=== PATIENT | female | born 1975 | race Caucasian/White ===

== ENCOUNTER 2016-03-20 17:33 | Emergency (ER) | payer BC, MEDICAID ==
[~2016-03-20 17:33] MED LIST: HYDR-3713 PO; IBUP800T23 PO; LORA10TA2 PO; OMEP20CA3 PO; PERC5TAB6 PO; SING10TA32 PO; topamax PO
[2016-03-20 18:59] LABS: BASO % 0.5 % (0.0-1.0); EOS # 0.2 K/mm3 (0.0-0.50); EOS % 3.9 % (0.0-3.0); LARGE UNSTAINED CELL # 0.1 K/mm3 (0.0-0.4); LARGE UNSTAINED CELL % 1.2 % (0.0-4.0); LYMPH # 1.9 K/mm3 (1.5-4.5); LYMPH % 28.7 % (24.0-44.0); MEAN CORPUSCULAR HEMOGLOBIN 26.3 pg (27.0-33.0); MEAN CORPUSCULAR HGB CONC 31.3 g/dl (32.0-36.5); MEAN CORPUSCULAR VOLUME 84.1 fl (80.0-96.0); MONO # 0.3 K/mm3 (0.0-0.8); MONO % 4.2 % (0.0-5.0); NEUTROPHILS # 3.9 K/mm3 (1.8-7.7); NEUTROPHILS % 61.5 % (36.0-66.0); PLATELET COUNT, AUTOMATED 254 k/mm3 (150-450); RED CELL DISTRIBUTION WIDTH 14.3 % (11.5-14.5); WHITE BLOOD COUNT 6.4 K/mm3 (4.0-10.0)
[2016-03-20 19:01] LABS: CONTROL LINE UCG INT CTR LINE PRESENT
[2016-03-20 19:17] LABS: ALBUMIN 3.5 GM/DL (3.2-5.2); ALBUMIN/GLOBULIN RATIO 0.85 (1.00-1.93); ALKALINE PHOSPHATASE 84 U/L (45-117); ALT/SGPT 21 U/L (12-78); AMYLASE 35 U/L (25-115); ANION GAP 7 MEQ/L (8-16); AST/SGOT 16 U/L (15-37); BILIRUBIN,DIRECT < 0.1 MG/DL (0.0-0.2); BILIRUBIN,TOTAL 0.1 MG/DL (0.2-1.0); BLOOD UREA NITROGEN 17 MG/DL (7-18); CARBON DIOXIDE LEVEL 26 MEQ/L (21-32); CHLORIDE LEVEL 107 MEQ/L (98-107); CREATININE FOR GFR 0.86 MG/DL (0.55-1.02); GLOMERULAR FILTRATION RATE > 60.0 (>60); GLUCOSE, FASTING 83 MG/DL (70-105); POTASSIUM SERUM 3.6 MEQ/L (3.5-5.1); SODIUM LEVEL 140 MEQ/L (136-145); TOTAL PROTEIN 7.6 GM/DL (6.4-8.2)
[2016-03-20] MEDS ORDERED: KETOROLAC 30 MG/ML VIAL (J1885) As Ordered ONE (19:24)
[2016-03-20] MEDS ORDERED: GASTROGRAFIN SOLUTION 30ML (Q9963) As Ordered ONE (19:25)
[2016-03-20] MEDS ORDERED: ISOVUE-370 76% 100ML VIAL (Q9967) As Ordered ONE (21:24)
--- NOTE | 2016-03-20 22:30 | REPUSA ---
CT of the abdomen and pelvis with contrast Clinical statement: Pain. Technique: Multiple axial CT images were obtained from the base of the lungs through the floor of the pelvis utilizing 5 mm axial slices after administration of oral and nonionic intravenous contrast. C oronal and sagittal reconstructions were also obtained. Comparison: 06/25/2015. Findings: Chest: The visualized lung bases are clear. Abdomen: The liver, spleen, pancreas, kidneys, and adrenal glands are unremarkable. The aorta is with in normal limits. There is no evidence of abdominal lymphadenopathy or ascites. Pelvis: The bowel is unremarkable, with no obstructive or inflammatory changes. The appendix is adeola l. The urinary bladder is within normal limits. There is a simple left ovarian cyst measuring 2.6 x 2 .6 cm. The other pelvic structures appear grossly intact. There is no evidence of pelvic lymphadenopa thy or ascites. Bones: There is moderately severe degenerative disc disease at L5/S1 with large disc osteophyte compl ex that causes mild central canal narrowing at this level. No acute osseous abnormalities noted.. Impression: 1. Simple left ovarian cyst. 2. No obstructive or inflammatory bowel changes. 3. Moderately severe degenerative disc disease at L5/S1 with disc osteophyte complex causing central canal narrowing. If there is further clinical concern, MRI could be considered.
[2016-03-20] MEDS ORDERED: NORCO 5/325MG TABLET (BULK) As Ordered ONE (22:49)
--- NOTE | 2016-03-20 23:21 | EDDOCDS ---
Nurse's Notes [facility] Name: Kimberly Barahona Age: 40 yrs Sex: Female : 1975 Arrival Date: 03/20/2016 Time: 17:33 Bed TR7 Private MD: [facility] Diagnosis: Other abdominal pain-RIGHT LATERAL;Other ovarian cysts-LEFT, SIMPLE Presentation: 03/20 17:46 Presenting complaint: Patient states: right sided abdominal pain that radiates across [facility] upper abdomen for months. Acute neurological deficits are not present. Mechanism of Injury: No Mechanism of Injury. Adult Sepsis Screening: The patient does not have new or worsening altered mentation. Patient's respiratory rate is less than 22. Systolic blood pressure is greater than 100. Patient has a qSOFA score of 0- Negative Sepsis Screen. Suicide/Homicide risk assessment- the patient denies having any suicidal and/or homicidal ideations and does not present with any other emotional, behavioral or mental health complaints. Status: Patient is not a community service worker or dependent. Transition of care: patient was not received from another setting of care. 17:46 Acuity: MAXIMUS Level 3 [facility] 17:46 Method Of Arrival: Walkin/Carried/Asstd [facility] Triage Assessment: 17:51 General: Appears in no apparent distress, Behavior is appropriate for age, pleasant. [facility] Pain: Location: anterior aspect of right lateral abdomen Pain currently is 5 out of 10 on a pain scale. Pain radiates to right upper quadrant and left upper quadrant Quality of pain is described as stabbing. HIV screening NA for this visit Offered previously. Neurological: Level of Consciousness is awake, alert, Oriented to person, place, time. Respiratory: Airway is patent Respiratory effort is even, unlabored, Respiratory pattern is regular, symmetrical. GI: Reports upper abd pain, Pain is 5 out of 10 on a pain scale. Derm: Skin is pink, warm & dry. Musculoskeletal: No deficits noted. 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 albuterol sulfate 90 mcg/actuation Inhl HFAA 2 puffs every 4 hours as needed (Last dose: Unknown) 2. Claritin 10 mg Oral tab 1 tab once daily (Last dose: 03/19/2016) 3. Prilosec 40 mg Oral cpDR 1 cap once daily (Last dose: 03/19/2016) 4. Singulair 10 mg Oral tab 1 tab once daily (Last dose: 03/19/2016) 5. Topamax Unknown Oral 1 tab daily (Last dose: 03/19/2016) - PMHx: Asthma; Migraines; Ovarian cyst; Hypertension; - PSHx: Cholecystectomy; fibriod and ovary removal; - Social history: Smoking status: Patient states former smoker of tobacco. No barriers to communication noted, The patient speaks fluent Mosotho. - Family history: Not pertinent. - : The pt / caregiver states he / she is not on anticoagulants. Home medication list is obtained from the patient. - Exposure Risk Screening:: None identified. Screenin:46 Screening information is obtained from the patient. Fall risk: No risks identified. pml Assistance ADL's: requires no assistance with activities of daily living. Abuse/DV Screen: The patient / caregiver reports he/she is: not in a situation that causes fear, pain or injury. Nutritional screening: No deficits noted. Advance Directives: Currently, there is no health care proxy. home support is adequate. Assessment: 18:46 General: Appears in no apparent distress, comfortable, Behavior is appropriate for age, pml cooperative. Pain: Location: epigastric area and anterior aspect of right lateral abdomen Pain currently is 5 out of 10 on a pain scale. Neurological: Level of Consciousness is awake, alert, Oriented to person, place, time. Cardiovascular: Capillary refill < 3 seconds. Respiratory: Airway is patent Respiratory effort is even, unlabored. GI: Abdomen is non- distended. GI: Denies nausea, vomiting. Derm: Skin is pink, warm & dry. 19:30 General: Appears in no apparent distress, comfortable, Behavior is appropriate for age, jo3 cooperative. Neurological: Level of Consciousness is awake, alert, Oriented to person, place, time. Respiratory: Airway is patent Respiratory effort is even, unlabored. Derm: Skin is pink, warm & dry. 21:42 General: Pt returned from CT. Tolerated well. No apparent distress. Will continue to ld5 monitor. 23:16 General: Appears in no apparent distress, Behavior is cooperative. Neurological: Level ld5 of Consciousness is awake, alert. Respiratory: Airway is patent Respiratory effort is even, unlabored. GI: Denies nausea. Vital Signs: 17:35 BP 162 / 91; Pulse 86; Resp 18; Temp 97.8(O); Pulse Ox 100% on R/A; Weight 99.79 kg lr2 (R); Height 5 ft. 6 in. (167.64 cm) (R); Pain 5/10; 23:00 BP 159 / 92 (man/); Pulse 73; Resp 18; Temp 97.3(O); Pulse Ox 98% on R/A; Pain 4/10; kb5 17:35 Body Mass Index 35.51 (99.79 kg, 167.64 cm) lr2 Vitals: 17:35 Log In Time: March 20, 2016 at 17:32. lr2 ED Course: 17:34 Patient visited by Zara Pierre. lr2 17:34 Patient moved to Waiting lr2 17:35 [facility] is Private Physician. lr2 17:36 Patient moved to Pre RCE lr2 17:48 Triage Initiated kpj 18:03 Patient moved to Triage 1 srm 18:23 Joselyn Tolentino PA-C is PHCP. dt4 18:24 Ramila Mcdaniels MD is Attending Physician. dt4 18:24 Patient visited by Joselyn Tolentino PA-C. dt4 18:34 Patient moved to I5 / M5 srm 18:46 The patient / caregiver is instructed regarding the plan of care and ED course. Patient alcon has correct armband on for positive identification. Placed in gown. Bed in low position. Call light in reach. Side rails up X2. 18:46 Inserted peripheral IV: 20gauge IV in left antecubital area and blood collected. pml Patient tolerated the procedure well. 18:48 Patient visited by Humera Parks RN. pml 19:52 Patient visited by Tani Dillon PCA. kb5 20:32 Patient visited by Tani Dillon PCA. kb5 21:05 [facility] Payment Agreement was scanned into [employer] and attached to record. gb 21:29 Patient visited by Tani Dillon PCA. kb5 21:43 Patient visited by Zara Qiu RN. ld5 22:38 Edgar Yeh MD is Referral Physician. dt4 22:59 CT ABD & PELVIS: IV and Oral Contrast Returned. EDMS 23:01 Patient visited by Tani Dillon PCA. kb5 23:[address] [facility] ld5 23:16 Discontinued lock intact, bleeding controlled, pressure dressing applied, No ld5 redness/swelling at site. No procedures done that require assistance. 23:21 Patient visited by Zara Qiu,DEONDRE. ld5 Administered Medications: 19:30 Drug: Diatrizoate Meglumine & Sodium 10 ml [diatrizoate meglumine and diat.sodium 66 jo3 %-10 % oral solution (10 mL)] Route: PO; 19:35 Drug: ketorolac 30 mg [ketorolac 30 mg/mL (1 mL) injection solution (1 mL)] Route: IVP; jo3 Site: left antecubital; 20:00 Drug: Diatrizoate Meglumine & Sodium 10 ml [diatrizoate meglumine and diat.sodium 66 jo3 %-10 % oral solution (10 mL)] Route: PO; 23:05 Drug: HYDROcodone-acetaminophen 4 pack- 1 packets [hydrocodone 5 mg-acetaminophen 325 jo3 mg tablet (1 tabs)] {Co-Signature: ld5 (Zara Qiu RN).} Route: PO; 23:20 Follow up: Response: Med's dispensed home ld5 Order Results: Lab Order: Amylase; SPEC'M 03/20/16 18:45 Test: AMYLASE; Value: 35; Range: 25-115; Units: U/L; Status: F Lab Order: Basic Metabolic Profile; SPEC'M 03/20/16 18:45 Test: GLUCOSE, FASTING; Value: 83; Range: 70-105; Units: MG/DL; Status: F Test: BLOOD UREA NITROGEN; Value: 17; Range: 7-18; Units: MG/DL; Status: F Test: CREATININE FOR GFR; Value: 0.86; Range: 0.55-1.02; Units: MG/DL; Status: F Test: GLOMERULAR FILTRATION RATE; Value: > 60.0; Range: >60; Status: F Test: SODIUM LEVEL; Value: 140; Range: 136-145; Units: MEQ/L; Status: F Test: POTASSIUM SERUM; Value: 3.6; Range: 3.5-5.1; Units: MEQ/L; Status: F Test: CHLORIDE LEVEL; Value: 107; Range: 98-107; Units: MEQ/L; Status: F Test: CARBON DIOXIDE LEVEL; Value: 26; Range: 21-32; Units: MEQ/L; Status: F Test: ANION GAP; Value: 7; Range: 8-16; Abnormal: Below low normal; Units: MEQ/L; Status: F Test: CALCIUM LEVEL; Value: 8.0; Range: 8.5-10.1; Abnormal: Below low normal; Units: MG/DL; Status: F Test Note: ; Units are mL/min/1.73 m2 Chronic Kidney Disease Staging per NKF: Stage I & II GFR >=60 Normal to Mildly Decreased Stage III GFR 30-59 Moderately Decreased Stage IV GFR 15-29 Severely Decreased Stage V GFR <15 Very Little GFR Left ESRD GFR <15 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 Lab Order: CBC with Diff; SPEC'M 03/20/16 18:45 Test: WHITE BLOOD COUNT; Value: 6.4; Range: 4.0-10.0; Units: K/mm3; Status: F Test: RED BLOOD COUNT; Value: 4.09; Range: 4.00-5.40; Units: M/mm3; Status: F Test: HEMOGLOBIN; Value: 10.8; Range: 12.0-16.0; Abnormal: Below low normal; Units: g/dl; Status: F Test: HEMATOCRIT; Value: 34.4; Range: 36.0-47.0; Abnormal: Below low normal; Units: %; Status: F Test: MEAN CORPUSCULAR VOLUME; Value: 84.1; Range: 80.0-96.0; Units: fl; Status: F Test: MEAN CORPUSCULAR HEMOGLOBIN; Value: 26.3; Range: 27.0-33.0; Abnormal: Below low normal; Units: pg; Status: F Test: MEAN CORPUSCULAR HGB CONC; Value: 31.3; Range: 32.0-36.5; Abnormal: Below low normal; Units: g/dl; Status: F Test: RED CELL DISTRIBUTION WIDTH; Value: 14.3; Range: 11.5-14.5; Units: %; Status: F Test: PLATELET COUNT, AUTOMATED; Value: 254; Range: 150-450; Units: k/mm3; Status: F Test: NEUTROPHILS %; Value: 61.5; Range: 36.0-66.0; Units: %; Status: F Test: LYMPH %; Value: 28.7; Range: 24.0-44.0; Units: %; Status: F Test: MONO %; Value: 4.2; Range: 0.0-5.0; Units: %; Status: F Test: EOS %; Value: 3.9; Range: 0.0-3.0; Abnormal: Above high normal; Units: %; Status: F Test: BASO %; Value: 0.5; Range: 0.0-1.0; Units: %; Status: F Test: LARGE UNSTAINED CELL %; Value: 1.2; Range: 0.0-4.0; Units: %; Status: F Test: NEUTROPHILS #; Value: 3.9; Range: 1.8-7.7; Units: K/mm3; Status: F Test: LYMPH #; Value: 1.9; Range: 1.5-4.5; Units: K/mm3; Status: F Test: MONO #; Value: 0.3; Range: 0.0-0.8; Units: K/mm3; Status: F Test: EOS #; Value: 0.2; Range: 0.0-0.50; Units: K/mm3; Status: F Test: BASO #; Value: 0.0; Range: 0.0-0.2; Units: K/mm3; Status: F Test: LARGE UNSTAINED CELL #; Value: 0.1; Range: 0.0-0.4; Units: K/mm3; Status: F Lab Order: Lipase; SPEC'M 03/20/16 18:45 Test: LIPASE; Value: 174; Range: 73-393; Units: U/L; Status: F Lab Order: Liver Profile; SPEC' 03/20/16 18:45 Test: AST/SGOT; Value: 16; Range: 15-37; Units: U/L; Status: F Test: ALT/SGPT; Value: 21; Range: 12-78; Units: U/L; Status: F Test: ALKALINE PHOSPHATASE; Value: 84; Range: 45-117; Units: U/L; Status: F Test: BILIRUBIN,TOTAL; Value: 0.1; Range: 0.2-1.0; Abnormal: Below low normal; Units: MG/DL; Status: F Test: BILIRUBIN,DIRECT; Value: < 0.1; Range: 0.0-0.2; Units: MG/DL; Status: F Test: TOTAL PROTEIN; Value: 7.6; Range: 6.4-8.2; Units: GM/DL; Status: F Test: ALBUMIN; Value: 3.5; Range: 3.2-5.2; Units: GM/DL; Status: F Test: ALBUMIN/GLOBULIN RATIO; Value: 0.85; Range: 1.00-1.93; Abnormal: Below low normal; Status: F Lab Order: Urinalysis; SPEC'M 03/20/16 18:08 Test: APPEARANCE, URINE; Value: CLEAR; Range: CLEAR; Status: F Test: COLOR, URINE; Value: YELLOW; Range: YELLOW; Status: F Test: PH,URINE; Value: 7.0; Range: 5.0-9.0; Units: UNITS; Status: F Test: SPECIFIC GRAVITY URINE AUTO; Value: 1.019; Range: 1.002-1.035; Status: F Test: PROTEIN, URINE AUTO; Value: NEGATIVE; Range: NEGATIVE; Units: mg/dL; Status: F Test: GLUCOSE, URINE (UA) AUTO; Value: NEGATIVE; Range: NEGATIVE; Units: mg/dL; Status: F Test: KETONE, URINE AUTO; Value: NEGATIVE; Range: NEGATIVE; Units: mg/dL; Status: F Test: UROBILINOGEN, URINE AUTO; Value: 0.2; Range: 0.0-2.0; Units: mg/dL; Status: F Test: BILIRUBIN, URINE AUTO; Value: NEGATIVE; Range: NEGATIVE; Status: F Test: NITRITE, URINE AUTO; Value: NEGATIVE; Range: NEGATIVE; Status: F Test: LEUKOCYTE ESTERASE, URINE AUTO; Value: TRACE; Range: NEGATIVE; Abnormal: Above high normal; Status: F Test: BLOOD, URINE BLOOD; Value: NEGATIVE; Range: NEGATIVE; Status: F Test: WBC, URINE AUTO; Value: 1; Range: 0-3; Units: /HPF; Status: F Test: RBC, URINE AUTO; Value: 1; Range: 0-3; Units: /HPF; Status: F Test: BACTERIA, URINE AUTO; Value: NEGATIVE; Range: NEGATIVE; Status: F Test: SQUAMOUS EPITHELIAL CELL UR AU; Value: 1; Range: 0-6; Units: /HPF; Status: F Test: HYALINE CAST, URINE AUTO; Value: 0; Range: 0-1; Units: /LPF; Status: F Lab Order: CRP; SPEC'M 03/20/16 18:45 Test: C REACTIVE PROTEIN QUANTITATIV; Value: 0.66; Range: 0.00-0.30; Abnormal: Above high normal; Units: MG/DL; Status: F Lab Order: UCG- In Lab; SPEC'M 03/20/16 18:08 Test: URINE PREG TEST; Value: NEGATIVE; Range: NEGATIVE; Status: F Radiology Order: CT ABD & PELVIS: IV and Oral Contrast Test: CT ABD & PELVIS: IV and Oral Contrast REASON FOR EXAMINATION: right lateral abd pain; ; CT of the abdomen and pelvis with contrast; Clinical statement: Pain.; Technique: Multiple axial CT images were obtained from the base of the lungs through the floor of the; pelvis utilizing 5 mm axial slices after administration of oral and nonionic intravenous contrast. C; oronal and sagittal reconstructions were also obtained.; Comparison: 06/25/2015.; Findings:; Chest: The visualized lung bases are clear.; Abdomen: The liver, spleen, pancreas, kidneys, and adrenal glands are unremarkable. The aorta is with; in normal limits. There is no evidence of abdominal lymphadenopathy or ascites.; Pelvis: The bowel is unremarkable, with no obstructive or inflammatory changes. The appendix is adeola; l. The urinary bladder is within normal limits. There is a simple left ovarian cyst measuring 2.6 x 2; .6 cm. The other pelvic structures appear grossly intact. There is no evidence of pelvic lymphadenopa; thy or ascites.; Bones: There is moderately severe degenerative disc disease at L5/S1 with large disc osteophyte compl; ex that causes mild central canal narrowing at this level. No acute osseous abnormalities noted..; Impression:; 1. Simple left ovarian cyst.; 2. No obstructive or inflammatory bowel changes.; 3. Moderately severe degenerative disc disease at L5/S1 with disc osteophyte complex causing central; canal narrowing. If there is further clinical concern, MRI could be considered.; ; Outcome: 22:43 Discharge ordered by Provider. dt4 23:16 Discharge Assessment: Patient awake, alert and oriented x 3. No cognitive and/or ld5 functional deficits noted. Patient verbalized understanding of disposition instructions. patient administered narcotics - yes. Pt provided with safe discharge. The following High Risk Discharge criteria are identified: None. Discharged to home ambulatory. Condition: stable. Discharge instructions given to patient, Instructed on discharge instructions, follow up and referral plans. medication usage, Demonstrated understanding of instructions, medications, Pt was receptive of discharge instructions/ teaching. Prescriptions given X 1. CT Study completed. Property :Personal belongings accompany Pt. 23:20 Patient left the ED. ld5 Signatures: Dispatcher [employer] EDMS Zaria Guzmán, RN RN Joi Singh, RN RN [facility] Zac, Kallie, Reg Reg gb Archana OntiverosRN RN jo3 Tani Dillon, GREY STOCK RECORDER GREY STOCK RECORDER kb5 Zara Qiu,RN RN ld5 Humera Parks,RN RN Joselyn Silva, PA-C PA-C dt4 Zara Pierre lr2 Zara Qiu RN ld5 [facility]
--- NOTE | 2016-03-20 23:21 | EDDOCDS ---
Physician Documentation [facility] Name: Kimberly Barahona Age: 40 yrs Sex: Female : 1975 Arrival Date: 03/20/2016 Time: 17:33 Bed TR7 Private MD: [facility] Disposition: 03/20/16 22:43 Discharged to Home/Self Care. Impression: Other abdominal pain - RIGHT LATERAL, Other ovarian cysts - LEFT, SIMPLE. - Condition is Stable. - Discharge Instructions: Ovarian Cyst, Abdominal Pain, Women. - Prescriptions for [place] 5- 325 mg Oral Tablet - take 1 tablet by ORAL route every 6 hours As needed MDD: 4 tabs; 12 tablet. - Medication Reconciliation, Local Pharmacy Hours form. - Follow up: Emergency Department; When: As needed; Reason: Worsening of conditions. Follow up: Private Physician; When: 4 - 5 days; Reason: Wound/Symptom Recheck, Recheck today's complaints, Continuance of care. Follow up: Edgar Daily MD; When: Call to arrange an appointment; Reason: Wound/Symptom Recheck, Recheck today's complaints, Continuance of care. - Problem is new. - Symptoms are unchanged. Historical: - Allergies: No known drug Allergies; - Home Meds: 1. albuterol sulfate 90 mcg/actuation Inhl HFAA 2 puffs every 4 hours as needed (Last dose: Unknown) 2. Claritin 10 mg Oral tab 1 tab once daily (Last dose: 03/19/2016) 3. Prilosec 40 mg Oral cpDR 1 cap once daily (Last dose: 03/19/2016) 4. Singulair 10 mg Oral tab 1 tab once daily (Last dose: 03/19/2016) 5. Topamax Unknown Oral 1 tab daily (Last dose: 03/19/2016) - PMHx: Asthma; Migraines; Ovarian cyst; Hypertension; - PSHx: Cholecystectomy; fibriod and ovary removal; - Social history: Smoking status: Patient states former smoker of tobacco. No barriers to communication noted, The patient speaks fluent Tajik. - Family history: Not pertinent. - : The pt / caregiver states he / she is not on anticoagulants. Home medication list is obtained from the patient. - Exposure Risk Screening:: None identified. 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 6 in. (167.64 cm) (R); Pain 5/10; 23:00 BP 159 / 92 (man/); Pulse 73; Resp 18; Temp 97.3(O); Pulse Ox 98% on R/A; Pain 4/10; kb5 17:35 Body Mass Index 35.51 (99.79 kg, 167.64 cm) lr2 MDM: 18:36 ketorolac 30 mg IVP once ordered. dt4 18:36 IV Saline Lock ordered. dt4 18:36 Undress patient appropriately for examination ordered. dt4 18:36 Amylase Ordered. EDMS 18:36 Basic Metabolic Profile Ordered. EDMS 18:36 CBC with Diff Ordered. EDMS 18:36 Lipase Ordered. EDMS 18:36 Liver Profile Ordered. EDMS 18:36 Urinalysis Ordered. EDMS 18:36 Urine Culture Ordered. EDMS 18:37 CRP Ordered. EDMS 18:37 CT ABD & PELVIS: IV and Oral Contrast Ordered. EDMS 18:37 ED course: PT STATES CHRONIC ABDOMINAL PAIN OVER THE PAST FEW MONTHS. STATES HAD A dt4 SURGERY WITH DR. DAILY JANUARY 26, 2016 TO REMOVE HER RIGHT OVARY AND FALLOPIAN TUBE DUE TO A DERMOID CYST.. 18:38 NOTHING BY MOUTH+DIET ordered. EDMS 18:40 ED course: STATES SINCE HER SURGERY WITH DR. DAILY, HER PAIN HAS NOT IMPROVED. STATES dt4 USED TO BE INTERMITTENT AND NOW THE PAIN IS CONSTANT SINCE LAST NIGHT. NOTHING MAKES BETTER OR WORSE. DENIES ANY NAUSEA, VOMITING, DIARRHEA, CONSTIPATION, URINARY SYMPTOMS, BACK PAIN. STATES NOW HER PAIN RADIATES TO THE EPIGASTRIUM. . 18:43 UCG- In Lab Ordered. EDMS 19:35 Diatrizoate Meglumine & Sodium Liquid 10 ml PO once; 1st cup at 1930 ordered. jo3 19:38 Diatrizoate Meglumine & Sodium Liquid 10 ml PO once; 2nd cup at 2000 ordered. jo3 21:05 [facility] Payment Agreement was scanned into [employer] and attached to record. gb 21:09 Financial registration complete. gjb 22:38 HYDROcodone-acetaminophen 4 pack- 5 mg-325 mg 1 packets PO Per package directions; dt4 Dispense with patient. 1 po q4h prn for pain ordered. Administered Medications: 19:30 Drug: Diatrizoate Meglumine & Sodium 10 ml [diatrizoate meglumine and diat.sodium 66 jo3 %-10 % oral solution (10 mL)] Route: PO; 19:35 Drug: ketorolac 30 mg [ketorolac 30 mg/mL (1 mL) injection solution (1 mL)] Route: IVP; jo3 Site: left antecubital; 20:00 Drug: Diatrizoate Meglumine & Sodium 10 ml [diatrizoate meglumine and diat.sodium 66 jo3 %-10 % oral solution (10 mL)] Route: PO; 23:05 Drug: HYDROcodone-acetaminophen 4 pack- 1 packets [hydrocodone 5 mg-acetaminophen 325 jo3 mg tablet (1 tabs)] {Co-Signature: ld5 (Zara Qiu RN).} Route: PO; 23:20 Follow up: Response: Med's dispensed home ld5 Signatures: Dispatcher [employer] EDMS Zaria Guzmán RN RN Kallie Molina, Reg Reg Archana ForresterRN Zara Herr RN RN ld5 Humera ParksRN Joselyn Grayson PA-C PA-C dt4 [facility] Zara layton5 The chart was reviewed and I authenticate all verbal orders and agree with the evaluation and treatment provided.Corrections: (The following items were deleted from the chart) 18:43 18:36 UCG by Nursing ordered. dt4 pml Attachments: 21:05 [facility] Payment Agreement gb MTDD
--- NOTE | 2016-03-23 00:21 | EDDOCDS ---
Nurse's Notes [facility] Name: Kimberly Barahona Age: 40 yrs Sex: Female : 1975 Arrival Date: 03/20/2016 Time: 17:33 Bed TR7 Private MD: [facility] Diagnosis: Other abdominal pain-RIGHT LATERAL;Other ovarian cysts-LEFT, SIMPLE Presentation: 03/20 17:46 Presenting complaint: Patient states: right sided abdominal pain that radiates across [facility] upper abdomen for months. Acute neurological deficits are not present. Mechanism of Injury: No Mechanism of Injury. Adult Sepsis Screening: The patient does not have new or worsening altered mentation. Patient's respiratory rate is less than 22. Systolic blood pressure is greater than 100. Patient has a qSOFA score of 0- Negative Sepsis Screen. Suicide/Homicide risk assessment- the patient denies having any suicidal and/or homicidal ideations and does not present with any other emotional, behavioral or mental health complaints. Status: Patient is not a customer complaint service supervisor or dependent. Transition of care: patient was not received from another setting of care. 17:46 Acuity: MAXIMUS Level 3 [facility] 17:46 Method Of Arrival: Walkin/Carried/Asstd [facility] Triage Assessment: 17:51 General: Appears in no apparent distress, Behavior is appropriate for age, pleasant. [facility] Pain: Location: anterior aspect of right lateral abdomen Pain currently is 5 out of 10 on a pain scale. Pain radiates to right upper quadrant and left upper quadrant Quality of pain is described as stabbing. HIV screening NA for this visit Offered previously. Neurological: Level of Consciousness is awake, alert, Oriented to person, place, time. Respiratory: Airway is patent Respiratory effort is even, unlabored, Respiratory pattern is regular, symmetrical. GI: Reports upper abd pain, Pain is 5 out of 10 on a pain scale. Derm: Skin is pink, warm & dry. Musculoskeletal: No deficits noted. 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 albuterol sulfate 90 mcg/actuation Inhl HFAA 2 puffs every 4 hours as needed (Last dose: Unknown) 2. Claritin 10 mg Oral tab 1 tab once daily (Last dose: 03/19/2016) 3. Prilosec 40 mg Oral cpDR 1 cap once daily (Last dose: 03/19/2016) 4. Singulair 10 mg Oral tab 1 tab once daily (Last dose: 03/19/2016) 5. Topamax Unknown Oral 1 tab daily (Last dose: 03/19/2016) - PMHx: Asthma; Migraines; Ovarian cyst; Hypertension; - PSHx: Cholecystectomy; fibriod and ovary removal; - Social history: Smoking status: Patient states former smoker of tobacco. No barriers to communication noted, The patient speaks fluent [place]. - Family history: Not pertinent. - : The pt / caregiver states he / she is not on anticoagulants. Home medication list is obtained from the patient. - Exposure Risk Screening:: None identified. Screenin:46 Screening information is obtained from the patient. Fall risk: No risks identified. pml Assistance ADL's: requires no assistance with activities of daily living. Abuse/DV Screen: The patient / caregiver reports he/she is: not in a situation that causes fear, pain or injury. Nutritional screening: No deficits noted. Advance Directives: Currently, there is no health care proxy. home support is adequate. Assessment: 18:46 General: Appears in no apparent distress, comfortable, Behavior is appropriate for age, pml cooperative. Pain: Location: epigastric area and anterior aspect of right lateral abdomen Pain currently is 5 out of 10 on a pain scale. Neurological: Level of Consciousness is awake, alert, Oriented to person, place, time. Cardiovascular: Capillary refill < 3 seconds. Respiratory: Airway is patent Respiratory effort is even, unlabored. GI: Abdomen is non- distended. GI: Denies nausea, vomiting. Derm: Skin is pink, warm & dry. 19:30 General: Appears in no apparent distress, comfortable, Behavior is appropriate for age, jo3 cooperative. Neurological: Level of Consciousness is awake, alert, Oriented to person, place, time. Respiratory: Airway is patent Respiratory effort is even, unlabored. Derm: Skin is pink, warm & dry. 21:42 General: Pt returned from CT. Tolerated well. No apparent distress. Will continue to ld5 monitor. 23:16 General: Appears in no apparent distress, Behavior is cooperative. Neurological: Level ld5 of Consciousness is awake, alert. Respiratory: Airway is patent Respiratory effort is even, unlabored. GI: Denies nausea. Vital Signs: 17:35 BP 162 / 91; Pulse 86; Resp 18; Temp 97.8(O); Pulse Ox 100% on R/A; Weight 99.79 kg lr2 (R); Height 5 ft. 6 in. (167.64 cm) (R); Pain 5/10; 23:00 BP 159 / 92 (man/); Pulse 73; Resp 18; Temp 97.3(O); Pulse Ox 98% on R/A; Pain 4/10; kb5 17:35 Body Mass Index 35.51 (99.79 kg, 167.64 cm) lr2 Vitals: 17:35 Log In Time: March 20, 2016 at 17:32. lr2 ED Course: 17:34 Patient visited by Zara Pierre. lr2 17:34 Patient moved to Waiting lr2 17:35 [facility] is Private Physician. lr2 17:36 Patient moved to Pre RCE lr2 17:48 Triage Initiated kpj 18:03 Patient moved to Triage 1 srm 18:23 Joselyn Tolentino PA-C is PHCP. dt4 18:24 Ramila Mcdaniels MD is Attending Physician. dt4 18:24 Patient visited by Joselyn Tolentino PA-C. dt4 18:34 Patient moved to I5 / M5 srm 18:46 The patient / caregiver is instructed regarding the plan of care and ED course. Patient alcon has correct armband on for positive identification. Placed in gown. Bed in low position. Call light in reach. Side rails up X2. 18:46 Inserted peripheral IV: 20gauge IV in left antecubital area and blood collected. pml Patient tolerated the procedure well. 18:48 Patient visited by Humera Parks RN. pml 19:52 Patient visited by Tani Dillon PCA. kb5 20:32 Patient visited by Tani Dillon PCA. kb5 21:05 [facility] Payment Agreement was scanned into [employer] and attached to record. gb 21:29 Patient visited by Tani Dillon PCA. kb5 21:43 Patient visited by Zara Qiu RN. ld5 22:38 Edgar Yeh MD is Referral Physician. dt4 22:59 CT ABD & PELVIS: IV and Oral Contrast Returned. EDMS 23:01 Patient visited by Tani Dillon PCA. kb5 23:02 Patient moved to [facility] ld5 23:16 Discontinued lock intact, bleeding controlled, pressure dressing applied, No ld5 redness/swelling at site. No procedures done that require assistance. 23:21 Patient visited by Zara Qiu,RN. ld5 03/21 10:29 T-Sheet-- Draft Copy was scanned into [employer] and attached to record. gb 10:29 Radiology Report was scanned into [employer] and attached to record. gb Administered Medications: 03/20 19:30 Drug: Diatrizoate Meglumine & Sodium 10 ml [diatrizoate meglumine and diat.sodium 66 jo3 %-10 % oral solution (10 mL)] Route: PO; 19:35 Drug: ketorolac 30 mg [ketorolac 30 mg/mL (1 mL) injection solution (1 mL)] Route: IVP; jo3 Site: left antecubital; 20:00 Drug: Diatrizoate Meglumine & Sodium 10 ml [diatrizoate meglumine and diat.sodium 66 jo3 %-10 % oral solution (10 mL)] Route: PO; 23:05 Drug: HYDROcodone-acetaminophen 4 pack- 1 packets [hydrocodone 5 mg-acetaminophen 325 jo3 mg tablet (1 tabs)] {Co-Signature: ld5 (Zara Qiu RN).} Route: PO; 23:20 Follow up: Response: Med's dispensed home ld5 Order Results: Lab Order: Amylase; SPEC'M 03/20/16 18:45 Test: AMYLASE; Value: 35; Range: 25-115; Units: U/L; Status: F Lab Order: Basic Metabolic Profile; SPEC'M 03/20/16 18:45 Test: GLUCOSE, FASTING; Value: 83; Range: 70-105; Units: MG/DL; Status: F Test: BLOOD UREA NITROGEN; Value: 17; Range: 7-18; Units: MG/DL; Status: F Test: CREATININE FOR GFR; Value: 0.86; Range: 0.55-1.02; Units: MG/DL; Status: F Test: GLOMERULAR FILTRATION RATE; Value: > 60.0; Range: >60; Status: F Test: SODIUM LEVEL; Value: 140; Range: 136-145; Units: MEQ/L; Status: F Test: POTASSIUM SERUM; Value: 3.6; Range: 3.5-5.1; Units: MEQ/L; Status: F Test: CHLORIDE LEVEL; Value: 107; Range: 98-107; Units: MEQ/L; Status: F Test: CARBON DIOXIDE LEVEL; Value: 26; Range: 21-32; Units: MEQ/L; Status: F Test: ANION GAP; Value: 7; Range: 8-16; Abnormal: Below low normal; Units: MEQ/L; Status: F Test: CALCIUM LEVEL; Value: 8.0; Range: 8.5-10.1; Abnormal: Below low normal; Units: MG/DL; Status: F Test Note: ; Units are mL/min/1.73 m2 Chronic Kidney Disease Staging per NKF: Stage I & II GFR >=60 Normal to Mildly Decreased Stage III GFR 30-59 Moderately Decreased Stage IV GFR 15-29 Severely Decreased Stage V GFR <15 Very Little GFR Left ESRD GFR <15 on 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 Lab Order: CBC with Diff; SPEC'M 03/20/16 18:45 Test: WHITE BLOOD COUNT; Value: 6.4; Range: 4.0-10.0; Units: K/mm3; Status: F Test: RED BLOOD COUNT; Value: 4.09; Range: 4.00-5.40; Units: M/mm3; Status: F Test: HEMOGLOBIN; Value: 10.8; Range: 12.0-16.0; Abnormal: Below low normal; Units: g/dl; Status: F Test: HEMATOCRIT; Value: 34.4; Range: 36.0-47.0; Abnormal: Below low normal; Units: %; Status: F Test: MEAN CORPUSCULAR VOLUME; Value: 84.1; Range: 80.0-96.0; Units: fl; Status: F Test: MEAN CORPUSCULAR HEMOGLOBIN; Value: 26.3; Range: 27.0-33.0; Abnormal: Below low normal; Units: pg; Status: F Test: MEAN CORPUSCULAR HGB CONC; Value: 31.3; Range: 32.0-36.5; Abnormal: Below low normal; Units: g/dl; Status: F Test: RED CELL DISTRIBUTION WIDTH; Value: 14.3; Range: 11.5-14.5; Units: %; Status: F Test: PLATELET COUNT, AUTOMATED; Value: 254; Range: 150-450; Units: k/mm3; Status: F Test: NEUTROPHILS %; Value: 61.5; Range: 36.0-66.0; Units: %; Status: F Test: LYMPH %; Value: 28.7; Range: 24.0-44.0; Units: %; Status: F Test: MONO %; Value: 4.2; Range: 0.0-5.0; Units: %; Status: F Test: EOS %; Value: 3.9; Range: 0.0-3.0; Abnormal: Above high normal; Units: %; Status: F Test: BASO %; Value: 0.5; Range: 0.0-1.0; Units: %; Status: F Test: LARGE UNSTAINED CELL %; Value: 1.2; Range: 0.0-4.0; Units: %; Status: F Test: NEUTROPHILS #; Value: 3.9; Range: 1.8-7.7; Units: K/mm3; Status: F Test: LYMPH #; Value: 1.9; Range: 1.5-4.5; Units: K/mm3; Status: F Test: MONO #; Value: 0.3; Range: 0.0-0.8; Units: K/mm3; Status: F Test: EOS #; Value: 0.2; Range: 0.0-0.50; Units: K/mm3; Status: F Test: BASO #; Value: 0.0; Range: 0.0-0.2; Units: K/mm3; Status: F Test: LARGE UNSTAINED CELL #; Value: 0.1; Range: 0.0-0.4; Units: K/mm3; Status: F Lab Order: Lipase; SPEC'M 03/20/16 18:45 Test: LIPASE; Value: 174; Range: 73-393; Units: U/L; Status: F Lab Order: Liver Profile; SPEC'M 03/20/16 18:45 Test: AST/SGOT; Value: 16; Range: 15-37; Units: U/L; Status: F Test: ALT/SGPT; Value: 21; Range: 12-78; Units: U/L; Status: F Test: ALKALINE PHOSPHATASE; Value: 84; Range: 45-117; Units: U/L; Status: F Test: BILIRUBIN,TOTAL; Value: 0.1; Range: 0.2-1.0; Abnormal: Below low normal; Units: MG/DL; Status: F Test: BILIRUBIN,DIRECT; Value: < 0.1; Range: 0.0-0.2; Units: MG/DL; Status: F Test: TOTAL PROTEIN; Value: 7.6; Range: 6.4-8.2; Units: GM/DL; Status: F Test: ALBUMIN; Value: 3.5; Range: 3.2-5.2; Units: GM/DL; Status: F Test: ALBUMIN/GLOBULIN RATIO; Value: 0.85; Range: 1.00-1.93; Abnormal: Below low normal; Status: F Lab Order: Urinalysis; SPEC'M 03/20/16 18:08 Test: APPEARANCE, URINE; Value: CLEAR; Range: CLEAR; Status: F Test: COLOR, URINE; Value: YELLOW; Range: YELLOW; Status: F Test: PH,URINE; Value: 7.0; Range: 5.0-9.0; Units: UNITS; Status: F Test: SPECIFIC GRAVITY URINE AUTO; Value: 1.019; Range: 1.002-1.035; Status: F Test: PROTEIN, URINE AUTO; Value: NEGATIVE; Range: NEGATIVE; Units: mg/dL; Status: F Test: GLUCOSE, URINE (UA) AUTO; Value: NEGATIVE; Range: NEGATIVE; Units: mg/dL; Status: F Test: KETONE, URINE AUTO; Value: NEGATIVE; Range: NEGATIVE; Units: mg/dL; Status: F Test: UROBILINOGEN, URINE AUTO; Value: 0.2; Range: 0.0-2.0; Units: mg/dL; Status: F Test: BILIRUBIN, URINE AUTO; Value: NEGATIVE; Range: NEGATIVE; Status: F Test: NITRITE, URINE AUTO; Value: NEGATIVE; Range: NEGATIVE; Status: F Test: LEUKOCYTE ESTERASE, URINE AUTO; Value: TRACE; Range: NEGATIVE; Abnormal: Above high normal; Status: F Test: BLOOD, URINE BLOOD; Value: NEGATIVE; Range: NEGATIVE; Status: F Test: WBC, URINE AUTO; Value: 1; Range: 0-3; Units: /HPF; Status: F Test: RBC, URINE AUTO; Value: 1; Range: 0-3; Units: /HPF; Status: F Test: BACTERIA, URINE AUTO; Value: NEGATIVE; Range: NEGATIVE; Status: F Test: SQUAMOUS EPITHELIAL CELL UR AU; Value: 1; Range: 0-6; Units: /HPF; Status: F Test: HYALINE CAST, URINE AUTO; Value: 0; Range: 0-1; Units: /LPF; Status: F Lab Order: Urine Culture; SPEC'M 03/20/16 18:08 Test: URINE CULTURE; Value: <EXTERNAL COMMENT eCWMed> FULL REPORT IN LAB NOTES (eCW and Medent).; Status: F Test: URINE CULTURE; Value: URINE CULTURE RESULT NO GROWTH; Status: F Lab Order: CRP; SPEC'M 03/20/16 18:45 Test: C REACTIVE PROTEIN QUANTITATIV; Value: 0.66; Range: 0.00-0.30; Abnormal: Above high normal; Units: MG/DL; Status: F Lab Order: UCG- In Lab; SPEC'M 03/20/16 18:08 Test: URINE PREG TEST; Value: NEGATIVE; Range: NEGATIVE; Status: F Radiology Order: CT ABD & PELVIS: IV and Oral Contrast Test: CT ABD & PELVIS: IV and Oral Contrast REASON FOR EXAMINATION: right lateral abd pain; ; CT of the abdomen and pelvis with contrast; Clinical statement: Pain.; Technique: Multiple axial CT images were obtained from the base of the lungs through the floor of the; pelvis utilizing 5 mm axial slices after administration of oral and nonionic intravenous contrast. C; oronal and sagittal reconstructions were also obtained.; Comparison: 06/25/2015.; Findings:; Chest: The visualized lung bases are clear.; Abdomen: The liver, spleen, pancreas, kidneys, and adrenal glands are unremarkable. The aorta is with; in normal limits. There is no evidence of abdominal lymphadenopathy or ascites.; Pelvis: The bowel is unremarkable, with no obstructive or inflammatory changes. The appendix is adeola; l. The urinary bladder is within normal limits. There is a simple left ovarian cyst measuring 2.6 x 2; .6 cm. The other pelvic structures appear grossly intact. There is no evidence of pelvic lymphadenopa; thy or ascites.; Bones: There is moderately severe degenerative disc disease at L5/S1 with large disc osteophyte compl; ex that causes mild central canal narrowing at this level. No acute osseous abnormalities noted..; Impression:; 1. Simple left ovarian cyst.; 2. No obstructive or inflammatory bowel changes.; 3. Moderately severe degenerative disc disease at L5/S1 with disc osteophyte complex causing central; canal narrowing. If there is further clinical concern, MRI could be considered.; ; Outcome: 22:43 Discharge ordered by Provider. dt4 23:16 Discharge Assessment: Patient awake, alert and oriented x 3. No cognitive and/or ld5 functional deficits noted. Patient verbalized understanding of disposition instructions. patient administered narcotics - yes. Pt provided with safe discharge. The following High Risk Discharge criteria are identified: None. Discharged to home ambulatory. Condition: stable. Discharge instructions given to patient, Instructed on discharge instructions, follow up and referral plans. medication usage, Demonstrated understanding of instructions, medications, Pt was receptive of discharge instructions/ teaching. Prescriptions given X 1. CT Study completed. Property :Personal belongings accompany Pt. 23:20 Patient left the ED. ld5 Signatures: Dispatcher [employer] EDMS Zaria Guzmán RN Joi Narvaez, RN DEONDRE [facility], Kallie, Reg Reg Archana Ontiveros RN RN jo3 Tani Dillon, STITCH MARKER STITCH MARKER kb5 Zara Qiu RN RN ld5 Humera Parks RN RN pml Tschudi, Diane, PA-C PA-C dt4 aZra Pierre lr2 Zara Qiu RN ld5 Chart Complete MTDD
--- NOTE | 2016-03-23 00:21 | EDDOCDS ---
Physician Documentation [facility] Name: Kimberly Barahona Age: 40 yrs Sex: Female : 1975 Arrival Date: 03/20/2016 Time: 17:33 Bed TR7 Private MD: [facility] Disposition: 03/20/16 22:43 Discharged to Home/Self Care. Impression: Other abdominal pain - RIGHT LATERAL, Other ovarian cysts - LEFT, SIMPLE. - Condition is Stable. - Discharge Instructions: Ovarian Cyst, Abdominal Pain, Women. - Prescriptions for [place] 5- 325 mg Oral Tablet - take 1 tablet by ORAL route every 6 hours As needed MDD: 4 tabs; 12 tablet. - Medication Reconciliation, Local Pharmacy Hours form. - Follow up: Emergency Department; When: As needed; Reason: Worsening of conditions. Follow up: Private Physician; When: 4 - 5 days; Reason: Wound/Symptom Recheck, Recheck today's complaints, Continuance of care. Follow up: Edgar Daily MD; When: Call to arrange an appointment; Reason: Wound/Symptom Recheck, Recheck today's complaints, Continuance of care. - Problem is new. - Symptoms are unchanged. Historical: - Allergies: No known drug Allergies; - Home Meds: 1. albuterol sulfate 90 mcg/actuation Inhl HFAA 2 puffs every 4 hours as needed (Last dose: Unknown) 2. Claritin 10 mg Oral tab 1 tab once daily (Last dose: 03/19/2016) 3. Prilosec 40 mg Oral cpDR 1 cap once daily (Last dose: 03/19/2016) 4. Singulair 10 mg Oral tab 1 tab once daily (Last dose: 03/19/2016) 5. Topamax Unknown Oral 1 tab daily (Last dose: 03/19/2016) - PMHx: Asthma; Migraines; Ovarian cyst; Hypertension; - PSHx: Cholecystectomy; fibriod and ovary removal; - Social history: Smoking status: Patient states former smoker of tobacco. No barriers to communication noted, The patient speaks fluent [place]. - Family history: Not pertinent. - : The pt / caregiver states he / she is not on anticoagulants. Home medication list is obtained from the patient. - Exposure Risk Screening:: None identified. 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 6 in. (167.64 cm) (R); Pain 5/10; 23:00 BP 159 / 92 (man/); Pulse 73; Resp 18; Temp 97.3(O); Pulse Ox 98% on R/A; Pain 4/10; kb5 17:35 Body Mass Index 35.51 (99.79 kg, 167.64 cm) lr2 MDM: 18:36 ketorolac 30 mg IVP once ordered. dt4 18:36 IV Saline Lock ordered. dt4 18:36 Undress patient appropriately for examination ordered. dt4 18:36 Amylase Ordered. EDMS 18:36 Basic Metabolic Profile Ordered. EDMS 18:36 CBC with Diff Ordered. EDMS 18:36 Lipase Ordered. EDMS 18:36 Liver Profile Ordered. EDMS 18:36 Urinalysis Ordered. EDMS 18:36 Urine Culture Ordered. EDMS 18:37 CRP Ordered. EDMS 18:37 CT ABD & PELVIS: IV and Oral Contrast Ordered. EDMS 18:37 ED course: PT STATES CHRONIC ABDOMINAL PAIN OVER THE PAST FEW MONTHS. STATES HAD A dt4 SURGERY WITH DR. DAILY JANUARY 26, 2016 TO REMOVE HER RIGHT OVARY AND FALLOPIAN TUBE DUE TO A DERMOID CYST.. 18:38 NOTHING BY MOUTH+DIET ordered. EDMS 18:40 ED course: STATES SINCE HER SURGERY WITH DR. DAILY, HER PAIN HAS NOT IMPROVED. STATES dt4 USED TO BE INTERMITTENT AND NOW THE PAIN IS CONSTANT SINCE LAST NIGHT. NOTHING MAKES BETTER OR WORSE. DENIES ANY NAUSEA, VOMITING, DIARRHEA, CONSTIPATION, URINARY SYMPTOMS, BACK PAIN. STATES NOW HER PAIN RADIATES TO THE EPIGASTRIUM. . 18:43 UCG- In Lab Ordered. EDMS 19:35 Diatrizoate Meglumine & Sodium Liquid 10 ml PO once; 1st cup at 1930 ordered. jo3 19:38 Diatrizoate Meglumine & Sodium Liquid 10 ml PO once; 2nd cup at 2000 ordered. jo3 21:05 [facility] [place] [place] Payment Agreement was scanned into [employer] and attached to record. gb 21:09 Financial registration complete. gjb 22:38 HYDROcodone-acetaminophen 4 pack- 5 mg-325 mg 1 packets PO Per package directions; dt4 Dispense with patient. 1 po q4h prn for pain ordered. 03/21 10:29 T-Sheet-- Draft Copy was scanned into [employer] and attached to record. gb 10:29 Radiology Report was scanned into [employer] and attached to record. gb Administered Medications: 03/20 19:30 Drug: Diatrizoate Meglumine & Sodium 10 ml [diatrizoate meglumine and diat.sodium 66 jo3 %-10 % oral solution (10 mL)] Route: PO; 19:35 Drug: ketorolac 30 mg [ketorolac 30 mg/mL (1 mL) injection solution (1 mL)] Route: IVP; jo3 Site: left antecubital; 20:00 Drug: Diatrizoate Meglumine & Sodium 10 ml [diatrizoate meglumine and diat.sodium 66 jo3 %-10 % oral solution (10 mL)] Route: PO; 23:05 Drug: HYDROcodone-acetaminophen 4 pack- 1 packets [hydrocodone 5 mg-acetaminophen 325 jo3 mg tablet (1 tabs)] {Co-Signature: ld5 (Zara Qiu RN).} Route: PO; 23:20 Follow up: Response: Med's dispensed home ld5 Signatures: Dispatcher [employer] EDZaria Larios RN RN Kallie Hand, Reg Reg Archana Forrester RN RN jo3 Dickerson, Laura, RN RN ld5 Humera Parks RN RN pml Tschudi, Diane, PA-C PA-C dt4 Beck, Gabriela gjb Laura Dickerson RN ld5 The chart was reviewed and I authenticate all verbal orders and agree with the evaluation and treatment provided.Corrections: (The following items were deleted from the chart) 18:43 18:36 UCG by Nursing ordered. anil rondon Attachments: 21:05 [facility] Payment Agreement gb 03/21 10:29 T-Sheet-- Draft Copy gb Chart Complete MTDD
--- NOTE | 2016-03-23 00:21 | EDDOCDS ---
Physician Documentation [facility] Name: Kimberly Barahona Age: 40 yrs Sex: Female : 1975 Arrival Date: 03/20/2016 Time: 17:33 Bed TR7 Private MD: [facility] - Adults Disposition: 03/20/16 22:43 Discharged to Home/Self Care. Impression: Other abdominal pain - RIGHT LATERAL, Other ovarian cysts - LEFT, SIMPLE. - Condition is Stable. - Discharge Instructions: Ovarian Cyst, Abdominal Pain, Women. - Prescriptions for Morgan 5- 325 mg Oral Tablet - take 1 tablet by ORAL route every 6 hours As needed MDD: 4 tabs; 12 tablet. - Medication Reconciliation, Local Pharmacy Hours form. - Follow up: Emergency Department; When: As needed; Reason: Worsening of conditions. Follow up: Private Physician; When: 4 - 5 days; Reason: Wound/Symptom Recheck, Recheck today's complaints, Continuance of care. Follow up: Edgar Daily MD; When: Call to arrange an appointment; Reason: Wound/Symptom Recheck, Recheck today's complaints, Continuance of care. - Problem is new. - Symptoms are unchanged. Historical: - Allergies: No known drug Allergies; - Home Meds: 1. albuterol sulfate 90 mcg/actuation Inhl HFAA 2 puffs every 4 hours as needed (Last dose: Unknown) 2. Claritin 10 mg Oral tab 1 tab once daily (Last dose: 03/19/2016) 3. Prilosec 40 mg Oral cpDR 1 cap once daily (Last dose: 03/19/2016) 4. Singulair 10 mg Oral tab 1 tab once daily (Last dose: 03/19/2016) 5. Topamax Unknown Oral 1 tab daily (Last dose: 03/19/2016) - PMHx: Asthma; Migraines; Ovarian cyst; Hypertension; - PSHx: Cholecystectomy; fibriod and ovary removal; - Social history: Smoking status: Patient states former smoker of tobacco. No barriers to communication noted, The patient speaks fluent Azeri. - Family history: Not pertinent. - : The pt / caregiver states he / she is not on anticoagulants. Home medication list is obtained from the patient. - Exposure Risk Screening:: None identified. 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 6 in. (167.64 cm) (R); Pain 5/10; 23:00 BP 159 / 92 (man/); Pulse 73; Resp 18; Temp 97.3(O); Pulse Ox 98% on R/A; Pain 4/10; kb5 17:35 Body Mass Index 35.51 (99.79 kg, 167.64 cm) lr2 MDM: 18:36 ketorolac 30 mg IVP once ordered. dt4 18:36 IV Saline Lock ordered. dt4 18:36 Undress patient appropriately for examination ordered. dt4 18:36 Amylase Ordered. EDMS 18:36 Basic Metabolic Profile Ordered. EDMS 18:36 CBC with Diff Ordered. EDMS 18:36 Lipase Ordered. EDMS 18:36 Liver Profile Ordered. EDMS 18:36 Urinalysis Ordered. EDMS 18:36 Urine Culture Ordered. EDMS 18:37 CRP Ordered. EDMS 18:37 CT ABD & PELVIS: IV and Oral Contrast Ordered. EDMS 18:37 ED course: PT STATES CHRONIC ABDOMINAL PAIN OVER THE PAST FEW MONTHS. STATES HAD A dt4 SURGERY WITH DR. DAILY JANUARY 26, 2016 TO REMOVE HER RIGHT OVARY AND FALLOPIAN TUBE DUE TO A DERMOID CYST.. 18:38 NOTHING BY MOUTH+DIET ordered. EDMS 18:40 ED course: STATES SINCE HER SURGERY WITH DR. DAILY, HER PAIN HAS NOT IMPROVED. STATES dt4 USED TO BE INTERMITTENT AND NOW THE PAIN IS CONSTANT SINCE LAST NIGHT. NOTHING MAKES BETTER OR WORSE. DENIES ANY NAUSEA, VOMITING, DIARRHEA, CONSTIPATION, URINARY SYMPTOMS, BACK PAIN. STATES NOW HER PAIN RADIATES TO THE EPIGASTRIUM. . 18:43 UCG- In Lab Ordered. EDMS 19:35 Diatrizoate Meglumine & Sodium Liquid 10 ml PO once; 1st cup at 1930 ordered. jo3 19:38 Diatrizoate Meglumine & Sodium Liquid 10 ml PO once; 2nd cup at 2000 ordered. jo3 21:05 [facility] [place] was scanned into [employer]atia and attached to record. gb 21:09 Financial registration complete. gjb 22:38 HYDROcodone-acetaminophen 4 pack- 5 mg-325 mg 1 packets PO Per package directions; dt4 Dispense with patient. 1 po q4h prn for pain ordered. 03/21 10:29 T-Sheet-- Draft Copy was scanned into [employer]ia and attached to record. gb 10:29 Radiology Report was scanned into [employer]ia and attached to record. gb Administered Medications: 03/20 19:30 Drug: Diatrizoate Meglumine & Sodium 10 ml [diatrizoate meglumine and diat.sodium 66 jo3 %-10 % oral solution (10 mL)] Route: PO; 19:35 Drug: ketorolac 30 mg [ketorolac 30 mg/mL (1 mL) injection solution (1 mL)] Route: IVP; jo3 Site: left antecubital; 20:00 Drug: Diatrizoate Meglumine & Sodium 10 ml [diatrizoate meglumine and diat.sodium 66 jo3 %-10 % oral solution (10 mL)] Route: PO; 23:05 Drug: HYDROcodone-acetaminophen 4 pack- 1 packets [hydrocodone 5 mg-acetaminophen 325 jo3 mg tablet (1 tabs)] {Co-Signature: ld5 (Zara Qiu RN).} Route: PO; 23:20 Follow up: Response: Med's dispensed home ld5 Signatures: Dispatcher [employer] EDZaria Larios RN RN Kallie Hand, Reg Reg Archana Forrester RN RN jo3 Dickerson, Laura, RN RN ld5 Humera Parks RN RN pml Tschudi, Diane, PA-C PA-C dt4 Beck, Gabriela gjb Laura Dickerson RN ld5 The chart was reviewed and I authenticate all verbal orders and agree with the evaluation and treatment provided.Corrections: (The following items were deleted from the chart) 18:43 18:36 UCG by Nursing ordered. anil rondon Attachments: 21:05 [facility] Payment Agreement gb 03/21 10:29 T-Sheet-- Draft Copy gb Chart Complete MTDD
== END 2016-03-20 23:20 | disposition home or self-care (01) ==
LOC: M ED 17:33
DX: N83.292 Other ovarian cyst, left side (principal); M51.37 Other intervertebral disc degeneration, lumbosacral region; R10.9 Unspecified abdominal pain; I10 Essential (primary) hypertension; G43.909 Migraine, unspecified, not intractable, without status migrainosus; Z90.49 Acquired absence of other specified parts of digestive tract; Z87.891 Personal history of nicotine dependence; Z79.899 Other long term (current) drug therapy
CPT/HCPCS: 36415; 74177; 80048; 80076; 81001; 82150; 83690; 84703; 85025; 86140; 87086; 96374; 99284; J1885; Q9963; Q9967

== ENCOUNTER 2016-11-04 17:35 | Emergency (ER) | payer BC, MEDICAID ==
[~2016-11-04] VITALS: Ht 167.6 cm; Wt 95.5 kg
[~2016-11-04 17:35] MED LIST changes: +IBUP1TAB7 PO; -IBUP800T23 PO; +PERC5TAB12 PO; -PERC5TAB6 PO
[2016-11-04] MEDS ORDERED: TRAM50TA2 PO (20:47)
[2016-11-04] MEDS ORDERED: CYCL10TA PO (20:47)
[2016-11-04 20:53] VITALS: BP 158/78
== END 2016-11-04 20:53 | disposition home or self-care (01) ==
LOC: M ED 17:35
DX: M75.81 Other shoulder lesions, right shoulder (principal); M54.12 Radiculopathy, cervical region; J45.909 Unspecified asthma, uncomplicated; Z79.899 Other long term (current) drug therapy

== ENCOUNTER → 2016-11-11 | Outpatient (CLI) | payer BC, MEDICAID ==
[~2016-11-11] MED LIST changes: +CYCL10TA PO; +TRAM50TA2 PO
--- NOTE | 2016-11-12 01:20 | REP ---
Clinical: Right shoulder pain . Technique: Internal rotation, external rotation, and Y view right shoulder . Findings: No acute fracture or dislocation. The acromioclavicular and glenohumeral joints are intact. No periarticular calcifications or degenerative changes are appreciated. Sub acromial space is normal. Surrounding soft tissues are unremarkable. Impression: Normal right shoulder radiographs. Signed by Marlon Fregoso MD 11/12/2016 01:11 A
== END ==
LOC: M RAD 12:21
PROVIDERS: ATTEND Family Medicine Addiction Medicine
DX: M25.511 Pain in right shoulder (principal)

== ENCOUNTER 2017-04-22 08:40 | Emergency (ER) | payer BC, MEDICAID ==
[2017-04-22] MEDS: ONDANSETRON 4MG/2ML VIAL (J2405) IV (09:44)
[2017-04-22] MEDS: NS 1,000 ML IV (09:44)
[2017-04-22 10:08] LABS: CONTROL LINE UCG INT CTR LINE PRESENT; URINE PREG TEST NEGATIVE (NEGATIVE)
[2017-04-22 10:14] LABS: APPEARANCE, URINE HAZY (CLEAR); BACTERIA, URINE AUTO NEGATIVE (NEGATIVE); BILIRUBIN, URINE AUTO NEGATIVE (NEGATIVE); BLOOD, URINE BLOOD NEGATIVE (NEGATIVE); COLOR, URINE YELLOW (YELLOW); GLUCOSE, URINE (UA) AUTO NEGATIVE (NEGATIVE); KETONE, URINE AUTO NEGATIVE (NEGATIVE); LEUKOCYTE ESTERASE, URINE AUTO NEGATIVE (NEGATIVE); MUCUS, URINE SMALL (NEGATIVE); NITRITE, URINE AUTO NEGATIVE (NEGATIVE); PROTEIN, URINE AUTO NEGATIVE (NEGATIVE); RBC, URINE AUTO 2 /HPF (0-3); SPECIFIC GRAVITY URINE AUTO 1.024 (1.002-1.035); SQUAMOUS EPITHELIAL CELL UR AU 1 /HPF (0-6); UROBILINOGEN, URINE AUTO 0.2 mg/dL (0.0-2.0); WBC, URINE AUTO 0 /HPF (0-3)
[2017-04-22] MEDS: PANTOPRAZOLE 40MG INJ (PROTONIX) (C9113) IV (10:15)
[2017-04-22] MEDS: PROMETHAZINE 25 MG TAB PO (10:15)
[2017-04-22] MEDS: GI COCKTAIL 50ML BTL(HYOSCYAMINE/MAALOX/LIDOCAINE VISCOUS)(1:3:1) PO (10:15)
[2017-04-22] MEDS: KETOROLAC 30 MG/ML VIAL (J1885) IV (10:15)
[2017-04-22 10:18] LABS: BASO % 0.1 % (0.0-1.0); EOS # 0.1 10^3/uL (0.0-0.50); EOS % 1.1 % (0.0-3.0); HEMATOCRIT 36.9 % (36.0-47.0); HEMOGLOBIN 11.5 g/dl (12.0-16.0); IMMATURE GRANULOCYTE % 0.3 % (0-3.0); LYMPH # 0.7 10^3/uL (1.5-4.5); LYMPH % 7.6 % (24.0-44.0); MEAN CORPUSCULAR HEMOGLOBIN 25.3 pg (27.0-33.0); MEAN CORPUSCULAR HGB CONC 31.2 g/dl (32.0-36.5); MEAN CORPUSCULAR VOLUME 81.3 fl (80.0-96.0); MONO # 0.3 10^3/uL (0.0-0.8); MONO % 2.8 % (0.0-5.0); NEUTROPHILS # 8.3 10^3/uL (1.8-7.7); NEUTROPHILS % 88.1 % (36.0-66.0); PLATELET COUNT, AUTOMATED 288 10^3/uL (150-450); RED BLOOD COUNT 4.54 10^6/uL (4.00-5.40); RED CELL DISTRIBUTION WIDTH 15.9 % (11.5-14.5); WHITE BLOOD COUNT 9.4 10^3/uL (4.0-10.0)
[2017-04-22 10:29] LABS: ALBUMIN 3.6 GM/DL (3.2-5.2); ALKALINE PHOSPHATASE 94 U/L (45-117); ALT/SGPT 24 U/L (12-78); ANION GAP 7 MEQ/L (8-16); AST/SGOT 20 U/L (7-37); BILIRUBIN,TOTAL 0.6 MG/DL (0.2-1.0); BLOOD UREA NITROGEN 19 MG/DL (7-18); CALCIUM LEVEL 8.2 MG/DL (8.5-10.1); CARBON DIOXIDE LEVEL 25 MEQ/L (21-32); CHLORIDE LEVEL 108 MEQ/L (98-107); GLOMERULAR FILTRATION RATE > 60.0 (>58); GLUCOSE, FASTING 107 MG/DL (70-100); LIPASE 114 U/L (73-393); POTASSIUM SERUM 3.7 MEQ/L (3.5-5.1); SODIUM LEVEL 140 MEQ/L (136-145); TOTAL PROTEIN 8.1 GM/DL (6.4-8.2)
[2017-04-22 10:39] LABS: INFLUENZA A AMPLIFICATION NEGATIVE (NEGATIVE); INFLUENZA B AMPLIFICATION NEGATIVE (NEGATIVE)
== END 2017-04-22 12:22 | disposition home or self-care (01) ==
LOC: M ED 08:40
DX: R11.2 Nausea with vomiting, unspecified (principal); M54.5 Low back pain; J45.909 Unspecified asthma, uncomplicated; R51 Headache; Z79.899 Other long term (current) drug therapy; Z87.891 Personal history of nicotine dependence; Z87.42 Personal history of other diseases of the female genital tract; Z98.890 Other specified postprocedural states
CPT/HCPCS: C9113

== ENCOUNTER 2017-08-08 08:57 | Emergency (ER) | payer BC, MEDICAID ==
[2017-08-08] MEDS: PANTOPRAZOLE 40MG INJ (PROTONIX) (C9113) IV (09:55)
[2017-08-08] MEDS: GI COCKTAIL 50ML BTL(HYOSCYAMINE/MAALOX/LIDOCAINE VISCOUS)(1:3:1) PO (09:55)
[2017-08-08] MEDS: ONDANSETRON 4MG/2ML VIAL (J2405) IV (09:55)
[2017-08-08] MEDS: KETOROLAC 30 MG/ML VIAL (J1885) IV (09:55)
[2017-08-08] MEDS: NS 1,000 ML IV (09:55)
[2017-08-08 10:13] LABS: KETONE, URINE AUTO RFX NEGATIVE (NEGATIVE); MUCUS, URINE RFX SMALL (NEGATIVE); NITRITE, URINE AUTO RFX NEGATIVE (NEGATIVE); RBC, URINE AUTO RFX 1 /HPF (0-3); SPECIFIC GRAVITY UR AUTO RFX 1.023 (1.002-1.035); SQUAM EPITHELIAL CELL UR AURFX 2 /HPF (0-6); WBC, URINE AUTO RFX 1 /HPF (0-3)
[2017-08-08 10:14] LABS: LEUKOCYTE ESTERASE UR AUTO RFX TRACE (NEGATIVE)
[2017-08-08] MEDS: GASTROGRAFIN SOLUTION 30ML PO ×2 (10:30→10:57)
[2017-08-08 10:48] LABS: BASO # 0.1 10^3/uL (0.0-0.2); BASO % 0.7 % (0.0-1.0); EOS # 0.2 10^3/uL (0.0-0.50); HEMATOCRIT 32.9 % (36.0-47.0); HEMOGLOBIN 10.5 g/dl (12.0-15.5); IMMATURE GRANULOCYTE % 0.5 % (0-3.0); LYMPH % 26.9 % (24.0-44.0); MEAN CORPUSCULAR HEMOGLOBIN 26.2 pg (27.0-33.0); MEAN CORPUSCULAR HGB CONC 31.9 g/dl (32.0-36.5); MONO # 0.5 10^3/uL (0.0-0.8); MONO % 6.7 % (0.0-5.0); NEUTROPHILS # 4.6 10^3/uL (1.8-7.7); NEUTROPHILS % 63.2 % (36.0-66.0); PLATELET COUNT, AUTOMATED 287 10^3/uL (150-450); RED BLOOD COUNT 4.01 10^6/uL (4.00-5.40); RED CELL DISTRIBUTION WIDTH 16.3 % (11.5-14.5); WHITE BLOOD COUNT 7.3 10^3/uL (4.0-10.0)
[2017-08-08 11:05] LABS: CONTROL LINE HCG INT CTR LINE PRESENT; HCG, SERUM QUALITATIVE POSITIVE (NEGATIVE)
[2017-08-08 11:16] LABS: ALBUMIN 3.1 GM/DL (3.2-5.2); ALBUMIN/GLOBULIN RATIO 0.82 (1.00-1.93); ALKALINE PHOSPHATASE 65 U/L (45-117); ALT/SGPT 18 U/L (12-78); ANION GAP 6 MEQ/L (8-16); AST/SGOT 13 U/L (7-37); BILIRUBIN,TOTAL 0.3 MG/DL (0.2-1.0); BLOOD UREA NITROGEN 11 MG/DL (7-18); CALCIUM LEVEL 8.1 MG/DL (8.5-10.1); CARBON DIOXIDE LEVEL 25 MEQ/L (21-32); CHLORIDE LEVEL 114 MEQ/L (98-107); CPK CREATINE PHOSPHOKINASE 109 U/L (26-192); CREATININE FOR GFR 0.79 MG/DL (0.55-1.30); GLOMERULAR FILTRATION RATE > 60.0 (>58); GLUCOSE, FASTING 111 MG/DL (70-100); LIPASE 146 U/L (73-393); MB/CK RELATIVE INDEX 0.91 (< OR =4); POTASSIUM SERUM 4.3 MEQ/L (3.5-5.1); SODIUM LEVEL 145 MEQ/L (136-145); TOTAL PROTEIN 6.9 GM/DL (6.4-8.2); TROPONIN I < 0.02 NG/ML (< 0.10)
[2017-08-08 11:52] LABS: HCG, SERUM QUANTITATIVE 657 MIU/ML
== END 2017-08-08 14:57 | disposition home or self-care (01) ==
LOC: M ED 08:57
DX: O99.619 Diseases of the digestive system complicating pregnancy, unspecified trimester (principal); Z32.01 Encounter for pregnancy test, result positive; R51 Headache; O99.519 Diseases of the respiratory system complicating pregnancy, unspecified trimester; O03.9 Complete or unspecified spontaneous abortion without complication; O00.90 Unspecified ectopic pregnancy without intrauterine pregnancy; O34.80 Maternal care for other abnormalities of pelvic organs, unspecified trimester; O34.10 Maternal care for benign tumor of corpus uteri, unspecified trimester; Z90.721 Acquired absence of ovaries, unilateral; O09.519 Supervision of elderly primigravida, unspecified trimester; Z87.11 Personal history of peptic ulcer disease; Z87.19 Personal history of other diseases of the digestive system; Z79.899 Other long term (current) drug therapy
CPT/HCPCS: C9113

== ENCOUNTER → 2017-08-10 | Outpatient (CLI) | payer BC, MEDICAID ==
[2017-08-10 13:32] LABS: HCG, SERUM QUANTITATIVE 1687 MIU/ML
== END ==
LOC: M LAB 11:41
DX: Z34.80 Encounter for supervision of other normal pregnancy, unspecified trimester (principal)
CPT/HCPCS: 84702

== ENCOUNTER → 2017-09-06 | Outpatient (REF) | payer MEDICAID ==
[2017-09-06 18:12] LABS: APPEARANCE, URINE HAZY (CLEAR); BACTERIA, URINE AUTO 1+ (NEGATIVE); BILIRUBIN, URINE AUTO NEGATIVE (NEGATIVE); BLOOD, URINE BLOOD 2+ (NEGATIVE); COLOR, URINE YELLOW (YELLOW); GLUCOSE, URINE (UA) AUTO NEGATIVE (NEGATIVE); KETONE, URINE AUTO NEGATIVE (NEGATIVE); LEUKOCYTE ESTERASE, URINE AUTO 2+ (NEGATIVE); MUCUS, URINE SMALL (NEGATIVE); NITRITE, URINE AUTO NEGATIVE (NEGATIVE); PROTEIN, URINE AUTO NEGATIVE (NEGATIVE); RBC, URINE AUTO 2 /HPF (0-3); SPECIFIC GRAVITY URINE AUTO 1.015 (1.002-1.035); SQUAMOUS EPITHELIAL CELL UR AU 3 /HPF (0-6); UROBILINOGEN, URINE AUTO 0.2 mg/dL (0.0-2.0); WBC, URINE AUTO 8 /HPF (0-3)
== END ==
LOC: M LAB REF 16:32
DX: N39.0 Urinary tract infection, site not specified (principal)

== ENCOUNTER 2017-09-08 17:01 | Emergency (ER) | payer BC, MEDICAID ==
[2017-09-08 18:03] LABS: BASO % 0.3 % (0.0-1.0); EOS # 0.2 10^3/uL (0.0-0.50); EOS % 1.6 % (0.0-3.0); HEMATOCRIT 31.5 % (36.0-47.0); HEMOGLOBIN 10.2 g/dl (12.0-15.5); IMMATURE GRANULOCYTE % 0.4 % (0-3.0); LYMPH # 2.2 10^3/uL (1.5-4.5); MEAN CORPUSCULAR HEMOGLOBIN 26.4 pg (27.0-33.0); MEAN CORPUSCULAR HGB CONC 32.4 g/dl (32.0-36.5); MEAN CORPUSCULAR VOLUME 81.6 fl (80.0-96.0); MONO # 0.6 10^3/uL (0.0-0.8); MONO % 6.4 % (0.0-5.0); NEUTROPHILS # 6.3 10^3/uL (1.8-7.7); NEUTROPHILS % 67.3 % (36.0-66.0); PLATELET COUNT, AUTOMATED 227 10^3/uL (150-450); RED BLOOD COUNT 3.86 10^6/uL (4.00-5.40); RED CELL DISTRIBUTION WIDTH 15.7 % (11.5-14.5); WHITE BLOOD COUNT 9.3 10^3/uL (4.0-10.0)
[2017-09-08 18:12] LABS: APPEARANCE, URINE HAZY (CLEAR); BACTERIA, URINE AUTO 1+ (NEGATIVE); BILIRUBIN, URINE AUTO NEGATIVE (NEGATIVE); BLOOD, URINE BLOOD NEGATIVE (NEGATIVE); COLOR, URINE YELLOW (YELLOW); GLUCOSE, URINE (UA) AUTO NEGATIVE (NEGATIVE); KETONE, URINE AUTO NEGATIVE (NEGATIVE); LEUKOCYTE ESTERASE, URINE AUTO 3+ (NEGATIVE); MUCUS, URINE SMALL (NEGATIVE); NITRITE, URINE AUTO NEGATIVE (NEGATIVE); PROTEIN, URINE AUTO NEGATIVE (NEGATIVE); RBC, URINE AUTO 4 /HPF (0-3); SPECIFIC GRAVITY URINE AUTO 1.019 (1.002-1.035); SQUAMOUS EPITHELIAL CELL UR AU 2 /HPF (0-6); WBC, URINE AUTO 2 /HPF (0-3)
[2017-09-08 18:41] LABS: ANION GAP 9 MEQ/L (8-16); BLOOD UREA NITROGEN 13 MG/DL (7-18); CALCIUM LEVEL 8.4 MG/DL (8.5-10.1); CARBON DIOXIDE LEVEL 23 MEQ/L (21-32); CHLORIDE LEVEL 107 MEQ/L (98-107); CREATININE FOR GFR 0.86 MG/DL (0.55-1.30); GLOMERULAR FILTRATION RATE > 60.0 (>58); GLUCOSE, FASTING 81 MG/DL (70-100); HCG, SERUM QUANTITATIVE 81271 MIU/ML; POTASSIUM SERUM 3.6 MEQ/L (3.5-5.1); SODIUM LEVEL 139 MEQ/L (136-145)
[2017-09-08] MEDS: MORPHINE 4 MG/ML 1ML VIAL/SYRINGE (J2270) IV ×2 (19:26)
[2017-09-08] MEDS: NS 1,000 ML IV ×2 (19:27)
[2017-09-08] MEDS: cefTRIAXone SOD 1 GM in D5W MINI-BAG PLUS 50 ML IV (21:00)
== END 2017-09-08 22:47 | disposition home or self-care (01) ==
LOC: M ED 17:01
DX: O23.41 Unspecified infection of urinary tract in pregnancy, first trimester (principal); Z3A.08 8 weeks gestation of pregnancy; O09.521 Supervision of elderly multigravida, first trimester; O99.611 Diseases of the digestive system complicating pregnancy, first trimester; O99.511 Diseases of the respiratory system complicating pregnancy, first trimester; Z79.899 Other long term (current) drug therapy
CPT/HCPCS: J2270

== ENCOUNTER 2017-09-09 15:01 | Inpatient (IN) | payer BC, MEDICAID ==
[2017-09-09] MEDS: MORPHINE 4 MG/ML 1ML VIAL/SYRINGE (J2270) IV ×4 (15:30→22:00)
[2017-09-09 17:01] LABS: BASO % 0.2 % (0.0-1.0); EOS # 0.1 10^3/uL (0.0-0.50); EOS % 0.7 % (0.0-3.0); IMMATURE GRANULOCYTE % 0.4 % (0-3.0); LYMPH # 1.9 10^3/uL (1.5-4.5); LYMPH % 15.5 % (24.0-44.0); MEAN CORPUSCULAR HEMOGLOBIN 26.1 pg (27.0-33.0); MEAN CORPUSCULAR HGB CONC 31.4 g/dl (32.0-36.5); MEAN CORPUSCULAR VOLUME 83.1 fl (80.0-96.0); MONO # 0.6 10^3/uL (0.0-0.8); MONO % 5.1 % (0.0-5.0); NEUTROPHILS # 9.7 10^3/uL (1.8-7.7); NEUTROPHILS % 78.1 % (36.0-66.0); PLATELET COUNT, AUTOMATED 265 10^3/uL (150-450); RED BLOOD COUNT 4.21 10^6/uL (4.00-5.40); RED CELL DISTRIBUTION WIDTH 15.9 % (11.5-14.5); WHITE BLOOD COUNT 12.4 10^3/uL (4.0-10.0)
[2017-09-09] MEDS: ONDANSETRON 4MG/2ML VIAL (J2405) IV (17:01)
[2017-09-09] MEDS: NS 1,000 ML IV ×2 (17:01→23:15)
[2017-09-09 17:13] LABS: ALBUMIN/GLOBULIN RATIO 0.64 (1.00-1.93); ALKALINE PHOSPHATASE 81 U/L (45-117); ALT/SGPT 16 U/L (12-78); ANION GAP 8 MEQ/L (8-16); AST/SGOT 10 U/L (7-37); BILIRUBIN,DIRECT < 0.1 MG/DL (0.0-0.2); BILIRUBIN,TOTAL 0.2 MG/DL (0.2-1.0); BLOOD UREA NITROGEN 9 MG/DL (7-18); CALCIUM LEVEL 8.8 MG/DL (8.5-10.1); CARBON DIOXIDE LEVEL 23 MEQ/L (21-32); CHLORIDE LEVEL 108 MEQ/L (98-107); CREATININE FOR GFR 0.83 MG/DL (0.55-1.30); GLOMERULAR FILTRATION RATE > 60.0 (>58); GLUCOSE, FASTING 130 MG/DL (70-100); LIPASE 112 U/L (73-393); POTASSIUM SERUM 3.6 MEQ/L (3.5-5.1); SODIUM LEVEL 139 MEQ/L (136-145); TOTAL PROTEIN 7.7 GM/DL (6.4-8.2)
[2017-09-09 17:19] LABS: LACTIC ACID SEPSIS PROTOCOL 2.2 MMOL/L (0.4-2.0)
[2017-09-09 17:55] LABS: KETONE, URINE AUTO RFX NEGATIVE (NEGATIVE); MUCUS, URINE RFX SMALL (NEGATIVE); NITRITE, URINE AUTO RFX NEGATIVE (NEGATIVE); RBC, URINE AUTO RFX 3 /HPF (0-3); SPECIFIC GRAVITY UR AUTO RFX 1.016 (1.002-1.035); SQUAM EPITHELIAL CELL UR AURFX 1 /HPF (0-6); WBC, URINE AUTO RFX 3 /HPF (0-3)
[2017-09-09 17:57] LABS: LEUKOCYTE ESTERASE UR AUTO RFX TRACE (NEGATIVE)
[2017-09-09] MEDS: cefTRIAXone SOD 1 GM in D5W MINI-BAG PLUS 50 ML IV (21:00)
[2017-09-09] MEDS ORDERED: ACETAMINOPHEN TAB 650MG DOSE (2X325MG) PO (23:15)
[2017-09-10] MEDS: PERCOCET 5MG/325MG TAB PO ×3 (01:49→18:29)
[2017-09-10] MEDS: MORPHINE 4 MG/ML 1ML VIAL/SYRINGE (J2270) IV ×9 (03:08→23:05)
[2017-09-10] MEDS: HEPARIN SOD (PORCINE) 5000 UNITS/ML VIAL SC (05:41)
[2017-09-10 05:47] LABS: BASO % 0.3 % (0.0-1.0); EOS % 0.1 % (0.0-3.0); HEMOGLOBIN 10.1 g/dl (12.0-15.5); IMMATURE GRANULOCYTE % 0.6 % (0-3.0); LYMPH # 1.6 10^3/uL (1.5-4.5); LYMPH % 11.5 % (24.0-44.0); MEAN CORPUSCULAR HEMOGLOBIN 26.1 pg (27.0-33.0); MEAN CORPUSCULAR HGB CONC 31.6 g/dl (32.0-36.5); MEAN CORPUSCULAR VOLUME 82.7 fl (80.0-96.0); MONO # 0.7 10^3/uL (0.0-0.8); MONO % 5.3 % (0.0-5.0); NEUTROPHILS # 11.4 10^3/uL (1.8-7.7); NEUTROPHILS % 82.2 % (36.0-66.0); PLATELET COUNT, AUTOMATED 242 10^3/uL (150-450); RED BLOOD COUNT 3.87 10^6/uL (4.00-5.40); RED CELL DISTRIBUTION WIDTH 15.8 % (11.5-14.5); WHITE BLOOD COUNT 13.9 10^3/uL (4.0-10.0)
[2017-09-10 06:03] LABS: ANION GAP 8 MEQ/L (8-16); BLOOD UREA NITROGEN 9 MG/DL (7-18); CALCIUM LEVEL 8.1 MG/DL (8.5-10.1); CARBON DIOXIDE LEVEL 22 MEQ/L (21-32); CHLORIDE LEVEL 110 MEQ/L (98-107); CREATININE FOR GFR 0.71 MG/DL (0.55-1.30); GLOMERULAR FILTRATION RATE > 60.0 (>58); GLUCOSE, FASTING 129 MG/DL (70-100); POTASSIUM SERUM 3.8 MEQ/L (3.5-5.1); SODIUM LEVEL 140 MEQ/L (136-145)
[2017-09-10] MEDS: LIDOCAINE 5% (LIDODERM) PATCH TD (08:46)
[2017-09-10] MEDS: PANTOPRAZOLE 40MG INJ (PROTONIX) (C9113) IV (08:46)
[2017-09-10] MEDS: MONTELUKAST 10 MG TAB PO (08:46)
[2017-09-10] MEDS: LORATADINE 10 MG TAB PO (08:46)
[2017-09-10 09:42] LABS: C REACTIVE PROTEIN QUANTITATIV 3.69 MG/DL (0.00-0.30)
[2017-09-10] MEDS: NS 1,000 ML IV ×2 (09:53→20:36)
[2017-09-10] MEDS: PRENATAL VITAMINS CHEWABLE TABLET PO (18:31)
[2017-09-10] MEDS: cefTRIAXone SOD 1 GM in D5W MINI-BAG PLUS 50 ML IV (20:32)
[2017-09-10] MEDS: **NOTE PATIENT COMMENT** MISC XX (20:41)
[2017-09-11] MEDS: MORPHINE 4 MG/ML 1ML VIAL/SYRINGE (J2270) IV ×8 (02:13→20:41)
[2017-09-11] MEDS: PERCOCET 5MG/325MG TAB PO ×4 (03:58→23:04)
[2017-09-11] MEDS: NS 1,000 ML IV (05:15)
[2017-09-11] MEDS: PRENATAL VITAMINS CHEWABLE TABLET PO (09:14)
[2017-09-11] MEDS: LORATADINE 10 MG TAB PO (09:14)
[2017-09-11] MEDS: MONTELUKAST 10 MG TAB PO (09:14)
[2017-09-11 09:15] LABS: BASO % 0.2 % (0.0-1.0); EOS # 0.1 10^3/uL (0.0-0.50); EOS % 0.8 % (0.0-3.0); HEMATOCRIT 29.3 % (36.0-47.0); HEMOGLOBIN 9.5 g/dl (12.0-15.5); IMMATURE GRANULOCYTE % 0.3 % (0-3.0); LYMPH # 1.7 10^3/uL (1.5-4.5); LYMPH % 17.7 % (24.0-44.0); MEAN CORPUSCULAR HEMOGLOBIN 26.8 pg (27.0-33.0); MEAN CORPUSCULAR HGB CONC 32.4 g/dl (32.0-36.5); MEAN CORPUSCULAR VOLUME 82.5 fl (80.0-96.0); MONO # 0.5 10^3/uL (0.0-0.8); NEUTROPHILS # 7.2 10^3/uL (1.8-7.7); PLATELET COUNT, AUTOMATED 195 10^3/uL (150-450); RED BLOOD COUNT 3.55 10^6/uL (4.00-5.40); RED CELL DISTRIBUTION WIDTH 15.9 % (11.5-14.5); WHITE BLOOD COUNT 9.5 10^3/uL (4.0-10.0)
[2017-09-11] MEDS: LIDOCAINE 5% (LIDODERM) PATCH TD (09:15)
[2017-09-11] MEDS: PANTOPRAZOLE 40MG INJ (PROTONIX) (C9113) IV (09:30)
[2017-09-11 09:34] LABS: ALBUMIN 2.4 GM/DL (3.2-5.2); ALBUMIN/GLOBULIN RATIO 0.65 (1.00-1.93); ALKALINE PHOSPHATASE 74 U/L (45-117); ALT/SGPT 13 U/L (12-78); ANION GAP 8 MEQ/L (8-16); AST/SGOT 12 U/L (7-37); BILIRUBIN,TOTAL 0.1 MG/DL (0.2-1.0); BLOOD UREA NITROGEN 5 MG/DL (7-18); CALCIUM LEVEL 7.7 MG/DL (8.5-10.1); CARBON DIOXIDE LEVEL 22 MEQ/L (21-32); CHLORIDE LEVEL 110 MEQ/L (98-107); CREATININE FOR GFR 0.64 MG/DL (0.55-1.30); GLOMERULAR FILTRATION RATE > 60.0 (>58); GLUCOSE, FASTING 103 MG/DL (70-100); POTASSIUM SERUM 3.8 MEQ/L (3.5-5.1); SODIUM LEVEL 140 MEQ/L (136-145); TOTAL PROTEIN 6.1 GM/DL (6.4-8.2)
[2017-09-11] MEDS: PIPERACILLIN/TAZOBACTAM SOD 3.375 GM in D5W MINI-BAG PLUS 50 ML IV ×3 (13:29→23:03)
[2017-09-11] MEDS: **NOTE PATIENT COMMENT** MISC XX (20:41)
[2017-09-12] MEDS: MORPHINE 4 MG/ML 1ML VIAL/SYRINGE (J2270) IV ×2 (01:23→06:26)
[2017-09-12] MEDS: PERCOCET 5MG/325MG TAB PO ×4 (03:38→20:42)
[2017-09-12] MEDS: PIPERACILLIN/TAZOBACTAM SOD 3.375 GM in D5W MINI-BAG PLUS 50 ML IV ×4 (05:07→23:36)
[2017-09-12 06:58] LABS: CORTISOL AM 8.9 UG/DL (4.3-22.4)
[2017-09-12 08:29] LABS: BASO # 0.1 10^3/uL (0.0-0.2); BASO % 0.6 % (0.0-1.0); EOS # 0.2 10^3/uL (0.0-0.50); EOS % 1.9 % (0.0-3.0); HEMATOCRIT 28.3 % (36.0-47.0); HEMOGLOBIN 9.4 g/dl (12.0-15.5); IMMATURE GRANULOCYTE % 0.3 % (0-3.0); LYMPH % 22.3 % (24.0-44.0); MEAN CORPUSCULAR HEMOGLOBIN 26.8 pg (27.0-33.0); MEAN CORPUSCULAR HGB CONC 33.2 g/dl (32.0-36.5); MEAN CORPUSCULAR VOLUME 80.6 fl (80.0-96.0); MONO # 0.6 10^3/uL (0.0-0.8); MONO % 6.3 % (0.0-5.0); NEUTROPHILS # 6.1 10^3/uL (1.8-7.7); NEUTROPHILS % 68.6 % (36.0-66.0); PLATELET COUNT, AUTOMATED 216 10^3/uL (150-450); RED BLOOD COUNT 3.51 10^6/uL (4.00-5.40); RED CELL DISTRIBUTION WIDTH 15.8 % (11.5-14.5); WHITE BLOOD COUNT 8.9 10^3/uL (4.0-10.0)
[2017-09-12] MEDS: MONTELUKAST 10 MG TAB PO (08:38)
[2017-09-12] MEDS: LORATADINE 10 MG TAB PO (08:38)
[2017-09-12] MEDS: PANTOPRAZOLE 40MG INJ (PROTONIX) (C9113) IV (08:38)
[2017-09-12] MEDS: PRENATAL VITAMINS CHEWABLE TABLET PO (08:38)
[2017-09-12] MEDS: LIDOCAINE 5% (LIDODERM) PATCH TD (08:40)
[2017-09-12 08:59] LABS: ANION GAP 8 MEQ/L (8-16); BLOOD UREA NITROGEN 8 MG/DL (7-18); CARBON DIOXIDE LEVEL 24 MEQ/L (21-32); CHLORIDE LEVEL 108 MEQ/L (98-107); CREATININE FOR GFR 0.76 MG/DL (0.55-1.30); GLOMERULAR FILTRATION RATE > 60.0 (>58); GLUCOSE, FASTING 77 MG/DL (70-100); POTASSIUM SERUM 3.8 MEQ/L (3.5-5.1); SODIUM LEVEL 140 MEQ/L (136-145)
[2017-09-12] MEDS ORDERED: SLF 3 ML SYR IV (12:30)
[2017-09-12] MEDS: SLF 3 ML SYR IV ×2 (13:24→20:24)
[2017-09-12] MEDS: **NOTE PATIENT COMMENT** MISC XX (20:24)
[2017-09-13] MEDS: PERCOCET 5MG/325MG TAB PO ×2 (03:40→18:01)
[2017-09-13 05:51] LABS: INR 1.01; PROTHROMBIN TIME 13.5 SECONDS (12.1-14.4)
[2017-09-13 05:52] LABS: PARTIAL THROMBOPLASTIN TIME 27.7 SECONDS (25.4-37.6)
[2017-09-13] MEDS: SLF 3 ML SYR IV ×3 (06:00→21:01)
[2017-09-13] MEDS: PIPERACILLIN/TAZOBACTAM SOD 3.375 GM in D5W MINI-BAG PLUS 50 ML IV ×2 (06:15→12:12)
[2017-09-13] MEDS: PANTOPRAZOLE 40MG INJ (PROTONIX) (C9113) IV (10:14)
[2017-09-13] MEDS: LORATADINE 10 MG TAB PO (10:14)
[2017-09-13] MEDS: LIDOCAINE 5% (LIDODERM) PATCH TD (10:15)
[2017-09-13] MEDS: PRENATAL VITAMINS CHEWABLE TABLET PO (10:15)
[2017-09-13] MEDS: MONTELUKAST 10 MG TAB PO (10:15)
[2017-09-13 11:10] LABS: DRVV SCREEN 54.7 SEC
[2017-09-13 11:13] LABS: PTT LUPUS TYPE ANTICOAG SCREEN 1.3 (0-1.2)
[2017-09-13 11:21] LABS: DRVV CONFIRM 40.8 SEC; LUPUS CONFIRM RATIO 1.1
[2017-09-13 11:26] LABS: NORMALIZED RATIO 1.18 (0.00-1.20)
[2017-09-13] MEDS: **NOTE PATIENT COMMENT** MISC XX (21:00)
[2017-09-14 00:14] LABS: CARDIOLIPIN IGA ANTIBODY <9 APL U/mL (0-11); CARDIOLIPIN IGG ANTIBODY <9 GPL U/mL (0-14); CARDIOLIPIN IGM ANTIBODY <9 MPL U/mL (0-12)
[2017-09-14] MEDS: PERCOCET 5MG/325MG TAB PO (03:00)
[2017-09-14] MEDS: SLF 3 ML SYR IV (05:59)
[2017-09-14 07:38] LABS: BASO % 0.2 % (0.0-1.0); EOS # 0.2 10^3/uL (0.0-0.50); EOS % 1.9 % (0.0-3.0); HEMATOCRIT 29.5 % (36.0-47.0); HEMOGLOBIN 9.6 g/dl (12.0-15.5); IMMATURE GRANULOCYTE % 0.3 % (0-3.0); LYMPH % 21.8 % (24.0-44.0); MEAN CORPUSCULAR HEMOGLOBIN 26.7 pg (27.0-33.0); MEAN CORPUSCULAR HGB CONC 32.5 g/dl (32.0-36.5); MEAN CORPUSCULAR VOLUME 82.2 fl (80.0-96.0); MONO # 0.5 10^3/uL (0.0-0.8); NEUTROPHILS # 6.5 10^3/uL (1.8-7.7); NEUTROPHILS % 70.8 % (36.0-66.0); PLATELET COUNT, AUTOMATED 213 10^3/uL (150-450); RED BLOOD COUNT 3.59 10^6/uL (4.00-5.40); RED CELL DISTRIBUTION WIDTH 15.8 % (11.5-14.5); WHITE BLOOD COUNT 9.1 10^3/uL (4.0-10.0)
[2017-09-14 08:19] LABS: ANION GAP 9 MEQ/L (8-16); BLOOD UREA NITROGEN 12 MG/DL (7-18); C REACTIVE PROTEIN QUANTITATIV 4.72 MG/DL (0.00-0.30); CALCIUM LEVEL 8.6 MG/DL (8.5-10.1); CARBON DIOXIDE LEVEL 25 MEQ/L (21-32); CHLORIDE LEVEL 107 MEQ/L (98-107); CREATININE FOR GFR 0.68 MG/DL (0.55-1.30); GLOMERULAR FILTRATION RATE > 60.0 (>58); GLUCOSE, FASTING 91 MG/DL (70-100); MAGNESIUM LEVEL 1.9 MG/DL (1.8-2.4); SODIUM LEVEL 141 MEQ/L (136-145)
[2017-09-14] MEDS: MONTELUKAST 10 MG TAB PO (09:04)
[2017-09-14] MEDS: LORATADINE 10 MG TAB PO (09:04)
[2017-09-14] MEDS: PANTOPRAZOLE 40MG INJ (PROTONIX) (C9113) IV (09:04)
[2017-09-14] MEDS: PRENATAL VITAMINS CHEWABLE TABLET PO (09:04)
[2017-09-14] MEDS: LIDOCAINE 5% (LIDODERM) PATCH TD (11:36)
== END 2017-09-14 14:50 | disposition home or self-care (01) | DRG 566 ==
LOC: M PCU 09-10 02:37 → M ED 15:01 → M ED INP 23:15 → M PED 09-13 16:43
DX: O46.91 Antepartum hemorrhage, unspecified, first trimester (principal); E27.49 Other adrenocortical insufficiency; Z3A.08 8 weeks gestation of pregnancy; O99.281 Endocrine, nutritional and metabolic diseases complicating pregnancy, first trimester; O99.511 Diseases of the respiratory system complicating pregnancy, first trimester; J45.909 Unspecified asthma, uncomplicated; O99.611 Diseases of the digestive system complicating pregnancy, first trimester; K21.9 Gastro-esophageal reflux disease without esophagitis; Z79.899 Other long term (current) drug therapy

== ENCOUNTER → 2017-10-06 | Outpatient (CLI) | payer BC, MEDICAID ==
[2017-10-06 14:19] LABS: BASO % 0.4 % (0.0-1.0); EOS # 0.2 10^3/uL (0.0-0.50); EOS % 2.1 % (0.0-3.0); HEMATOCRIT 32.7 % (36.0-47.0); HEMOGLOBIN 10.7 g/dl (12.0-15.5); IMMATURE GRANULOCYTE % 0.4 % (0-3.0); LYMPH # 1.7 10^3/uL (1.5-4.5); LYMPH % 23.8 % (24.0-44.0); MEAN CORPUSCULAR HGB CONC 32.7 g/dl (32.0-36.5); MEAN CORPUSCULAR VOLUME 82.4 fl (80.0-96.0); MONO # 0.4 10^3/uL (0.0-0.8); MONO % 5.8 % (0.0-5.0); NEUTROPHILS # 4.9 10^3/uL (1.8-7.7); NEUTROPHILS % 67.5 % (36.0-66.0); PLATELET COUNT, AUTOMATED 210 10^3/uL (150-450); RED BLOOD COUNT 3.97 10^6/uL (4.00-5.40); RED CELL DISTRIBUTION WIDTH 15.9 % (11.5-14.5); WHITE BLOOD COUNT 7.2 10^3/uL (4.0-10.0)
[2017-10-06 14:50] LABS: ALBUMIN 2.9 GM/DL (3.2-5.2); ALBUMIN/GLOBULIN RATIO 0.69 (1.00-1.93); ALKALINE PHOSPHATASE 65 U/L (45-117); ALT/SGPT 15 U/L (12-78); ANION GAP 9 MEQ/L (8-16); AST/SGOT 10 U/L (7-37); BILIRUBIN,TOTAL 0.3 MG/DL (0.2-1.0); BLOOD UREA NITROGEN 8 MG/DL (7-18); CALCIUM LEVEL 8.7 MG/DL (8.5-10.1); CARBON DIOXIDE LEVEL 25 MEQ/L (21-32); CHLORIDE LEVEL 106 MEQ/L (98-107); CREATININE FOR GFR 0.68 MG/DL (0.55-1.30); GLOMERULAR FILTRATION RATE > 60.0 (>58); GLUCOSE CHALLENGE TEST 1 HOUR 147 MG/DL (LESS THAN 140); GLUCOSE, FASTING 147 MG/DL (70-100); LDH LACTATE DEHYDROGENASE 140 U/L (84-246); POTASSIUM SERUM 3.6 MEQ/L (3.5-5.1); SODIUM LEVEL 140 MEQ/L (136-145); TOTAL PROTEIN 7.1 GM/DL (6.4-8.2); URIC ACID 3.6 MG/DL (2.6-6.0)
[2017-10-06 14:52] LABS: TOTAL PROTEIN,RANDOM URINE 840.4 MG/DL (0.0-12.0)
[2017-10-06 15:47] LABS: ESTIMATED AVERAGE GLUCOSE 103 MG/DL (60-110); HEMOGLOBIN A1c 5.2 %
[2017-10-06 16:02] LABS: CHLAMYDIA DNA AMPLIFICATION NEGATIVE (NEGATIVE); GC DNA AMPLIFICATION NEGATIVE (NEGATIVE)
[2017-10-07 09:31] LABS: RUBELLA IgG QUALITATIVE IMMUNE (IMMUNE)
[2017-10-07 09:42] LABS: HBsAg Prenatal NEGATIVE (NEGATIVE)
[2017-10-07 10:09] LABS: HEPATITIS C VIRUS ABY INDEX 0.1 INDEX (<0.8)
[2017-10-07 10:10] LABS: HIV 1&2 SCREEN CENTAUR NEGATIVE (NEGATIVE)
== END ==
LOC: M LAB 12:17
DX: Z34.81 Encounter for supervision of other normal pregnancy, first trimester (principal); Z36.89 Encounter for other specified antenatal screening; Z3A.10 10 weeks gestation of pregnancy
CPT/HCPCS: 84460

== ENCOUNTER → 2017-11-03 | Outpatient (CLI) | payer BC, MEDICAID ==
[2017-11-03 09:37] LABS: GLUCOSE, FASTING 85 MG/DL (LESS THAN 95)
[2017-11-03 13:24] LABS: 1 HR GLUCOSE 134 MG/DL (LESS THAN 180)
[2017-11-03 13:24] LABS: 2 HR GLUCOSE 105 MG/DL (LESS THAN 155)
[2017-11-03 13:24] LABS: 3 HR GLUCOSE 92 MG/DL (LESS THAN 140)
== END ==
LOC: M LAB 08:03
DX: Z36.89 Encounter for other specified antenatal screening (principal); Z3A.00 Weeks of gestation of pregnancy not specified
CPT/HCPCS: 82951

== ENCOUNTER → 2017-11-30 | Outpatient (CLI) | payer BC, MEDICAID | LOC: M RAD 08:55 | DX: Z36.89 Encounter for other specified antenatal screening (principal); Z3A.20 20 weeks gestation of pregnancy | CPT/HCPCS: 76811 ==

== ENCOUNTER 2017-12-05 03:20 | Outpatient (CLI) | payer BC, MEDICAID ==
[2017-12-05] MEDS: ACETAMINOPHEN 500 MG TAB PO ×2 (04:26)
== END 2017-12-05 05:24 | disposition home or self-care (01) ==
LOC: M LDO 03:20
DX: O26.892 Other specified pregnancy related conditions, second trimester (principal); R10.30 Lower abdominal pain, unspecified; Z3A.20 20 weeks gestation of pregnancy
CPT/HCPCS: 76815

== ENCOUNTER → 2017-12-06 | Outpatient (CLI) | payer BC, MEDICAID | LOC: M SMT 11:22 | DX: A63.0 Anogenital (venereal) warts (principal) | CPT/HCPCS: 36415 ==

== ENCOUNTER → 2017-12-19 | Outpatient (REF) | payer BC, MEDICAID | LOC: M LAB REF 13:24 | DX: A51.31 Condyloma latum (principal) | CPT/HCPCS: 88305 ==

== ENCOUNTER → 2018-01-13 | Outpatient (CLI) | payer BC, MEDICAID | LOC: M RAD 14:55 | DX: Z34.83 Encounter for supervision of other normal pregnancy, third trimester (principal); Z3A.27 27 weeks gestation of pregnancy | CPT/HCPCS: 76816 ==

== ENCOUNTER → 2018-01-24 | Outpatient (CLI) | payer BC, MEDICAID ==
[~2018-01-24] MED LIST changes: +CARA1TAB6 PO; +LIDO5TD TD; +LORA-243 PO; -LORA10TA2 PO; +MACR100C43 PO; +NORCOTAB PO; +OMEP40CA2 PO; +PERCOCET PO; +PRENTAB9 PO; +RANI150T PO; +RANI15TA PO; +SUCR1TAB56 PO; +TOPA1TAB PO; +ZOFR4TAB14 PO
[2018-01-24 19:14] LABS: ALBUMIN 2.7 GM/DL (3.2-5.2); ALT/SGPT 22 U/L (12-78); BILIRUBIN,TOTAL 0.3 MG/DL (0.2-1.0); BLOOD UREA NITROGEN 6 MG/DL (7-18); CALCIUM LEVEL 8.3 MG/DL (8.5-10.1); CARBON DIOXIDE LEVEL 23 MEQ/L (21-32); CHLORIDE LEVEL 109 MEQ/L (98-107); CREATININE FOR GFR 0.56 MG/DL (0.55-1.30); GLOMERULAR FILTRATION RATE > 60.0 (>58); GLUCOSE, FASTING 77 MG/DL (70-100); SODIUM LEVEL 142 MEQ/L (136-145); TOTAL PROTEIN 6.5 GM/DL (6.4-8.2)
== END ==
LOC: M SMT 11:06
PROVIDERS: ATTEND Obstetrics & Gynecology
DX: Z36.89 Encounter for other specified antenatal screening (principal)

== ENCOUNTER → 2018-02-03 | Outpatient (CLI) | payer BC, MEDICAID ==
[2018-02-03 08:49] LABS: HEMATOCRIT 31.3 % (36.0-47.0); HEMOGLOBIN 10.6 g/dl (12.0-15.5); MEAN CORPUSCULAR HEMOGLOBIN 30.5 pg (27.0-33.0); MEAN CORPUSCULAR HGB CONC 33.9 g/dl (32.0-36.5); MEAN CORPUSCULAR VOLUME 89.9 fl (80.0-96.0); PLATELET COUNT, AUTOMATED 182 10^3/uL (150-450); RED BLOOD COUNT 3.48 10^6/uL (4.00-5.40); WHITE BLOOD COUNT 8.9 10^3/uL (4.0-10.0)
== END ==
LOC: M LAB 07:52
PROVIDERS: ATTEND Advanced Practice Midwife
DX: Z36.89 Encounter for other specified antenatal screening (principal); O10.012 Pre-existing essential hypertension complicating pregnancy, second trimester; Z3A.00 Weeks of gestation of pregnancy not specified

== ENCOUNTER → 2018-02-08 | Outpatient (CLI) | payer BC, MEDICAID ==
--- NOTE | 2018-02-08 08:22 | REP ---
Clinical: 30 weeks with right upper quadrant pain. Technique: Real time samayoa scale ultrasound examination using curved array transducer. Findings: Liver and pancreas are normal in contour, size, echogenicity without focal hepatic or pancreatic lesions identified. The patient gives a history of prior cholecystectomy and there appears to be a dilated cystic duct remnant to the gallbladder fossa. There is no evidence for biliary ductal dilatation and the common bile duct measures 5.4 mm diameter. The right kidney is normal in reniform shape without hydronephrosis and measures 16.3 x 6.1 x 5.1 cm. No ascites. Fetus identified. heart rate equals 144 beats per minute. Impression: No obvious acute pathology. Electronically Signed by Marlon Fregoso MD 02/08/2018 08:14 A
== END ==
LOC: M RAD 06:42
PROVIDERS: ATTEND Advanced Practice Midwife
DX: R10.11 Right upper quadrant pain (principal)

== ENCOUNTER 2018-02-21 19:21 | Outpatient (CLI) | payer BC, MEDICAID ==
[~2018-02-21] VITALS: Ht 167.6 cm; Wt 102.4 kg
[2018-02-21 19:52] VITALS: BP 147/84
[2018-02-21] MEDS ORDERED: LR 1,000 ML IV SCH (19:55)
[2018-02-21] MEDS ORDERED: PRENTAB9 PO (20:00)
[2018-02-21 20:54] LABS: BASO % 0.3 % (0.0-1.0); EOS # 0.2 10^3/uL (0.0-0.50); EOS % 1.8 % (0.0-3.0); HEMATOCRIT 29.9 % (36.0-47.0); HEMOGLOBIN 10.2 g/dl (12.0-15.5); LYMPH # 2.1 10^3/uL (1.5-4.5); LYMPH % 20.6 % (24.0-44.0); MEAN CORPUSCULAR HEMOGLOBIN 30.1 pg (27.0-33.0); MEAN CORPUSCULAR HGB CONC 34.1 g/dl (32.0-36.5); MEAN CORPUSCULAR VOLUME 88.2 fl (80.0-96.0); MONO # 0.6 10^3/uL (0.0-0.8); MONO % 5.8 % (0.0-5.0); NEUTROPHILS # 7.3 10^3/uL (1.8-7.7); NEUTROPHILS % 70.6 % (36.0-66.0); PLATELET COUNT, AUTOMATED 180 10^3/uL (150-450); RED BLOOD COUNT 3.39 10^6/uL (4.00-5.40); WHITE BLOOD COUNT 10.3 10^3/uL (4.0-10.0)
[2018-02-21 21:12] LABS: AMPHETAMINES URINE REFLEX NEGATIVE (NEGATIVE); BARBITURATES URINE REFLEX NEGATIVE (NEGATIVE); BENZODIAZEPINES URINE REFLEX NEGATIVE (NEGATIVE); CANNABINOIDS URINE REFLEX NEGATIVE (NEGATIVE); COCAINE METABOLITE URINE REFLE NEGATIVE (NEGATIVE); METHADONE URINE REFLEX NEGATIVE (NEGATIVE); OPIATES URINE REFLEX NEGATIVE (NEGATIVE); PHENCYCLIDINE URINE REFLEX NEGATIVE (NEGATIVE); TOTAL PROTEIN,RANDOM URINE 94.9 MG/DL (0.0-12.0)
[2018-02-21 21:14] LABS: ALT/SGPT 22 U/L (12-78); BILIRUBIN,TOTAL 0.2 MG/DL (0.2-1.0); CREATININE FOR GFR 0.48 MG/DL (0.55-1.30); GLOMERULAR FILTRATION RATE > 60.0 (>58); LDH LACTATE DEHYDROGENASE 128 U/L (84-246); URIC ACID 3.8 MG/DL (2.6-6.0)
[2018-02-21 21:45] VITALS: BP 144/72
--- NOTE | 2018-02-21 22:05 | HPE ---
DATE OF ADMISSION: 02/21/2018 A 42-year-old G3, P2 female at 31-6/7 weeks gestation by last menstrual period (LMP) consistent with 8-week ultrasound, estimated date of confinement (EDC) 04/20/2018, presents after gush of blood per vagina at 7:30 p.m. on the evening of admission while taking a bath. She denies any trauma or recent intercourse. She had a subsequent large gush of blood, where it came running out and down her leg. She had mild cramping. She came to the emergency room with a pad on. Pad showed a moderate amount of blood staining. COURSE: Patient initiated care at 10 weeks gestation, 09/26/2017. Her first trimester blood pressure was 140/86. She has a history of chronic hypertension and did not require medications thus far in the . She had a normal panorama test for genetics. OBSTETRIC HISTORY: 1. March 1996, a 42-week vaginal delivery of a 7-pound 12-ounce male . 2. July 1998, a 42-week vaginal delivery of a 6-pound 12-ounce female . MEDICAL HISTORY: 1. Chronic hypertension. 2. Mild asthma. No current medications. SURGICAL HISTORY: January 2016 she had a right salpingo-oophorectomy for a dermoid as well as a laparoscopic myomectomy. ALLERGIES: None. SOCIAL HISTORY: Patient denies cigarettes, alcohol, or drug use. She lives in [place]. FAMILY HISTORY: Noncontributory. PHYSICAL EXAMINATION: Blood pressure is 147/84, temperature 97.6, pulse 83. She is in No apparent distress. HEAD AND NECK: Normal. LUNGS: Clear. HEART: Regular rate and rhythm. ABDOMEN: Nontender, gravid. heart tones category 1. Sterile vaginal exam: Cervix fingertip long, firm, nontender. Small amount of blood in the vagina. No active bleeding. EXTREMITIES: Nontender. LABORATORY DATA: Blood type O positive, rubella immune, RPR nonreactive. Hepatitis B and C negative, HIV negative. ASSESSMENT: A 42-year-old G3, P2 female at 31-6/7 weeks gestation presents with bleeding, suggesting possible placental abruption. PLAN: Check labs and observe for an extended period. Will check pelvic ultrasound to assess for placental abruption.
--- NOTE | 2018-02-21 22:29 | REPVR ---
EXAM: US After First Trimester, Transabdominal EXAM DATE/TIME: 02/21/2018 9:35 PM CLINICAL HISTORY: 42 years old, female; Signs and symptoms; Lmp or gestational age (in weeks): 32 w; Antepartum complications; Bleeding; ; Additional info: 32 weeks, bleeding, suspect abruption TECHNIQUE: Real-time transabdominal obstetrical ultrasound of the maternal pelvis and a second or third trimester with image documentation. COMPARISON: US OBS FOLL UP OR REPEAT EACH GES 01/13/2018 3:09 PM FINDINGS: GESTATION: Gestation: Single intrauterine fetus. Heart rate: heartbeat of 139 beats per minute. Presentation: Cephalic presentation. Placenta: Anterior placenta with no previa or abruption. Amniotic fluid: Normal COLE of 13.9 cm. Anatomy: The kidneys, bladder, stomach, cranial structures, cord, spine and 4 chamber heart are normal. BIOMETRY: Estimated gestational age: The composite gestational age by ultrasound is 33 weeks 1 day. Estimated due date: The EDC is 04/10/2018. There has been adequate interval growth since 01/13/2018. Estimated weight: The estimated weight is 2159 grams and is 48 %. Biparietal diameter: The BPD measures 8.2 cm suggesting an age of 32 weeks 6 days. Head circumference: The head circumference measures 30.0 cm suggesting an age of 33 weeks 1 day. Abdominal circumference: The abdominal circumference measures 29.4 cm suggesting an age of 33 weeks 3 days. Femur length: The femur length measures 6.4 cm suggesting an age of 33 weeks 2 days. MATERNAL: Uterus: Unremarkable. Cervix: The cervix is closed and measures 3.8 cm. IMPRESSION: 1. Single live intrauterine fetus in cephalic presentation with a composite age of 33 weeks 1 day. The EDC is 04/10/2018 with adequate interval growth since 01/13/2018. 2. Normal COLE of 13.9 cm. 3. Anterior placenta without previa or abruption. Electronically signed by: Jarod Bryant On 02/21/2018 22:28:59 PM
== END 2018-02-22 00:38 | disposition home or self-care (01) ==
LOC: M LDO 19:21
PROVIDERS: ATTEND Specialist
DX: O47.9 False labor, unspecified (principal); Z3A.31 31 weeks gestation of pregnancy; O16.3 Unspecified maternal hypertension, third trimester; O99.513 Diseases of the respiratory system complicating pregnancy, third trimester; J45.909 Unspecified asthma, uncomplicated
CPT/HCPCS: 36415; 59025; 76816; 76820; 80307; 82247; 82565; 82570; 83615; 84156; 84450; 84460; 84550; 85025; G0378; G0463

== ENCOUNTER → 2018-03-15 | Outpatient (CLI) | payer BC, MEDICAID ==
[~2018-03-15] MED LIST changes: +LABE10TAB PO
--- NOTE | 2018-03-16 07:32 | REP ---
Clinical: Growth evaluation. Comparison: 02/21/2018 . Findings: Examination demonstrates a single live intrauterine in cephalic presentation. motion is identified by technologist. Placenta is noted anterior and grade II without evidence for placenta previa or abruption. Amniotic fluid volume is normal. Cervix measures 3.6 cm in length and appears closed. Nuchal cord cannot be excluded. Gestational age by LMP 35 weeks 0 days with ELIE 04/19/2018 . Gestational age by current measurements 35 weeks 0 days with ELIE 04/19/2018 . FHR equals 124 beats per minute. BPD 8.7 cm 35 weeks 1 day HC 31.5 cm 35 weeks 2 days AC 31.1 cm 35 weeks 0 days FL 6.8 cm 35 weeks 0 days HL 6.0 cm 34 weeks 4 days HC/AC ratio 1.01 Estimated weight 2586 grams (49th percentile). Amniotic fluid index: 16.7 cm (7.9 - 24.9) Umbilical cord SD ratio: 2.20 (2.00 - 3.00). Limited anatomical assessment demonstrates mild renal pelviectasis up to 4.2 mm within normal range for age. Impression: Single live advanced gestation in cephalic presentation demonstrating appropriate interval growth. Nuchal cord cannot be excluded. Mild renal pelviectasis within normal range for age. Electronically Signed by Marlon Fregoso MD 03/15/2018 03:35 P
== END ==
LOC: M RAD 14:09
PROVIDERS: ATTEND Specialist
DX: O10.013 Pre-existing essential hypertension complicating pregnancy, third trimester (principal); Z3A.35 35 weeks gestation of pregnancy

== ENCOUNTER → 2018-03-16 | Outpatient (REF) | payer BC, MEDICAID | LOC: M LAB REF 16:45 | PROVIDERS: ATTEND Obstetrics & Gynecology | DX: O09.523 Supervision of elderly multigravida, third trimester (principal) ==

== ENCOUNTER 2018-03-26 05:56 | Emergency (ER) | payer BC, MEDICAID ==
[~2018-03-26] VITALS: Ht 167.6 cm; Wt 105.9 kg
[2018-03-26] MEDS ORDERED: ACETAMINOPHEN 325 MG TAB PO ONE (06:30)
[2018-03-26 07:31] LABS: INFLUENZA A AMPLIFICATION POSITIVE (NEGATIVE); INFLUENZA B AMPLIFICATION NEGATIVE (NEGATIVE)
[2018-03-26] MEDS ORDERED: OSEL75CA PO (08:05)
[2018-03-26 08:30] VITALS: BP 132/72
== END 2018-03-26 08:33 | disposition home or self-care (01) ==
LOC: M ED 05:56
DX: O99.513 Diseases of the respiratory system complicating pregnancy, third trimester (principal); J09.X2 Influenza due to identified novel influenza A virus with other respiratory manifestations; J45.909 Unspecified asthma, uncomplicated; O16.3 Unspecified maternal hypertension, third trimester; O99.613 Diseases of the digestive system complicating pregnancy, third trimester; K21.9 Gastro-esophageal reflux disease without esophagitis; Z3A.36 36 weeks gestation of pregnancy; Z87.891 Personal history of nicotine dependence; Z98.890 Other specified postprocedural states

== ENCOUNTER 2018-03-30 04:57 | Inpatient (IN) | payer BC, MEDICAID ==
[2018-03-30] VITALS (11 sets, daily range): BP systolic 128–167; BP diastolic 62–103
[~2018-03-30] VITALS: Ht 167.6 cm; Wt 105.7 kg
[~2018-03-30 04:57] MED LIST changes: +OSEL75CA PO
[2018-03-30] MEDS ORDERED: LR 1,000 ML IV SCH ×2 (05:30→09:30)
[2018-03-30] MEDS ORDERED: BICITRA 30ML SOLN UDC PO ONE (05:30)
[2018-03-30] MEDS ORDERED: LR 1,000 ML IV ONE (05:30)
[2018-03-30 06:12] LABS: HEMATOCRIT 34.5 % (36.0-47.0); HEMOGLOBIN 11.7 g/dl (12.0-15.5); MEAN CORPUSCULAR HEMOGLOBIN 30.5 pg (27.0-33.0); MEAN CORPUSCULAR HGB CONC 33.9 g/dl (32.0-36.5); MEAN CORPUSCULAR VOLUME 89.8 fl (80.0-96.0); PLATELET COUNT, AUTOMATED 159 10^3/uL (150-450); RED BLOOD COUNT 3.84 10^6/uL (4.00-5.40); WHITE BLOOD COUNT 6.8 10^3/uL (4.0-10.0)
[2018-03-30] MEDS ORDERED: MAPA500T2 PO (06:40)
[2018-03-30] MEDS ORDERED: LACTATED RINGER'S 1000 ML IV STA (07:27)
[2018-03-30] MEDS ORDERED: MORPHINE PRES-FREE INJ 10 MG/10 ML VIAL (J2274) As Ordered ONE (07:36)
[2018-03-30] MEDS ORDERED: diphenhydrAMINE INJ 50MG/ML VIAL (J1200) IV PRN (07:45)
[2018-03-30] MEDS ORDERED: ONDANSETRON 4MG/2ML VIAL (J2405) IV PRN ×3 (07:45→09:30)
[2018-03-30] MEDS ORDERED: NALOXONE INJ 0.4 MG/1 ML VIAL (J2310) IV PRN ×2 (07:45)
[2018-03-30] MEDS ORDERED: NALBUPHINE HCL 10 MG/ML AMP (J2300) IV PRN (07:45)
[2018-03-30] MEDS: PRENATAL VITAMINS CHEWABLE TABLET PO SCH (09:00)
[2018-03-30] MEDS ORDERED: OXYTOCIN DRIP 30 UNITS in APPROPRIATE DILUENT 1 EA IV SCH (09:03)
[2018-03-30] MEDS ORDERED: RHOGAM 300 MCG (1500 IU) INJ (J2790) IM SCH (09:15)
[2018-03-30] MEDS ORDERED: PROMETHAZINE 25 MG TAB PO PRN (09:15)
[2018-03-30] MEDS ORDERED: PERCOCET 5MG/325MG TAB PO PRN ×2 (09:15→09:30)
[2018-03-30] MEDS ORDERED: MEASLES,MUMPS,RUBELLA VACCINE INJ (MMR-II) (90707) SC SCH (09:15)
--- NOTE | 2018-03-30 09:19 | NUR ---
Operative Note Date of procedure: 03/30/2018 Procedure:, Primary low-transverse section with [place] left sided tubal ligation (right fallopian tube and ovary are surgically absent) Anesthesia: Spinal with Duramorph Preoperative diagnoses: 37+0 weeks gestation History of myomectomy Chronic hypertension Advanced maternal age Satisfied parity Postoperative diagnoses: Same as preoperative Indication: 37 weeks gestation, history of myomectomy, satisfied parity. Primary surgeon: Gian Houston D.O., Olive Ferrer Half Section Ironer: Inder Child CNM (essential role in surgical site exposure and assistance with delivery of baby through hysterotomy) Estimated blood loss: 600 ml IV fluids administered: 2100 ml crystalloid Drains: Lau catheter. Urine output: 25 ml [place] data: Apgars 8 and 9. Birthweight, 3270 g 7 lbs. 3 oz. Male. Preoperative/prophylactic antibiotics: Ancef 2 g IV (given within 30 minutes prior to surgical start time). Intraoperative findings: Low level of intraperitoneal adhesive disease, filmy adhesions to the uterine fundus posteriorly, surgically absent right ovary and fallopian tube. Right adnexal adhesions. Normal left ovary and fallopian tube. Cephalic presentation. Specimen(s): Segment of left fallopian tube Procedure: The patient was counseled and consented on the risks, benefits, indications and alternatives of the procedure. Informed consent was obtained and placed in the c beal. She was taken to the operating room with an IV running. She was placed on the operating table. Spinal anesthesia was administered without any difficulty and found to be adequate. She was placed in the dorsal supine position with a leftward tilt. Sequential compression devices were placed on the lower extremities. A Lau catheter was placed under sterile conditions. She was sterilely prepped and draped. A surgical timeout was performed per protocol. Spinal anesthesia was again found to be adequate. Using the 10 blade a Pfannenstiel incision was performed. The 10 blade was used to dissect down to the level of the rectus sheath fascia. The rectus sheath fas donnie was incised at the midline, and the fascial incision was extended with Aburto scissors. Roma clamps were used to grasp the superior and inferior aspect of the fascial incision and the rectus muscle bellies were dissected off sharply and bluntly. The midline was identified and the rectus muscle bellies were manually . The peritoneum was identified and clamped with hemostats and elevated. The peritoneum was then incised with Metzenbaum scissors. Entry into the intraperitoneal cavity was achieved. The peritoneal opening was extended with manual stretch . There was good visualization of both the bladder and the lower uterine segment. The bladder retractor was placed. The vesicouterine peritoneum was dissected with Metzenbaum scissors and blunt dissection. Bladder retractor was repositioned. A low transverse uterine incision was made with a new 10 blade. The hysterotomy was extended with manual stretch. The amniotic sac was protruding and then artificially ruptured. Clear amniotic fluid was noted. The baby's head delivered through the hysterotomy with ease. The remainder of the body delivered with ease. The cord was doubly clamped and cut and the baby was handed off to awaiting care. See data above. Cord blood was obtained . The placenta was manually removed and noted to be fully intact. The uterus was exteriorized. The intrauterine cavity was cleared of all clot and debris with a laparotomy sponge. The hysterotomy was closed with 0 Vicryl in running, locked fashion. A second imbricating closure was performed over the initial layer closure using 0 Vicryl. The hysterotomy was noted to be hemostatic. The posterior cul-de-sac was irrigated and cleared of all clot and debris. Attention was turned to performing the [place] left-sided tubal ligation. The left fallopian tube was followed out to fimbriated end. The mid isthmic portion was grasped with the [place] and elevated. A window was created within the underlying broad ligament with the Bovie. Plain gut suture was used to tie the 2 ends, and the intervening segment was excised with Metzenbaum scissors. The entire right adnexa was examined and no fallopian tube was evident, only adhesive disease. Both adnexa were noted to be hemostatic. The uterus was replaced back into the abdomen. The paracolic gutters were cleared of all clot and debris with damp laparotomy sponges. The hysterotomy is reinspected and noted to be hemostatic. The adnexa were reinspected and noted to be hemostatic. Sponge, needle and instrument counts were correct. The peritoneum was closed with 3-0 Vicryl in running fashion. The rectus muscle bellies were noted to be hemostatic. The fascia was closed with 0 Vicryl in runn ing fashion. Sponge, needle and instrument counts were again correct. The subcutaneous layer was irrigated. Small subcutaneous bleeders were cauterized with Bovie. The subcutaneous layer was reapproximated with 3-0 Vicryl in running fashion. The skin was closed with 3-0 Monocryl in subcuticular fashion. A bandage was placed over the closed incision. The final sponge, instrument and needle count was correct. She tolerated the entire procedure very well. She was transferred to the PACU in good and stable condition. Dr. Gian Houston D.O., F.A.C.O.G
[2018-03-30] MEDS ORDERED: METOCLOPRAMIDE INJ 10MG/2ML VIAL (J2765) IV PRN (09:30)
[2018-03-30] MEDS ORDERED: fentaNYL 100 MCG/2 ML INJECTION (J3010) IV PRN (09:30)
[2018-03-30] MEDS ORDERED: MEPERIDINE INJ 25 MG/ML VIAL (J2175) IV PRN (09:30)
[2018-03-30] MEDS ORDERED: OXYTOCIN 30 UNITS IN 0.9% NaCl 500ML IV BAG (J2590) As Ordered ONE (09:35)
[2018-03-30] MEDS ORDERED: ONDANSETRON 4MG/2ML VIAL (J2405) As Ordered ONE (10:18)
[2018-03-30] MEDS ORDERED: KETOROLAC 30 MG/ML VIAL (J1885) IV SCH (11:00)
[2018-03-30] MEDS: METOCLOPRAMIDE INJ 10MG/2ML VIAL (J2765) IV PRN ×2 (11:05→16:35)
[2018-03-30] MEDS: LABETALOL 200 MG TAB PO SCH ×2 (12:11→20:55)
[2018-03-30] MEDS: KETOROLAC 30 MG/ML VIAL (J1885) IV SCH ×2 (14:55→20:56)
[2018-03-30] MEDS: LR 1,000 ML IV SCH ×2 (14:55→19:17)
[2018-03-30] MEDS ORDERED: LR 500 ML IV ONE (18:45)
[2018-03-30] MEDS: DOCUSATE SODIUM 100 MG CAP PO SCH (20:56)
[2018-03-31 02:00] VITALS: BP 116/69
[2018-03-31] MEDS: LR 1,000 ML IV SCH ×2 (02:33→09:04)
[2018-03-31] MEDS: KETOROLAC 30 MG/ML VIAL (J1885) IV SCH (03:02)
[2018-03-31 06:00] VITALS: BP 145/77
[2018-03-31 06:41] LABS: HEMATOCRIT 27.2 % (36.0-47.0); HEMOGLOBIN 9.3 g/dl (12.0-15.5); MEAN CORPUSCULAR HEMOGLOBIN 31.3 pg (27.0-33.0); MEAN CORPUSCULAR HGB CONC 34.2 g/dl (32.0-36.5); MEAN CORPUSCULAR VOLUME 91.6 fl (80.0-96.0); PLATELET COUNT, AUTOMATED 105 10^3/uL (150-450); RED BLOOD COUNT 2.97 10^6/uL (4.00-5.40); WHITE BLOOD COUNT 9.7 10^3/uL (4.0-10.0)
--- NOTE | 2018-03-31 06:57 | NUR ---
Postoperative Day 1 Status post primary low transverse section with [place] tubal ligation on left side (right side surgically absent), uncomplicated. Subjective Pain is well controlled. Lochia is decreasing and minimal. Lau removed overnight; no sensation to urinate yet. Tolerating a regular diet. Immediate postop nausea but this has resolved. Ambulating without any assistance. Denies any subjective fever, chills, nausea, vomiting, headache, visual changes, shortness of breath, chest pain. Bottle feeding. Objective Vitals: Normotensive/mild HTN, normal heart rate, afebrile, adequate urine output. Heart: regular, rate, and rhythm. no murmurs/gallops/rubs Lungs: clear to auscultation bilaterally, no wheezes/crackles/rales/ronchi Abd: soft, nontender, nondistended, uterine fundus is 2cm below umbilicus and firm Incision: clean, dry, intact Ext: no significant edema, nontender, negative Praveen's bilaterally. Preoperative H/H: 11.7/34.5 Postoperative H/H: 9.3/27.2 Assessment/Plan: Postoperative day 1 status post primary low transverse section/tubal ligation. Recovering well. Hemodynamically stable, afebrile, good pain control. -Routine care/postop advancement. -Discharge to home tomorrow. -Routine infectious, fever, pain, and bleeding precautions reviewed -Incision/wound care precautions reviewed. Dr. Gian Houston D.O., F.A.C.O.G.
[2018-03-31] MEDS ORDERED: PERCOCET PO (08:05)
[2018-03-31] MEDS ORDERED: IBUP80TA PO (08:08)
[2018-03-31] MEDS ORDERED: ONDA4TAB6 PO (08:08)
[2018-03-31] MEDS ORDERED: COLA100C5 PO (08:09)
[2018-03-31] MEDS: DOCUSATE SODIUM 100 MG CAP PO SCH ×2 (09:03→20:33)
[2018-03-31] MEDS: LABETALOL 200 MG TAB PO SCH ×2 (09:04→20:38)
[2018-03-31] MEDS: PRENATAL VITAMINS CHEWABLE TABLET PO SCH (09:04)
[2018-03-31] MEDS: IBUPROFEN 800 MG TAB PO SCH ×2 (10:45→18:31)
[2018-03-31] MEDS: PERCOCET 5MG/325MG TAB PO PRN (12:09)
[2018-03-31] MEDS ORDERED: IBUPROFEN 800 MG TAB PO SCH (13:00)
[2018-03-31 18:00] VITALS: BP 152/84
[2018-03-31 22:00] VITALS: BP 122/58
[2018-04-01 02:00] VITALS: BP 128/60
[2018-04-01] MEDS: IBUPROFEN 800 MG TAB PO SCH ×2 (02:28→11:09)
[2018-04-01 06:00] VITALS: BP 160/81
[2018-04-01] MEDS: PERCOCET 5MG/325MG TAB PO PRN (06:43)
--- NOTE | 2018-04-01 07:21 | DS.PDOC ---
Discharge Summary General Date of Admission Mar 30, 2018 at 04:57 Date of Discharge 04/01/18 Discharge Summary PROCEDURES PERFORMED DURING STAY: section and bilateral tubal ligation. ADMITTING DIAGNOSES: 1. Previous myomectomy. 2. Chronic hypertension DISCHARGE DIAGNOSES: 1. section with bilateral tubal ligation. 2. Chronic hypertension COMPLICATIONS/CHIEF COMPLAINT: Previous Myomectomy Surgery. HISTORY OF PRESENT ILLNESS: G3 now P3 admitted 03/30/18 for primary due to hx myomectomy. complicated by chronic hypertension treated wtih labetalol during the . HOSPITAL COURSE: Feeling well. Tolerating out of bed activity with oral medications. Voiding, tolerating regular diet. . Pt currently has the flu. DISCHARGE MEDICATIONS: Please see below. ALLERGIES: Please see below. PHYSICAL EXAMINATION ON DISCHARGE: VITAL SIGNS: Please see below. GENERAL: NAD HEENT: WNL NECK: Supple CARDIOVASCULAR EXAMINATION: BP Stable with oral medications RESPIRATORY EXAMINATION: Clear and unlabored ABDOMINAL EXAMINATION: Fundus firm. Dressing intact with old drainage EXTREMITIES: Equal strength and motion SKIN: Intact NEUROLOGICAL EXAMINATION: Grossly intact PSYCHIATRIC EXAMINATION: Appropriate LABORATORY DATA: Please see below. PROGNOSIS: Good ACTIVITY: As tolerated. DIET: Regular as tolerated DISCHARGE PLAN: Home DISCHARGE INSTRUCTIONS: 1. Routine precautions. Continue labetalol, PNV. Ibuprofen and percocet for pain management. Pelvic rest. Remove dressing at 5 days. Return to office 2 wks and 6 wks DISCHARGE CONDITION: Stable. Vital Signs/I&Os Vital Signs Date Time Temp Pulse Resp B/P (MAP) Pulse Ox O2 Delivery O2 Flow Rate FiO2 04/01/18 06:43 18 04/01/18 06:00 97.8 75 160/81 (107) 98 I&O- Last 24 Hours up to 6 AM 04/01/18 06:00 Intake Total 300 ml Output Total 250 ml Balance 50 ml Discharge Medications Scheduled Docusate Sodium (Colace) 100 Mg Cap, 1 CAP PO BID Ibuprofen (Ibuprofen) 800 Mg Tab, 800 MG PO TID for pain Labetalol HCl (Labetalol HCl) 100 Mg Tab, 100 MG PO BID, (Reported) Multivitamins/ ( 27-0.8 mg) 1 Tab Tab, 1 TAB PO DAILY, (Reported) Oseltamivir Phosphate (Tamiflu) 75 Mg Cap, 1 CAP PO BID Scheduled PRN Acetaminophen (Mapap) 500 Mg Tab, 1,000 MG PO Q6HP PRN for HEADACHE, (Reported) Ondansetron (Ondansetron Odt) 4 Mg Tab, 4 MG PO Q6-8HP PRN for nausea/vomiting Oxycodone/Acetaminophen (Percocet 5MG/325MG Tablet) 1 Tab Tab, 1 TAB PO QIDP PRN for pain Allergies Coded Allergies: No Known Allergies (Unverified , 02/21/18) Latisha Bonilla CNM Apr 01, 2018 07:21
[2018-04-01 08:00] VITALS: BP 140/67
[2018-04-01] MEDS ORDERED: [UNRECOGNIZED DRUG - OTHER] PO (08:22)
[2018-04-01] MEDS: PRENATAL VITAMINS CHEWABLE TABLET PO SCH (09:11)
[2018-04-01 09:12] VITALS: BP 140/67
[2018-04-01] MEDS: DOCUSATE SODIUM 100 MG CAP PO SCH (09:12)
[2018-04-01] MEDS: LABETALOL 200 MG TAB PO SCH (09:12)
== END 2018-04-01 12:20 | disposition home or self-care (01) | DRG 540 ==
LOC: M LDI 04:57 → M OBS 10:28
PROVIDERS: ADMIT Obstetrics & Gynecology; ATTEND Obstetrics & Gynecology
PROC: 0UB60ZZ Excision of Left Fallopian Tube, Open Approach (ICD-10-PCS; 2018-03-30)
PROC: 10D00Z1 Extraction of Products of Conception, Low, Open Approach (ICD-10-PCS; principal; 2018-03-30 07:30)
DX: O34.83 Maternal care for other abnormalities of pelvic organs, third trimester (principal); O10.02 Pre-existing essential hypertension complicating childbirth; Z3A.37 37 weeks gestation of pregnancy; Z37.0 Single live birth; Z30.2 Encounter for sterilization; Z90.721 Acquired absence of ovaries, unilateral; Z90.79 Acquired absence of other genital organ(s)

== ENCOUNTER 2018-04-03 17:48 | Inpatient (IN) | payer BC, MEDICAID ==
[~2018-04-03] VITALS: Ht 167.6 cm; Wt 95.5 kg
[~2018-04-03 17:48] MED LIST changes: +COLA100C5 PO; +IBUP80TA PO; +MAPA500T2 PO; +ONDA4TAB6 PO; +[UNRECOGNIZED DRUG - OTHER] PO
[2018-04-03 18:23] LABS: BASO % 0.3 % (0.0-1.0); EOS # 0.3 10^3/uL (0.0-0.50); EOS % 2.5 % (0.0-3.0); HEMATOCRIT 33.6 % (36.0-47.0); HEMOGLOBIN 11.4 g/dl (12.0-15.5); LYMPH # 1.5 10^3/uL (1.5-4.5); LYMPH % 14.6 % (24.0-44.0); MEAN CORPUSCULAR HEMOGLOBIN 30.7 pg (27.0-33.0); MEAN CORPUSCULAR HGB CONC 33.9 g/dl (32.0-36.5); MEAN CORPUSCULAR VOLUME 90.6 fl (80.0-96.0); MONO # 0.5 10^3/uL (0.0-0.8); MONO % 4.5 % (0.0-5.0); NEUTROPHILS % 76.2 % (36.0-66.0); PLATELET COUNT, AUTOMATED 235 10^3/uL (150-450); RED BLOOD COUNT 3.71 10^6/uL (4.00-5.40); WHITE BLOOD COUNT 10.5 10^3/uL (4.0-10.0)
[2018-04-03 18:33] LABS: ABG HCO3 20.4 MEQ/L (22.0-26.0); ABG O2 SATURATION 97.5 % (95.0-99.0); ABG PARTIAL PRESSURE CO2 24.8 mmHg (35.0-45.0); ABG PARTIAL PRESSURE O2 86.8 mmHg (75.0-100.0); ABG STANDARD HCO3 23.7 MEQ/L (22.0-26.0); ABG TOTAL CO2 21.2 MEQ/L (22.0-29.0); ABG pH (ARTERIAL) 7.534 UNITS (7.350-7.450)
--- NOTE | 2018-04-03 18:42 | REP ---
Chest one-view HISTORY: Cough Comparison: 04/22/2017 Patchy density is present in the right upper and lower lobes consistent with an infiltrate. The left lung is clear. The heart is normal in size. The pulmonary vasculature is normal in appearance. Impression: Right upper and lower lobe infiltrate. Electronically Signed by Edgar Griffiths MD 04/03/2018 06:34 P
[2018-04-03] MEDS ORDERED: AZITHROMYCIN INJ 500 MG, VIAL MATE ADAPTER 1 EACH in D5W 250 ML IV ONE (18:45)
[2018-04-03] MEDS ORDERED: cefTRIAXone SOD 2 GM in D5W MINI-BAG PLUS 50 ML IV ONE (18:45)
[2018-04-03 18:56] LABS: BLOOD UREA NITROGEN 6 MG/DL (7-18); CALCIUM LEVEL 8.2 MG/DL (8.5-10.1); CARBON DIOXIDE LEVEL 25 MEQ/L (21-32); CHLORIDE LEVEL 110 MEQ/L (98-107); CREATININE FOR GFR 0.62 MG/DL (0.55-1.30); GLOMERULAR FILTRATION RATE > 60.0 (>58); GLUCOSE, FASTING 79 MG/DL (70-100); SODIUM LEVEL 145 MEQ/L (136-145)
[2018-04-03] MEDS ORDERED: cefTRIAXone SOD 1 GM in D5W MINI-BAG PLUS 50 ML IV ONE (20:00)
[2018-04-03] MEDS: LABETALOL 100 MG TAB PO SCH (21:00)
[2018-04-03] MEDS ORDERED: OSELTAMIVIR PHOSPHATE 75 MG CAP (TAMIFLU) PO SCH (21:00)
--- NOTE | 2018-04-03 21:04 | ECGEPIP ---
Stationary ECG Study [facility] - ED Test Date: 2018-04-03 Pat Name: PAVAN BYERS Department: Room: - Gender: F Medication Nurse: : 1975 Requested By: Jean Carlos Ferreira Order Number: [id number] Reading MD: Ramila Mcdaniels Measurements Intervals Prue Rate: 75 P: 39 MS: 186 QRS: 56 QRSD: 99 T: 6 QT: 396 QTc: 444 Interpretive Statements SINUS RHYTHM NSTTW ABNORMALITY SIMILAR 09/09/17 Electronically Signed On 04-03-2018 21:04:32 EST by Ramila Mcdaniels
[2018-04-03] MEDS ORDERED: DOCU100C16 PO (21:43)
[2018-04-03] MEDS ORDERED: ONDA4TAB6 PO (21:44)
[2018-04-03] MEDS ORDERED: TOPI25TA10 PO (21:44)
[2018-04-03] MEDS ORDERED: PERC5TAB12 PO (21:44)
[2018-04-03] MEDS ORDERED: OMEP20CA3 PO (21:44)
[2018-04-03] MEDS ORDERED: LORA-243 PO (21:44)
[2018-04-03] MEDS ORDERED: MONT10TA2 PO (21:44)
[2018-04-03] MEDS ORDERED: IBUP1TAB7 PO (21:44)
[2018-04-03] MEDS ORDERED: ONDANSETRON 4 MG TAB (S0181) PO PRN (22:00)
[2018-04-03] MEDS ORDERED: PERCOCET 5MG/325MG TAB PO PRN (22:15)
[2018-04-03] MEDS ORDERED: NS 750 ML IV SCH (22:15)
[2018-04-03] MEDS ORDERED: ISOVUE-370 76% 100ML VIAL (Q9967) As Ordered ONE (22:29)
[2018-04-03] MEDS ORDERED: VANCOMYCIN HCL 1,000 MG, VIAL MATE ADAPTER 1 EACH in D5W 250 ML IV ONE (23:30)
[2018-04-03] MEDS: IPRATROPIUM 0.5MG/ALBUTEROL 2.5MG INH SOL UD 3ML (DUONEB)(J7620) NEB PRN (23:35)
--- NOTE | 2018-04-03 23:40 | REPVR ---
EXAM: CT Angiography Chest With Contrast EXAM DATE/TIME: 04/03/2018 10:57 PM CLINICAL HISTORY: 42 years old, female; Pain; Chest pain; Additional info: Assess for pe. Recent and shortness of breath TECHNIQUE: Axial computed tomographic angiography images of the chest with intravenous contrast using CT angiography protocol. All CT scans at this facility use at least one of these dose optimization techniques: automated exposure control; mA and/or kV adjustment per patient size (includes targeted exams where dose is matched to clinical indication); or iterative reconstruction. Coronal and sagittal reformatted images were created and reviewed. MIP reconstructed images were created and reviewed. COMPARISON: CR PORTABLE CHEST X-RAY 04/03/2018 6:28 PM FINDINGS: Peripheral pulmonary artery evaluation limited by cardiac and respiratory motion artifact. Central pulmonary arteries show no intraluminal defect suggestive of clot. No thoracic aortic aneurysm or dissection. Small, nonspecific mediastinal and hilar nodes are present. Small dependent bilateral pleural effusions are present. No pneumothorax. Multiple bilateral airspace opacities suggest multifocal pneumonia, worse on the right. No central endobronchial lesion. Pulmonary vascular/interstitial pattern does not suggest active pulmonary edema. Limited visualization of upper abdomen shows no concerning finding. IMPRESSION: No evidence of acute, central pulmonary embolus. Patchy multifocal bilateral lung infiltrates suggesting multifocal pneumonia with underlying pleural effusions and probable reactive lymphadenopathy Electronically signed by: Kenny Barraza On 04/03/2018 23:39:48 PM
--- NOTE | 2018-04-03 23:50 | HPE ---
DATE OF ADMISSION: 04/03/2018 CHIEF COMPLAINT: Worsening dyspnea, cough. HISTORY OF THE PRESENT ILLNESS: The patient is a 42-year-old female. She has a significant past medical history of migraines, hypertension, allergies. She was recently hospitalized at [facility] for a section. She was an inpatient from 03/30/2018 to 04/01/2018. Prior to her admission, on 03/26/2018 she was noted to be influenza positive. She was treated with 5 days of Tamiflu then. She states her symptoms slightly improved. Subsequently she was admitted here, discharged on 04/01/2018 status post section. Day #2, she had worsening dyspnea, now cough with yellowish productive sputum, pleuritic chest pain, shortness of breath after discharge. She presented back to the emergency room and noted to have right upper lobe, lower lobe pneumonia. Though the patient has been treated, this likely is most likely a postinfectious pneumonia. However, it may also be an influenza pneumonia, which would benefit from an extended course, so we will treat with Tamiflu again, as well as cover for hospital-acquired pneumonia as the patient has only been out of the hospital for within 48 hours. She does endorse some nausea, no vomiting, some mild abdominal pain. No diarrhea. No urinary symptoms. No longer having body aches. PAST MEDICAL HISTORY: See history of the present illness. PAST SURGICAL HISTORY: She had a right salpingo-oophorectomy and myomectomy in 01/2016. She had a section 3 days ago, as well as a tubal ligation. ALLERGIES: No known drug allergies. HOME MEDICATIONS: Includes Percocet, labetalol, Claritin, Singulair, Prilosec, Zofran, oxycodone, Topamax. SOCIAL HISTORY: Former smoker. Denies alcohol or illicit drug use. FAMILY HISTORY: Noncontributory. REVIEW OF SYSTEMS: A 12-point review of systems was completed, all of which were negative except those listed in the history of the present illness. ADMISSION VITAL SIGNS: Temperature 98, pulse 93, respirations 22, saturating at 94% on room air. Blood pressure 174/88. PHYSICAL EXAM: General: Well nourished, in no apparent distress. Head is normocephalic, atraumatic Eyes: Extraocular movements are intact. Pupils equal, round, reactive to light. Neck is supple. No jugular venous pressure (JVP). Lungs: Right basilar crackles. No wheezing. Cardiovascular: Regular rate and rhythm. Normal S1, S2. No murmurs, gallops, or rubs. Abdomen: Soft, nontender, nondistended. Positive bowel sounds. No rebound, no guarding. Extremities: No pitting edema or calf tenderness. Neurological: Alert and oriented times three. No focal deficit appreciated on the exam. LABS AND IMAGING: Done in the ER: White count of 10, hemoglobin , platelet count of 235. Blood gas: 7.53, 24, 86, 20, 97. . A D-dimer was done, which shows 2500. Chest x-ray shows right upper and lower lobe infiltrate. ASSESSMENT AND PLAN: This is likely a postviral pneumonia, bacterial pneumonia is the most likely cause of this patient's hospital-acquired pneumonia. Will treat with vancomycin and cefepime, as well as methicillin-resistant Staphylococcus aureus (MRSA) screen for her nares. Will send urine Legionella, urine Pneumococcal antigen as well as sputum culture. Oxygen as needed. DuoNebs as needed. Patient completed a course of Tamiflu, so this is likely viral pneumonia and because she was recently hospitalized, had a section, been out of the hospital for less than 48 hours, she requires coverage for hospital-acquired pneumonia. She does have an elevated D-Dimer, which is likely secondary to her recent as well as her ongoing infection. However, because she is hypercoagulable in the setting of recent delivery, will just get a CT angio of the chest to ensure there is not a concurrent pulmonary emboli at the same time. For the rest of her chronic medical conditions: Hypertension: Continue labetalol. Gastroesophageal reflux disease (GERD). Continue proton pump inhibitor (PPI). Allergies: Continue Singulair and antihistamine. Migraine prophylaxis: Continue Topamax. Supportive: Deep vein thrombosis (DVT) prophylaxis: Heparin subcu. Gastrointestinal (GI) Prophylaxis: She is on Prilosec. Diet: Cardiac. MTDD
[2018-04-04] VITALS (7 sets, daily range): BP systolic 140–172; BP diastolic 70–87
[2018-04-04] MEDS ORDERED: VANCOMYCIN HCL 1,000 MG, VIAL MATE ADAPTER 1 EACH in D5W 250 ML IV ONE (00:30)
[2018-04-04] MEDS: ACETAMINOPHEN TAB 650MG DOSE (2X325MG) PO PRN ×4 (04:07→16:00)
--- NOTE | 2018-04-04 05:04 | PHACANCOPD ---
PHARMACY VANCOMYCIN DOSING Pt Demographics Demographics Patient Age:42 , Weight:95.450 , Gender: female Adjusted Body Weight Date: 04/04/18, Adjusted Body Weight: [77.4] Kg Vancomycin Vancomycin indication: HCAP Vancomycin Target Ranges: 15-20 mcg/ml Vancomycin Load Y/N: Yes Load Dose Date Time Vancomycin Load Dose: 2GM Date: 04/04 Time: 0100 Vancomycin Dose Date: 04/04/18. Current Vancomycin Dose: [1 GM Q8H] Intermittent Dosing?: No Labs Labs Laboratory Tests 04/03/18 18:11 Red Blood Count 3.71 L, Mean Corpuscular Volume 90.6, Mean Corpuscular Hemoglobin 30.7, Mean Corpuscular Hemoglobin Concent 33.9, Red Cell Distribution Width 13.6, Neutrophils (%) (Auto) 76.2 H, Lymphocytes (%) (Auto) 14.6 L, Monocytes (%) (Auto) 4.5, Eosinophils (%) (Auto) 2.5, Basophils (%) (Auto) 0.3, Neutrophils # (Auto) 8.0 H, Lymphocytes # (Auto) 1.5, Monocytes # (Auto) 0.5, Eosinophils # (Auto) 0.3, Basophils # (Auto) 0.0, Calcium Level 8.2 L Micro Microbiology 04/03/18 Blood Culture, Received Pending 04/04/18 Gram Stain, Received Pending 04/04/18 Sputum Culture, Received Pending 04/04/18 MRSA Screen, Received Pending Creatinine Clearance Date:04/04/18. Creatinine Clearance: [>100]. Pending Labs VANCOMYCIN TROUGH DUE 04/05@12MID Assessment and Plan Maintaining Current Dose?: Yes Reason for dose change: No Dose Change Pharmacist Note Pharmacist Note Date: 04/04/18. Pharmacist note:Patient developed HCAP post influenza treatment with Tamiflu.41 YOF SCR=0.62 CRCL>100,Vancomycin 2 gm load administered ,then began 1 gram IV [id number]@0900. First trough ordered for 04/05@12 mid..Also receiving cefepime 1 GM IV q12h- Will continue to follow. MONICA BERRY PHARMACY Apr 04, 2018 05:04
[2018-04-04] MEDS ORDERED: CEFEPIME HCL 1 GM in D5W MINI-BAG PLUS 50 ML IV SCH (06:00)
[2018-04-04] MEDS: CEFEPIME HCL 1 GM in D5W MINI-BAG PLUS 50 ML IV SCH ×2 (06:02→18:22)
[2018-04-04] MEDS: HEPARIN SOD (PORCINE) 5000 UNITS/ML VIAL SC SCH ×3 (06:03→21:35)
[2018-04-04 07:13] LABS: HEMATOCRIT 27.4 % (36.0-47.0); HEMOGLOBIN 9.4 g/dl (12.0-15.5); MEAN CORPUSCULAR HEMOGLOBIN 30.7 pg (27.0-33.0); MEAN CORPUSCULAR HGB CONC 34.3 g/dl (32.0-36.5); MEAN CORPUSCULAR VOLUME 89.5 fl (80.0-96.0); PLATELET COUNT, AUTOMATED 189 10^3/uL (150-450); RED BLOOD COUNT 3.06 10^6/uL (4.00-5.40); WHITE BLOOD COUNT 8.2 10^3/uL (4.0-10.0)
[2018-04-04 07:38] LABS: BLOOD UREA NITROGEN 7 MG/DL (7-18); CALCIUM LEVEL 7.9 MG/DL (8.5-10.1); CARBON DIOXIDE LEVEL 24 MEQ/L (21-32); CHLORIDE LEVEL 110 MEQ/L (98-107); CREATININE FOR GFR 0.54 MG/DL (0.55-1.30); GLOMERULAR FILTRATION RATE > 60.0 (>58); GLUCOSE, FASTING 89 MG/DL (70-100); POTASSIUM SERUM 3.5 MEQ/L (3.5-5.1); SODIUM LEVEL 143 MEQ/L (136-145)
[2018-04-04] MEDS ORDERED: ONDANSETRON 4 MG ORAL DISINTEGRATING TAB (Q0162 PER 1MG) PO PRN (07:45)
[2018-04-04] MEDS ORDERED: BENZONATATE 100 MG CAP PO PRN (07:45)
[2018-04-04] MEDS: TOPIRAMATE (TopAMAX) 25 MG TAB PO SCH (07:53)
[2018-04-04] MEDS: LABETALOL 100 MG TAB PO SCH ×2 (07:54→21:34)
[2018-04-04] MEDS: OMEPRAZOLE 20 MG CAP PO SCH ×2 (08:48→21:33)
[2018-04-04] MEDS: PRENATAL VITAMINS CHEWABLE TABLET PO SCH (08:48)
[2018-04-04] MEDS: VANCOMYCIN HCL 1,000 MG, VIAL MATE ADAPTER 1 EACH in D5W 250 ML IV SCH ×2 (08:48→17:00)
[2018-04-04] MEDS: LORATADINE 10 MG TAB PO SCH (08:48)
[2018-04-04] MEDS: DOCUSATE SODIUM 100 MG CAP PO SCH ×2 (08:48→21:34)
[2018-04-04] MEDS: guaiFENesin ER 600 MG TAB PO SCH ×2 (08:48→21:34)
[2018-04-04] MEDS: MONTELUKAST 10 MG TAB PO SCH (08:48)
[2018-04-04] MEDS: IPRATROPIUM 0.5MG/ALBUTEROL 2.5MG INH SOL UD 3ML (DUONEB)(J7620) NEB PRN ×3 (09:10→21:48)
[2018-04-04] MEDS ORDERED: IBUPROFEN 800 MG TAB PO ONE (10:00)
--- NOTE | 2018-04-04 12:05 | IPNPDOC ---
Text Note Date of Service The patient was seen on 04/04/18. NOTE Subjective: Kimberly is a 42-year-old female who was admitted yesterday for multilobar pneumonia. She is postop day #5 status post low transverse section. She is seen at bedside on the pediatrics floor and is pumping currently. She states that her only complaints are a nagging cough and a headache that is similar to her migraines. She admits to some photophobia. She is unsure whether or not she had fevers overnight, but denies any nausea, vomiting, diarrhea, or cons tipation. She states that she has a productive cough and is bringing up some greenish sputum, however not very much of it. She does admit to some occasional shortness of breath, but states it feels like it may be improving. Objective: Vitals: See below General: female who appears older than stated age, occasionally coughing but in no acute distress HEENT: Atraumatic, normocephalic; mucous membranes are moist Lungs: Diffuse crackles and wheezes throughout all lung miranda, especially pr ominent in the lower lung miranda. She does have some mild E to a egophony in the bases bilaterally. Heart: Regular rate and rhythm, no murmurs, gallops, or rubs Abdomen: Normoactive bowel sounds, mild pain to palpation, incision has a dressing that is dry and intact. Extremities: No lower extremity edema bilaterally. Assessment: This is a 42 female who is admitted on 04/03/2018 for multilobar pneumonia. She is being treated for hospital-acquired pneumonia due to recent hospitalization for section. Plan: 1. Multilobar pneumonia. Differential includes postviral pneumonia, bacterial pneumonia, aspiration pneumonitis secondary to section. Gram stain showed gram-positive rods and gram-positive cocci in pairs, chains, and clusters. Official culture is pending. She is on broad-spectrum antibiotics, antibiotic stay #2 with vancomycin and cefepime. Urine Legionella, mycoplasma antibodies, and strep pneumoniae antigen are pending. Blood cultures pending. 2. Elevated d-dimer. CT angiogram ruled out pulmonary embolism. This is likely secondary to state and ongoing infection. 3. Hypertension: Vital signs stable. Continue labetalol 4. GERD. Continue PPI 5. Allergies. Continue Singulair and antihistamine 6. Migraine prophylaxis. Continue Topamax Disposition: Pending clinical improvement, cultures all laboratory testing VS,Fishbone, I+O VS, Fishbone, I+O Laboratory Tests 04/03/18 18:11 Red Blood Count 3.71 L, Mean Corpuscular Volume 90.6, Mean Corpuscular Hemoglobin 30.7, Mean Corpuscular Hemoglobin Concent 33.9, Red Cell Distribution Width 13.6, Neutrophils (%) (Auto) 76.2 H, Lymphocytes (%) (Auto) 14.6 L, Monocytes (%) (Auto) 4.5, Eosinophils (%) (Auto) 2.5, Basophils (%) (Auto) 0.3, Neutrophils # (Auto) 8.0 H, Lymphocytes # (Auto) 1.5, Monocytes # (Auto) 0.5, Eosinophils # (Auto) 0.3, Basophils # (Auto) 0.0, Calcium Level 8.2 L 04/04/18 07:01 Red Blood Count 3.06 L, Mean Corpuscular Volume 89.5, Mean Corpuscular Hemoglobin 30.7, Mean Corpuscular Hemoglobin Concent 34.3, Red Cell Distribution Width 13.5, Calcium Level 7.9 L Vital Signs Date Time Temp Pulse Resp B/P (MAP) Pulse Ox O2 Delivery O2 Flow Rate FiO2 04/04/18 10:05 80 22 143/75 (97) 04/04/18 08:30 97.8 94 04/03/18 23:29 Room Air I&O- Last 24 Hours up to 6 AM 04/04/18 06:00 Intake Total 770 ml Output Total 660 ml Balance 110 ml GME ATTESTATION GME ATTESTATION My faculty preceptor for this patient encounter was physically present during the encounter and was fully available. All aspects of the patient interview, examination, medical decision making process, and medical care plan development were reviewed and approved by the faculty preceptor. The faculty preceptor is aware and concurs with the plan as stated in the body of this note and will attest to such by his/her cosignature. BETHANY VEGA DO Apr 04, 2018 12:05
[2018-04-04] MEDS ORDERED: EXCEDRIN MIGRAINE TABLET PO ONE (17:45)
[2018-04-04] MEDS ORDERED: SLF 3 ML SYR IV PRN (19:00)
[2018-04-04] MEDS: SLF 3 ML SYR IV SCH (22:00)
[2018-04-05] VITALS: BP 161/85
--- NOTE | 2018-04-05 00:28 | PHACANCOPD ---
PHARMACY VANCOMYCIN DOSING Pt Demographics Demographics Patient Age:42 , Weight:95.450 , Gender: female Adjusted Body Weight Date: 04/04/18, Adjusted Body Weight: [77.4] Kg Vancomycin Vancomycin indication: HCAP Vancomycin Target Ranges: 15-20 mcg/ml Vancomycin Load Y/N: Yes Load Dose Date Time Vancomycin Load Dose: 2GM Date: 04/04 Time: 0100 Vancomycin Dose Date: 04/04/18. Current Vancomycin Dose: [1 GM Q8H] Intermittent Dosing?: No Labs Micro Microbiology 04/03/18 Blood Culture - Preliminary, Resulted No growth after 24 hours . All specim... 04/04/18 Respiratory Virus Panel (PCR) ([facility]) - Final, Complete 04/04/18 Gram Stain - Final, Complete 04/04/18 Sputum Culture - Final, Complete 04/04/18 MRSA Screen, Received Pending Creatinine Clearance Date:04/04/18. Creatinine Clearance: [>100]. Assessment and Plan Maintaining Current Dose?: Yes Reason for dose change: No Dose Change Pharmacist Note Pharmacist Note Date: 04/05/18. Pharmacist note:Vancomycin trough drawn tonight reported as 12.9 (goal 15-20) Will continue with current Vancomycin regimen(1 gm g8vsdow) Cefepime 1 gm IV [id number] also continues-Will continue to follow levels and labs. Date: 04/04/18. Pharmacist note:Patient developed HCAP post influenza treatment with Tamiflu.41 YOF SCR=0.62 CRCL>100,Vancomycin 2 gm load administered ,then began 1 gram IV [id number]@0900. First trough ordered for 04/05@12 mid..Also receiving cefepime 1 GM IV q12h- Will continue to follow. MONICA BERRY PHARMACY Apr 05, 2018 00:28
[2018-04-05] MEDS: VANCOMYCIN HCL 1,000 MG, VIAL MATE ADAPTER 1 EACH in D5W 250 ML IV SCH ×2 (01:28→09:12)
[2018-04-05] MEDS: ACETAMINOPHEN TAB 650MG DOSE (2X325MG) PO PRN (01:29)
[2018-04-05] MEDS: IPRATROPIUM 0.5MG/ALBUTEROL 2.5MG INH SOL UD 3ML (DUONEB)(J7620) NEB PRN ×5 (01:51→20:47)
[2018-04-05] MEDS: IBUPROFEN 400 MG TAB PO SCH ×3 (06:26→21:40)
[2018-04-05] MEDS: CEFEPIME HCL 1 GM in D5W MINI-BAG PLUS 50 ML IV SCH ×2 (06:27→18:00)
[2018-04-05] MEDS: HEPARIN SOD (PORCINE) 5000 UNITS/ML VIAL SC SCH ×3 (06:27→21:36)
[2018-04-05] MEDS: SLF 3 ML SYR IV SCH ×3 (06:27→21:36)
[2018-04-05 07:35] LABS: HEMATOCRIT 30.7 % (36.0-47.0); HEMOGLOBIN 10.3 g/dl (12.0-15.5); MEAN CORPUSCULAR HEMOGLOBIN 30.5 pg (27.0-33.0); MEAN CORPUSCULAR HGB CONC 33.6 g/dl (32.0-36.5); MEAN CORPUSCULAR VOLUME 90.8 fl (80.0-96.0); PLATELET COUNT, AUTOMATED 252 10^3/uL (150-450); RED BLOOD COUNT 3.38 10^6/uL (4.00-5.40)
[2018-04-05 08:00] VITALS: BP 147/93
[2018-04-05 08:01] LABS: BLOOD UREA NITROGEN 7 MG/DL (7-18); CALCIUM LEVEL 8.5 MG/DL (8.5-10.1); CARBON DIOXIDE LEVEL 23 MEQ/L (21-32); CHLORIDE LEVEL 110 MEQ/L (98-107); CREATININE FOR GFR 0.63 MG/DL (0.55-1.30); GLOMERULAR FILTRATION RATE > 60.0 (>58); GLUCOSE, FASTING 107 MG/DL (70-100); POTASSIUM SERUM 3.7 MEQ/L (3.5-5.1); SODIUM LEVEL 141 MEQ/L (136-145)
[2018-04-05] MEDS: PRENATAL VITAMINS CHEWABLE TABLET PO SCH (09:10)
[2018-04-05] MEDS: guaiFENesin ER 600 MG TAB PO SCH ×2 (09:11→21:37)
[2018-04-05] MEDS: OMEPRAZOLE 20 MG CAP PO SCH ×2 (09:11→21:37)
[2018-04-05] MEDS: MONTELUKAST 10 MG TAB PO SCH (09:11)
[2018-04-05] MEDS: DOCUSATE SODIUM 100 MG CAP PO SCH ×2 (09:11→21:38)
[2018-04-05] MEDS: LORATADINE 10 MG TAB PO SCH (09:11)
[2018-04-05] MEDS: TOPIRAMATE (TopAMAX) 25 MG TAB PO SCH (09:12)
[2018-04-05] MEDS: LABETALOL 100 MG TAB PO SCH ×2 (09:12→21:41)
[2018-04-05] MEDS ORDERED: INFLUENZA QUADRIVALENT PF VACCINE 0.5ML SYRINGE (90686) IM ONE (10:00)
--- NOTE | 2018-04-05 15:01 | IPNPDOC ---
Date Seen The patient was seen on 04/05/18. Progress Note SUBJECTIVE: Patient tells me that she continues to cough her chest pain and burning is improved she is feeling better and breathing better than yesterday but she is not back to her normal OBJECTIVE PHYSICAL EXAMINATION: VITAL SIGNS: Please see below. GENERAL: female appears older than stated age sitting up in bed watching television she does not appear to be in any acute distress HEENT: Cranial nerves II through XII are grossly intact CARDIOVASCULAR: S1-S2 regular. RESPIRATORY: Clear to auscultation bilaterally some mild diffuse rhonchi. ABDOMINAL: Bowel sounds are present abdomen soft and nontender EXTREMITIES: No clubbing cyanosis or edema LABORATORY DATA, IMAGING STUDIES, MICROBIOLOGY: Please see below. DVT prophylaxis ordered?: Heparin Assessment: This is a 42 female with multilobar pneumonia. Recently hospitalized for a Plan: 1. Multilobar pneumonia. Differential includes postviral pneumonia, bacterial pneumonia, aspiration pneumonitis possibly during section. Thus far cultures are negative MRSA screen is negative we'll discontinue vancomycin. The patient does appear to be improving with the current measures and as such we will continue them G. . Urine Legionella, mycoplasma antibodies, and strep pneumoniae antigen are pending. We'll continue to follow up her culture data and narrow antibiotic spectrum as appropriate. 2. Elevated d-dimer. CT angiogram ruled out pulmonary embolism. This is likely secondary to state and ongoing infection. 3. Hypertension: Controlled. Continue labetalol 4. GERD. Continue PPI 5. Allergies. Continue Singulair and antihistamine 6. Migraine prophylaxis. Continue Topamax Disposition: Pending clinical improvement VS, I&O, 24H, [facility] Vital Signs/I&O Vital Signs Date Time Temp Pulse Resp B/P (MAP) Pulse Ox O2 Delivery O2 Flow Rate FiO2 04/05/18 09:12 77 161/85 04/05/18 08:00 97.1 20 94 04/03/18 23:29 Room Air I&O- Last 24 Hours up to 6 AM 04/05/18 06:00 Intake Total 5660 ml Output Total 4150 ml Balance 1510 ml Laboratory Data 24H LABS Laboratory Tests 2 04/04/18 23:49: Vancomycin Level Trough 12.9 04/05/18 07:08: Nucleated Red Blood Cells % (auto) 0.2H, Anion Gap 8, Glomerular Filtration Rate > 60.0, Blood Urea Nitrogen 7, Creatinine 0.63, Sodium Level 141, Potassium Level 3.7, Chloride Level 110H, Carbon Dioxide Level 23, Calcium Level 8.5 CBC/BMP Laboratory Tests 04/05/18 07:08 Red Blood Count 3.38 L, Mean Corpuscular Volume 90.8, Mean Corpuscular Hemoglobin 30.5, Mean Corpuscular Hemoglobin Concent 33.6, Red Cell Distribution Width 13.3, Calcium Level 8.5 Microbiology Microbiology 04/03/18 Blood Culture - Preliminary, Resulted No growth after 24 hours . All specim... 04/04/18 Respiratory Virus Panel (PCR) ([facility]) - Final, Complete 04/04/18 Gram Stain - Final, Complete 04/04/18 Sputum Culture - Final, Complete 04/04/18 MRSA Screen - Final, Complete LUCINA THOMPSON MD Apr 05, 2018 15:01
[2018-04-05 16:00] VITALS: BP 151/82
[2018-04-05 19:10] LABS: MYCOPLASMA PNEUMONIAE IgG 298 U/mL (0-99); MYCOPLASMA PNEUMONIAE IgM <770 U/mL (0-769)
[2018-04-05 20:00] VITALS: BP 157/72
[2018-04-06] VITALS (7 sets, daily range): BP systolic 142–168; BP diastolic 74–88; O2SAT 91
[2018-04-06] MEDS: IPRATROPIUM 0.5MG/ALBUTEROL 2.5MG INH SOL UD 3ML (DUONEB)(J7620) NEB PRN ×6 (04:38→22:36)
[2018-04-06] MEDS ORDERED: methylPREDNISolone INJ 125 MG/2 ML VIAL (J2930) IV ONE (05:30)
[2018-04-06 05:46] LABS: ABG BASE EXCESS -1.7 (-2.0-2.0); ABG HCO3 20.3 MEQ/L (22.0-26.0); ABG O2 SATURATION 93.9 % (95.0-99.0); ABG PARTIAL PRESSURE CO2 26.7 mmHg (35.0-45.0); ABG STANDARD HCO3 22.9 MEQ/L (22.0-26.0); ABG TOTAL CO2 21.1 MEQ/L (22.0-29.0); ABG pH (ARTERIAL) 7.499 UNITS (7.350-7.450)
[2018-04-06] MEDS: HEPARIN SOD (PORCINE) 5000 UNITS/ML VIAL SC SCH ×3 (06:08→22:14)
[2018-04-06] MEDS: SLF 3 ML SYR IV SCH ×3 (06:08→22:14)
[2018-04-06] MEDS: IBUPROFEN 400 MG TAB PO SCH ×3 (06:09→22:14)
[2018-04-06] MEDS: CEFEPIME HCL 1 GM in D5W MINI-BAG PLUS 50 ML IV SCH ×2 (06:09→18:06)
[2018-04-06 07:36] LABS: HEMOGLOBIN 10.7 g/dl (12.0-15.5); MEAN CORPUSCULAR HEMOGLOBIN 30.5 pg (27.0-33.0); MEAN CORPUSCULAR HGB CONC 33.4 g/dl (32.0-36.5); MEAN CORPUSCULAR VOLUME 91.2 fl (80.0-96.0); PLATELET COUNT, AUTOMATED 289 10^3/uL (150-450); RED BLOOD COUNT 3.51 10^6/uL (4.00-5.40); WHITE BLOOD COUNT 11.9 10^3/uL (4.0-10.0)
[2018-04-06 07:55] LABS: BLOOD UREA NITROGEN 6 MG/DL (7-18); CALCIUM LEVEL 8.2 MG/DL (8.5-10.1); CARBON DIOXIDE LEVEL 24 MEQ/L (21-32); CHLORIDE LEVEL 109 MEQ/L (98-107); CREATININE FOR GFR 0.56 MG/DL (0.55-1.30); GLOMERULAR FILTRATION RATE > 60.0 (>58); GLUCOSE, FASTING 89 MG/DL (70-100); POTASSIUM SERUM 3.9 MEQ/L (3.5-5.1); SODIUM LEVEL 141 MEQ/L (136-145)
[2018-04-06] MEDS: TOPIRAMATE (TopAMAX) 25 MG TAB PO SCH (08:20)
[2018-04-06] MEDS: PRENATAL VITAMINS CHEWABLE TABLET PO SCH (08:20)
[2018-04-06] MEDS: guaiFENesin ER 600 MG TAB PO SCH ×2 (08:21→20:28)
[2018-04-06] MEDS: MONTELUKAST 10 MG TAB PO SCH (08:21)
[2018-04-06] MEDS: DOCUSATE SODIUM 100 MG CAP PO SCH ×2 (08:21→20:28)
[2018-04-06] MEDS: LABETALOL 100 MG TAB PO SCH ×3 (08:21→22:00)
[2018-04-06] MEDS: LORATADINE 10 MG TAB PO SCH (08:21)
[2018-04-06] MEDS: OMEPRAZOLE 20 MG CAP PO SCH ×2 (08:21→20:28)
--- NOTE | 2018-04-06 09:13 | REPVR ---
EXAM: XR Chest, 1 View EXAM DATE/TIME: 04/06/18 (5:40am) CLINICAL HISTORY: 42 year old female with SOB TECHNIQUE: Portable CXR, 1 view COMPARISON: Portable CXR of 04/03/18 CTA CHEST of 04/03/18 FINDINGS: Comparison is made with a portable CXR, and a CTA-CHEST examination, done 3 days earlier. Progression of infiltrates noted bilaterally. Diffuse, moderately dense right lung infiltrates are now seen. Hazy infiltrate noted in the left infrahilar region. No significant pleural effusions. No pneumothorax. Stable heart size. IMPRESSION: Progression of pulmonary infiltrates over the past 3 days, most notably throughout the right lung. Most likely multilobar infectious pneumonia. Recent CTA-CHESTexamination demonstrated small bilateral pleural effusions. Stable heart size. No pneumothorax. Continued follow-up is recommended. Electronically signed by: Jen Yates On 04/06/2018 09:13:14 AM
[2018-04-06] MEDS ORDERED: AZITHROMYCIN 250 MG TAB PO ONE (09:45)
--- NOTE | 2018-04-06 11:40 | IPNPDOC ---
Text Note Date of Service The patient was seen on 04/06/18. NOTE SUBJECTIVE: Patient is seen at bedside. This morning she had worsening dyspnea, requiring an extra treatment with DuoNebs and initiation of Solu-Medrol. She also had an episode of worsening hypoxia with ambulation, when she got up to use the restroom, her sat dropped to 83% and it took her about 5 minutes to bump back up to about 88%. With 2 L oxygen, she was able to be brought up back to 94%. She states that her cough has improved, she is no longer bringing anything up. She states that her chest feels tight, but denies fevers, chills, rigors, nausea, vomiting, or diarrhea. OBJECTIVE PHYSICAL EXAMINATION: VITAL SIGNS: Please see below. GENERAL: female appears older than stated age, lying on her side. She does seem to have increased work of breathing, however is in no acute distress. HEENT: Mucous membranes are moist, head is atraumatic, normocephalic. CARDIOVASCULAR: Regular rhythm, slightly tachycardic. No murmurs gallops or rubs RESPIRATORY: Patient has diffuse rhonchi and wheezes in all lung miranda. No E to A egophony is appreciated. No dullness to percussion is appreciated ABDOMINAL: Bowel sounds are present abdomen soft and nontender. Incision is healing well. EXTREMITIES: No clubbing cyanosis or edema LABORATORY DATA, IMAGING STUDIES, MICROBIOLOGY: Please see below. DVT prophylaxis ordered: Heparin Assessment: This is a 42 female with multilobar pneumonia. Recently hospitalized for a , postop day #7. Plan: 1. Multilobar pneumonia. Differential includes postviral pneumonia, bacterial pneumonia, aspiration pneumonitis possibly during section (risk factor being recent history of influenza infection). Thus far blood culture is negative, sputum culture was negative, MRSA screen was negative so vancomycin was discontinued. Urine Legionella and strep pneumoniae antigen are negative. Mycoplasma showed elevated IgG antibodies. Azithromycin has been added. Patient is on day #4 of antibiotics. SOLU-Medrol started this morning. We will give her time to improve on the steroids, however aspiration pneumonitis is seeming more likely as she is not responding as well to antibiotics. We will continue support angela care, as well as an aggressive pulmonary toilet. 2. Dyspnea. As the patient is still in the peripartum period, I think we should entertain the possibility of peripartum cardiomyopathy. We'll obtain troponins, BNP, and echo to evaluate. 3. Elevated d-dimer. CT angiogram ruled out pulmonary embolism. This is likely secondary to state and ongoing infection. 4. Hypertension: Controlled. Continue labetalol 5. GERD. Continue PPI 6. Allergies. Continue Singulair and antihistamine 7. Migraine prophylaxis. Continue Topamax Disposition: Pending clinical improvement. May require pulmonology consult if her dyspnea does not improve VS,Mikale, I+O VS, Mikale, I+O Laboratory Tests 04/06/18 07:02 Red Blood Count 3.51 L, Mean Corpuscular Volume 91.2, Mean Corpuscular Hemoglobin 30.5, Mean Corpuscular Hemoglobin Concent 33.4, Red Cell Distribution Width 13.2, Calcium Level 8.2 L Vital Signs Date Time Temp Pulse Resp B/P (MAP) Pulse Ox O2 Delivery O2 Flow Rate FiO2 04/06/18 08:21 70 154/84 04/06/18 08:21 2.0 04/06/18 08:00 98.0 28 90 04/03/18 23:29 Room Air I&O- Last 24 Hours up to 6 AM 04/06/18 06:00 Intake Total 3180 ml Output Total 6400 ml Balance -3220 ml GME ATTESTATION GME ATTESTATION My faculty preceptor for this patient encounter was physically present during the encounter and was fully available. All aspects of the patient interview, examination, medical decision making process, and medical care plan development were reviewed and approved by the faculty preceptor. The faculty preceptor is aware and concurs with the plan as stated in the body of this note and will attest to such by his/her cosignature. BETHANY VEGA DO Apr 06, 2018 11:40
[2018-04-06 11:43] LABS: NT-PRO BNP 1377 PG/ML (<125); TROPONIN I < 0.02 NG/ML (< 0.10)
[2018-04-06] MEDS: methylPREDNISolone INJ 125 MG/2 ML VIAL (J2930) IV SCH ×2 (12:18→18:06)
[2018-04-06 15:05] LABS: BODY FLUID CULTURE Not Indicated (.); LEGIONELLA ANTIGEN URINE Negative (Negative); ORGANISM ID Not indicated. (.); SPECIMEN SOURCE Urine (.); URINE STREP PNEUMONIAE ANTIGEN Negative (Negative)
[2018-04-06] MEDS: ACETAMINOPHEN TAB 650MG DOSE (2X325MG) PO PRN (20:29)
--- NOTE | 2018-04-06 22:05 | ECHO ---
DATE OF PROCEDURE: 04/06/2018 REFERRING PHYSICIAN: Isabel Aponte MD INDICATION: Dyspnea. HEIGHT: 167 cm WEIGHT: 95 kg DIMENSIONS: IVS: 0.8 LV: 5.7 LVPW: 1.0 LA: 3.9 Aorta: 2.5 IVC: 1.2 Left atrial volume index: 34 Mitral E wave velocity: 110, A-wave: 130 E prime septal: 8.7 E prime lateral: 13.6 FINDINGS The study is of good technical quality. The patient is in sinus rhythm. Left ventricle is mildly dilated, but appears to be normally contractile. I estimate left ventricular ejection fraction (LVEF) around 55%, computer-generated left ventricular systolic function was 65%. The right ventricle appears normal size. Left atrium is mildly enlarged. Right atrium appears normal. All four cardiac valves were reasonably well seen and appear normal. No pericardial effusion is noted. Inferior vena cava is normal size. Aortic root and abdominal aorta appear normal. Aortic arch was not well seen. Doppler interrogation reveals competent aortic valve. There is mild mitral insufficiency and trace tricuspid insufficiency. Unfortunately, quality of tricuspid regurgitation (TR) jet was not sufficient to adequately estimate left ventricular systolic function. Trace pulmonic insufficiency seen. Mitral inflow pattern and tissue Doppler imaging of mitral annulus reveal grade 1 diastolic dysfunction. CONCLUSIONS 1. Study is of acceptable technical quality. 2. Mildly dilated left ventricle with grossly preserved left ventricular systolic function and grade 1 diastolic dysfunction. 3. No significant valvular disease. 4. Normal central venous pressure. 5. Unable to estimate pulmonary artery pressure. COMMENT Subacute bacterial endocarditis (SBE) prophylaxis is not recommended. If this represents state I recommend followup echocardiogram in a few weeks to demonstrate normalization of LV size.
[2018-04-07] VITALS (7 sets, daily range): BP systolic 163–182; BP diastolic 76–98; O2SAT 95
[2018-04-07] MEDS: methylPREDNISolone INJ 125 MG/2 ML VIAL (J2930) IV SCH ×4 (00:45→18:31)
[2018-04-07] MEDS: IPRATROPIUM 0.5MG/ALBUTEROL 2.5MG INH SOL UD 3ML (DUONEB)(J7620) NEB SCH ×7 (01:55→19:37)
[2018-04-07] MEDS: SLF 3 ML SYR IV SCH ×3 (06:18→22:55)
[2018-04-07] MEDS: IBUPROFEN 400 MG TAB PO SCH ×3 (06:20→22:36)
[2018-04-07] MEDS: CEFEPIME HCL 1 GM in D5W MINI-BAG PLUS 50 ML IV SCH ×2 (06:21→18:31)
[2018-04-07] MEDS: HEPARIN SOD (PORCINE) 5000 UNITS/ML VIAL SC SCH ×3 (06:21→21:15)
[2018-04-07 07:20] LABS: HEMATOCRIT 32.7 % (36.0-47.0); HEMOGLOBIN 10.9 g/dl (12.0-15.5); MEAN CORPUSCULAR HEMOGLOBIN 30.2 pg (27.0-33.0); MEAN CORPUSCULAR HGB CONC 33.3 g/dl (32.0-36.5); MEAN CORPUSCULAR VOLUME 90.6 fl (80.0-96.0); PLATELET COUNT, AUTOMATED 356 10^3/uL (150-450); RED BLOOD COUNT 3.61 10^6/uL (4.00-5.40); WHITE BLOOD COUNT 22.7 10^3/uL (4.0-10.0)
[2018-04-07 07:49] LABS: BLOOD UREA NITROGEN 13 MG/DL (7-18); CALCIUM LEVEL 8.5 MG/DL (8.5-10.1); CARBON DIOXIDE LEVEL 22 MEQ/L (21-32); CHLORIDE LEVEL 109 MEQ/L (98-107); CREATININE FOR GFR 0.77 MG/DL (0.55-1.30); GLOMERULAR FILTRATION RATE > 60.0 (>58); GLUCOSE, FASTING 178 MG/DL (70-100); POTASSIUM SERUM 3.7 MEQ/L (3.5-5.1); SODIUM LEVEL 141 MEQ/L (136-145)
[2018-04-07] MEDS: MONTELUKAST 10 MG TAB PO SCH (08:47)
[2018-04-07] MEDS: PRENATAL VITAMINS CHEWABLE TABLET PO SCH (08:47)
[2018-04-07] MEDS: OMEPRAZOLE 20 MG CAP PO SCH ×2 (08:48→21:14)
[2018-04-07] MEDS: TOPIRAMATE (TopAMAX) 25 MG TAB PO SCH (08:48)
[2018-04-07] MEDS: DOCUSATE SODIUM 100 MG CAP PO SCH ×2 (08:48→21:14)
[2018-04-07] MEDS: AZITHROMYCIN 250 MG TAB PO SCH (08:48)
[2018-04-07] MEDS: guaiFENesin ER 600 MG TAB PO SCH ×2 (08:48→21:14)
[2018-04-07] MEDS: LABETALOL 100 MG TAB PO SCH ×2 (08:49→21:14)
[2018-04-07] MEDS: LORATADINE 10 MG TAB PO SCH (08:49)
--- NOTE | 2018-04-07 11:22 | IPNPDOC ---
Text Note Date of Service The patient was seen on 04/07/18. NOTE SUBJECTIVE: Patient is seen at bedside. She states that she feels much better this morning, it still does hurt to take in a deep breath, but she feels like she is breathing much more easily. She denies fevers, chills, rigors, nausea, vomiting, or diarrhea. OBJECTIVE PHYSICAL EXAMINATION: VITAL SIGNS: Please see below. GENERAL: female appears older than stated age, sitting up in bed, in no acute distress. HEENT: Mucous membranes are moist, head is atraumatic, normocephalic. CARDIOVASCULAR: Regular rhythm, slightly tachycardic. No murmurs gallops or rubs RESPIRATORY: Diffuse inspiratory and expiratory wheezes in all lung miranda, inspiratory effort is much better today. There are no rhonchi present. ABDOMINAL: Bowel sounds are present abdomen soft and nontender. Incision is healing well. EXTREMITIES: No clubbing cyanosis or edema LABORATORY DATA, IMAGING STUDIES, MICROBIOLOGY: Please see below. DVT prophylaxis ordered: Heparin Assessment: This is a 42 female with multilobar pneumonia. Recently hospitalized for a , postop day #8. Antibiotics day #5, steroids a number to Plan: 1. Multilobar pneumonia. Differential includes postviral pneumonia, bacterial pneumonia, aspiration pneumonitis possibly during section (risk factor being recent history of influenza infection). Thus far blood culture is negative, sputum culture was negative, MRSA screen was negative so vancomycin was discontinued. Urine Legionella and strep pneumoniae antigen are negative. Mycoplasma showed elevated IgG antibodies. Azithromycin has been added. Patient is on day #5 of antibiotics. SOLU-Medrol started yesterday, patient feels much improved. Aspiration pneumonitis is more likely, especially as she told me this morning that she vomited after being given medications for anesthesia for her C- section. Clinically, the patient looks much better this morning, so we will continue supportive care, as well as an aggressive pulmonary toilet. 2. Dyspnea. Most likely secondary to aspiration pneumonitis. Echocardiogram showed grade 1 diastolic dysfunction, with recommendations to follow-up in 3 weeks. Laboratory data was not concerning for any type of cardiac event. Patient is not in congestive heart failure at this time. 3. Elevated d-dimer. CT angiogram ruled out pulmonary embolism. This is likely secondary to state and ongoing inflammation/section 4. Hypertension: Controlled. Continue labetalol 5. GERD. Continue PPI 6. Allergies. Continue Singulair and antihistamine 7. Migraine prophylaxis. Continue Topamax Disposition: Pending clinical improvement. VS,Fishbone, I+O VS, Fishbone, I+O Laboratory Tests 04/07/18 06:46 Red Blood Count 3.61 L, Mean Corpuscular Volume 90.6, Mean Corpuscular Hemoglobin 30.2, Mean Corpuscular Hemoglobin Concent 33.3, Red Cell Distribution Width 13.1, Calcium Level 8.5 Vital Signs Date Time Temp Pulse Resp B/P (MAP) Pulse Ox O2 Delivery O2 Flow Rate FiO2 04/07/18 08:49 92 168/76 04/07/18 08:00 98.4 34 94 2.5 04/06/18 16:45 Nasal Cannula I&O- Last 24 Hours up to 6 AM 04/07/18 06:00 Intake Total 2700 ml Output Total 3250 ml Balance -550 ml GME ATTESTATION GME ATTESTATION My faculty preceptor for this patient encounter was physically present during the encounter and was fully available. All aspects of the patient interview, examination, medical decision making process, and medical care plan development were reviewed and approved by the faculty preceptor. The faculty preceptor is aware and concurs with the plan as stated in the body of this note and will attest to such by his/her cosignature. BETHANY VEGA DO Apr 07, 2018 11:22
[2018-04-07] MEDS: IPRATROPIUM 0.5MG/ALBUTEROL 2.5MG INH SOL UD 3ML (DUONEB)(J7620) NEB PRN ×2 (11:48→15:59)
[2018-04-07] MEDS: ACETAMINOPHEN TAB 650MG DOSE (2X325MG) PO PRN (17:02)
[2018-04-08] MEDS: IPRATROPIUM 0.5MG/ALBUTEROL 2.5MG INH SOL UD 3ML (DUONEB)(J7620) NEB SCH ×3 (00:11→12:39)
[2018-04-08] MEDS: methylPREDNISolone INJ 125 MG/2 ML VIAL (J2930) IV SCH ×3 (00:33→12:02)
[2018-04-08 04:00] VITALS: BP 160/70
[2018-04-08] MEDS: IBUPROFEN 400 MG TAB PO SCH ×2 (06:26→13:25)
[2018-04-08] MEDS: HEPARIN SOD (PORCINE) 5000 UNITS/ML VIAL SC SCH ×2 (06:26→13:25)
[2018-04-08] MEDS: SLF 3 ML SYR IV SCH ×2 (06:26→13:25)
[2018-04-08] MEDS: CEFEPIME HCL 1 GM in D5W MINI-BAG PLUS 50 ML IV SCH (06:27)
[2018-04-08 08:19] LABS: HEMATOCRIT 31.6 % (36.0-47.0); HEMOGLOBIN 10.3 g/dl (12.0-15.5); MEAN CORPUSCULAR HEMOGLOBIN 29.9 pg (27.0-33.0); MEAN CORPUSCULAR HGB CONC 32.6 g/dl (32.0-36.5); MEAN CORPUSCULAR VOLUME 91.9 fl (80.0-96.0); PLATELET COUNT, AUTOMATED 394 10^3/uL (150-450); RED BLOOD COUNT 3.44 10^6/uL (4.00-5.40); WHITE BLOOD COUNT 23.2 10^3/uL (4.0-10.0)
[2018-04-08 08:32] LABS: BLOOD UREA NITROGEN 14 MG/DL (7-18); CALCIUM LEVEL 8.4 MG/DL (8.5-10.1); CARBON DIOXIDE LEVEL 22 MEQ/L (21-32); CHLORIDE LEVEL 110 MEQ/L (98-107); CREATININE FOR GFR 0.62 MG/DL (0.55-1.30); GLOMERULAR FILTRATION RATE > 60.0 (>58); GLUCOSE, FASTING 119 MG/DL (70-100); POTASSIUM SERUM 4.3 MEQ/L (3.5-5.1); SODIUM LEVEL 143 MEQ/L (136-145)
[2018-04-08] MEDS: OMEPRAZOLE 20 MG CAP PO SCH (09:29)
[2018-04-08] MEDS: MONTELUKAST 10 MG TAB PO SCH (09:29)
[2018-04-08] MEDS: AZITHROMYCIN 250 MG TAB PO SCH (09:29)
[2018-04-08] MEDS: guaiFENesin ER 600 MG TAB PO SCH (09:29)
[2018-04-08] MEDS ORDERED: PRED10TA2 PO (09:29)
[2018-04-08] MEDS: PRENATAL VITAMINS CHEWABLE TABLET PO SCH (09:29)
[2018-04-08 09:30] VITALS: BP 180/102
[2018-04-08] MEDS: LABETALOL 100 MG TAB PO SCH (09:30)
[2018-04-08] MEDS: TOPIRAMATE (TopAMAX) 25 MG TAB PO SCH (09:30)
[2018-04-08] MEDS: DOCUSATE SODIUM 100 MG CAP PO SCH (09:30)
[2018-04-08] MEDS: LORATADINE 10 MG TAB PO SCH (09:30)
[2018-04-08] MEDS ORDERED: LEVA750T7 PO (10:42)
[2018-04-08] MEDS ORDERED: IPRA0.00 NEB (11:14)
[2018-04-08] MEDS ORDERED: PROAAER10 INH (11:54)
--- NOTE | 2018-04-08 14:34 | DSES ---
DATE OF ADMISSION: 04/03/2018 DATE OF DISCHARGE: 04/08/2018 CONSULTANTS: None. PROCEDURES: None. DISCHARGE DIAGNOSES: 1. Aspiration pneumonitis. 2. Multilobar pneumonia. 3. Dyspnea. HOSPITAL COURSE: This is a 42-year-old female who was recently hospitalized at [facility] for section from 03/30/2018 to 04/01/2018. Prior to her admission on 03/26/2018, she was found to be influenza positive and treated with 5 days of Tamiflu. On postop day #2, she had worsening dyspnea and a cough with yellowish productive sputum, pleuritic chest pain and shortness of breath. She presented back to the emergency department and was noted to have right upper lobe and lower lobe pneumonia. She was admitted with vancomycin and cefepime, oxygen as needed, DuoNebs as needed. She was found to have an elevated D-dimer in the emergency department as well, which was most likely secondary to her state as well as ongoing infection. CT angio of the chest ruled out pulmonary embolism. Her Staphylococcus aureus (MRSA) screen was negative so vancomycin was discontinued. Urine legionella and mycoplasma antibodies and Streptococcus pneumoniae were ordered, with mycoplasma antibodies coming back positive for IgG but not IgM. Azithromycin was started. Patient had some significant desaturations with ambulation requiring more DuoNebs. Repeat chest x-ray showed worsening of the infiltrates in the right lung and both upper, middle, and lower lobes. She was started on IV steroids. Patient then added more information that she had vomited after receiving anesthesia medications for her section, and that she had not responded to IV antibiotics how pneumonia normally should. We thought that aspiration pneumonitis was much more likely. She continued to improve on steroids and nebulizer treatments. She had completed 6 days of antibiotics and will be given 3 more days to cover a 9-day course. On 04/06/2018, due to her not responding to IV antibiotics, and having some increased dyspnea, we were suspicious that she may have some peripartum cardiomyopathy. BNP was 1377. Echocardiogram was obtained which showed a mildly dilated left ventricle with grossly preserved left ventricular systolic function and grade [address] Ferguson recommended a followup echocardiogram in a few weeks to demonstrate normalization of left ventricular size because she is in the state. On 04/08/2018, she was ambulating without desaturations. She was feeling much better and she was deemed stable for discharge. SUBJECTIVE: The patient is seen at bedside today. She states she feels much better. She is not coughing as often, she finds it easier to breath. She denies fevers, chills, chest pain, palpitations, nausea, vomiting or diarrhea. She is eager to go home to see her child. OBJECTIVE: VITALS: Temperature 97.2, pulse 89 and regular, respiratory rate 32, blood pressure 160/70, pulse ox 95% on room air. GENERAL: female who appears older than stated age sitting up in bed in no acute distress. HEENT: Mucous membranes are moist. Head is atraumatic, normocephalic. NECK: Supple. No jugular venous distention (JVD). HEART: Regular rate and rhythm. No murmurs, gallops or rubs. RESPIRATORY: Breath sounds are much better today bilaterally. She has some mild respiratory wheezes in the lung miranda. There are no rhonchi present. ABDOMEN: Bowel sounds are present. Her abdomen is soft and nontender. Her incision is healing well. EXTREMITIES: No clubbing, cyanosis or edema. LABORATORY DATA: CBC: WBC 23.2, hemoglobin 10.3, hematocrit 31.6, platelets 394. Chemistry: Sodium 143, potassium 4.3, chloride 110, carbon dioxide 22, BUN 14, creatinine 0.62, fasting glucose 119, calcium 8.4, troponin less than 0.02. BNP 1377 on 04/06/2018. Blood gas on 04/06/2018 shows an arterial pH of 7.499, pCO2 26.7, bicarbonate 20.3, consistent with a respiratory alkalosis. Serology: Urine legionella, Streptococcus pneumoniae and mycoplasma pneumonia IgM were negative. Mycoplasma pneumonia IgG was 295. D-dimer on 04/03/2018 was 2505. Microbiology: Blood culture from 04/03/2018 was negative. Staphylococcus aureus (MRSA) screen was negative. Sputum culture was negative and respiratory virus panel was negative. Imaging: Chest x-ray on 04/03/2018 showed patchy density in the right upper and lower lobes consistent with infiltrate. The left lung is clear. CT angiography of the chest done 04/03/2018 showed no evidence of acute central pulmonary embolus. Patchy multifocal bilateral lung infiltrates suggesting multifocal pneumonia with underlying pleural effusion and possible reactive lymphadenopathy. Chest x-ray from 04/06/2018 showed progression of pulmonary infiltrates most notably throughout the right lung most likely multilobar pneumonia. No pneumothorax. ASSESSMENT: This is a 42-year-old female admitted with multilobar pneumonia. Based on her hospital course, this is most likely aspiration pneumonitis. PLAN: 1. Aspiration pneumonitis: Patient is on steroids day #3. Infectious disease workup was negative. She will be sent home on a steroid taper. She looks much better this morning and is deemed safe for discharge. 2. Multilobar pneumonia: Patient will be finishing an 8-day course of antibiotics, she will be sent home with 3 days of Levaquin. 3. Dyspnea: Most likely secondary to aspiration pneumonitis. Resolving. Echocardiogram showed grade 1 diastolic dysfunction with the recommendation to followup in 3 weeks. Laboratory data was not concerning for any type of cardiac event. The patient is not in congestive heart failure at this time. 4. History of asthma: Aggravated by the aspiration pneumonitis. She is being sent home with an albuterol inhaler, albuterol nebulizer solution and a nebulizer. 5. Elevated D-dimer: CT angiogram ruled out pulmonary embolism likely secondary to state and ongoing inflammation/infection. DISCHARGE MEDICATIONS: - albuterol inhaler two puffs every 4-6 hours as needed for wheezing - albuterol ipratropium nebulizer solution 3 mL every 6 hours as needed. - Levaquin 750 mg by mouth daily for 3 days - prednisone 10 mg by mouth taper: 40 mg daily times 3 days, 30 mg daily times 3 days, 20 mg daily times 3 days, 10 mg daily times 3 days, then stop. - Tylenol 1000 mg by mouth every 6 hours as needed for headache - docusate sodium 100 mg by mouth twice a day - ibuprofen 800 mg by mouth three times a day as needed for pain - labetalol 100 mg by mouth twice a day - loratadine 10 mg by mouth daily - montelukast 10 mg by mouth daily - multivitamin one tablet by mouth daily - omeprazole 20 mg by mouth twice a day - Zofran 4 mg by mouth every 6 hours as needed nausea - topiramate 25 mg by mouth daily - home Percocet 5/325 mg one tablet by mouth every 6 hours as needed for pain (provided by her OB for post-surgical/ pain) DISPOSITION: Stable. Diet: Regular. Activity: As tolerated. Followup: With her primary care provider within the next 1-2 weeks. [facility] as scheduled with Dr. Houston. Greater than 30 minutes was spent on discharge. My faculty preceptor for this patient encounter was physically present during the encounter and was fully available. All aspects of the patient interview, examination, medical decision making process, and medical care plan development were reviewed and approved by the faculty preceptor. The faculty preceptor is aware and concurs with the plan as stated in the body of this note and will attest to such by his/her co-signature. BILL
== END 2018-04-08 13:50 | disposition home or self-care (01) | DRG 561 ==
LOC: M ED 17:48 → M ED INP 21:58 → M PED 23:59
PROVIDERS: ADMIT Internal Medicine; ATTEND Internal Medicine
DX: O99.53 Diseases of the respiratory system complicating the puerperium (principal); J15.9 Unspecified bacterial pneumonia; K21.9 Gastro-esophageal reflux disease without esophagitis; G43.909 Migraine, unspecified, not intractable, without status migrainosus; O10.03 Pre-existing essential hypertension complicating the puerperium; O99.63 Diseases of the digestive system complicating the puerperium; J69.0 Pneumonitis due to inhalation of food and vomit; O99.355 Diseases of the nervous system complicating the puerperium; J45.909 Unspecified asthma, uncomplicated; Z79.899 Other long term (current) drug therapy

== ENCOUNTER → 2018-05-24 | Outpatient (REF) | payer BC, MEDICAID ==
[~2018-05-24] MED LIST changes: +DOCU100C16 PO; +HYDR-3715 PO; +IPRA0.00 NEB; +LEVA750T7 PO; +MONT10TA2 PO; -NORCOTAB PO; +PRED10TA2 PO; +PROAAER10 INH; +TOPI25TA10 PO
[2018-05-26 14:12] LABS: HPV HYBRID CAPTURE II Negative (Negative)
== END ==
LOC: M LAB REF 19:04
PROVIDERS: ATTEND Obstetrics & Gynecology
DX: Z12.4 Encounter for screening for malignant neoplasm of cervix (principal)
CPT/HCPCS: 87624; G0123

== ENCOUNTER → 2019-03-19 | Outpatient (CLI) | payer BC, MEDICAID ==
[~2019-03-19] MED LIST changes: +OMEP1CAP73 PO; -OMEP20CA3 PO; -OMEP40CA2 PO; +OMEP40CA97 PO
[2019-03-19 11:16] LABS: BLOOD UREA NITROGEN 22 MG/DL (7-18); CREATININE FOR GFR 0.88 MG/DL (0.55-1.30); GLOMERULAR FILTRATION RATE > 60.0 (>58)
== END ==
LOC: M LAB 09:32
PROVIDERS: ATTEND Psychiatry & Neurology Neurology
DX: I10 Essential (primary) hypertension (principal)

== ENCOUNTER → 2019-05-17 | Outpatient (REF) | payer BC, MEDICAID ==
[~2019-05-17] MED LIST changes: -MONT10TA2 PO; +MONT10TA4 PO
[2019-05-17 17:55] LABS: AMORPHOUS SEDIMENT SMALL (NEGATIVE); APPEARANCE, URINE CLOUDY (CLEAR); BACTERIA, URINE AUTO 1+ (NEGATIVE); BILIRUBIN, URINE AUTO NEGATIVE (NEGATIVE); BLOOD, URINE BLOOD NEGATIVE (NEGATIVE); COLOR, URINE YELLOW (YELLOW); GLUCOSE, URINE (UA) AUTO NEGATIVE (NEGATIVE); KETONE, URINE AUTO NEGATIVE (NEGATIVE); LEUKOCYTE ESTERASE, URINE AUTO NEGATIVE (NEGATIVE); NITRITE, URINE AUTO NEGATIVE (NEGATIVE); PROTEIN, URINE AUTO NEGATIVE (NEGATIVE); RBC, URINE AUTO 1 /HPF (0-3); SPECIFIC GRAVITY URINE AUTO 1.024 (1.002-1.035); SQUAMOUS EPITHELIAL CELL UR AU 8 /HPF (0-6); UROBILINOGEN, URINE AUTO 0.2 mg/dL (0.0-2.0); WBC, URINE AUTO 6 /HPF (0-3)
[2019-05-17 18:00] LABS: BASO # 0.1 10^3/uL (0.0-0.2); BASO % 0.7 % (0.0-1.0); EOS # 0.1 10^3/uL (0.0-0.5); EOS % 2.1 % (0.0-3.0); HEMATOCRIT 42.1 % (36.0-47.0); LYMPH # 2.8 10^3/uL (1.5-5.0); LYMPH % 41.7 % (24.0-44.0); MEAN CORPUSCULAR HEMOGLOBIN 30.5 pg (27.0-33.0); MEAN CORPUSCULAR HGB CONC 33.3 g/dl (32.0-36.5); MEAN CORPUSCULAR VOLUME 91.7 fl (80.0-96.0); MONO # 0.4 10^3/uL (0.0-0.8); MONO % 5.5 % (0.0-5.0); NEUTROPHILS # 3.3 10^3/uL (1.5-8.5); NEUTROPHILS % 49.9 % (36.0-66.0); PLATELET COUNT, AUTOMATED 229 10^3/uL (150-450); RED BLOOD COUNT 4.59 10^6/uL (4.00-5.40); WHITE BLOOD COUNT 6.7 10^3/uL (4.0-10.0)
[2019-05-17 18:09] LABS: ALBUMIN 3.8 GM/DL (3.2-5.2); ALT/SGPT 33 U/L (12-78); BILIRUBIN,TOTAL 0.3 MG/DL (0.2-1.0); BLOOD UREA NITROGEN 19 MG/DL (7-18); CALCIUM LEVEL 9.5 MG/DL (8.5-10.1); CARBON DIOXIDE LEVEL 29 MEQ/L (21-32); CHLORIDE LEVEL 111 MEQ/L (98-107); CHOLESTEROL LEVEL 258 MG/DL (<200); CHOLESTEROL RISK RATIO 4.526 (<5); CREATININE FOR GFR 0.73 MG/DL (0.55-1.30); FREE T4 0.75 NG/DL (0.76-1.46); GLOMERULAR FILTRATION RATE > 60.0 (>58); GLUCOSE, FASTING 78 MG/DL (70-100); HDL CHOLESTEROL 57 MG/DL (>40); LDL CHOLESTEROL 176 MG/DL (<100); MAGNESIUM LEVEL 2.3 MG/DL (1.8-2.4); NON-HDL-C 201 MG/DL; POTASSIUM SERUM 4.2 MEQ/L (3.5-5.1); SODIUM LEVEL 142 MEQ/L (136-145); TOTAL PROTEIN 7.4 GM/DL (6.4-8.2); TRIGLYCERIDES LEVEL 123 MG/DL (<150)
[2019-05-17 18:13] LABS: TOTAL 25(OH) VITAMIN D 12.2 NG/ML (30.0-100.0)
[2019-05-17 18:34] LABS: HEMOGLOBIN A1c 5.6 %
== END ==
LOC: M LAB REF 16:38
PROVIDERS: ATTEND Nurse Practitioner Family
DX: N39.3 Stress incontinence (female) (male) (principal)

== ENCOUNTER → 2019-06-28 | Outpatient (REF) | payer BC, MEDICAID ==
[~2019-06-28] MED LIST changes: +CYCL-707 PO; -CYCL10TA PO
== END ==
LOC: M LAB REF 17:03
PROVIDERS: ATTEND Nurse Practitioner Family
DX: R30.0 Dysuria (principal)

== ENCOUNTER → 2019-10-15 | Outpatient (REF) | payer BC, MEDICAID ==
[2019-10-15 14:33] LABS: APPEARANCE, URINE CLEAR (CLEAR); BACTERIA, URINE AUTO NEGATIVE (NEGATIVE); BILIRUBIN, URINE AUTO NEGATIVE (NEGATIVE); BLOOD, URINE BLOOD NEGATIVE (NEGATIVE); COLOR, URINE YELLOW (YELLOW); GLUCOSE, URINE (UA) AUTO NEGATIVE (NEGATIVE); KETONE, URINE AUTO NEGATIVE (NEGATIVE); LEUKOCYTE ESTERASE, URINE AUTO NEGATIVE (NEGATIVE); MUCUS, URINE SMALL (NEGATIVE); NITRITE, URINE AUTO NEGATIVE (NEGATIVE); PROTEIN, URINE AUTO NEGATIVE (NEGATIVE); RBC, URINE AUTO 0 /HPF (0-3); SQUAMOUS EPITHELIAL CELL UR AU 1 /HPF (0-6); UROBILINOGEN, URINE AUTO 0.2 mg/dL (0.0-2.0); WBC, URINE AUTO 1 /HPF (0-3)
== END ==
LOC: M LAB REF 11:11
PROVIDERS: ATTEND Physician Assistant Medical
DX: N39.0 Urinary tract infection, site not specified (principal)

== ENCOUNTER → 2019-10-29 | Outpatient (REF) | payer BC, MEDICAID ==
[2019-10-29 18:51] LABS: BASO % 0.6 % (0.0-1.0); EOS # 0.2 10^3/uL (0.0-0.5); EOS % 2.7 % (0.0-3.0); HEMATOCRIT 43.3 % (36.0-47.0); HEMOGLOBIN 14.1 g/dl (12.0-15.5); LYMPH # 2.6 10^3/uL (1.5-5.0); LYMPH % 38.8 % (24.0-44.0); MEAN CORPUSCULAR HEMOGLOBIN 30.2 pg (27.0-33.0); MEAN CORPUSCULAR HGB CONC 32.6 g/dl (32.0-36.5); MEAN CORPUSCULAR VOLUME 92.7 fl (80.0-96.0); MONO # 0.3 10^3/uL (0.0-0.8); MONO % 5.1 % (0.0-5.0); NEUTROPHILS # 3.5 10^3/uL (1.5-8.5); NEUTROPHILS % 52.6 % (36.0-66.0); PLATELET COUNT, AUTOMATED 213 10^3/uL (150-450); RED BLOOD COUNT 4.67 10^6/uL (4.00-5.40); WHITE BLOOD COUNT 6.6 10^3/uL (4.0-10.0)
[2019-10-29 19:01] LABS: ALT/SGPT 44 U/L (12-78); BILIRUBIN,TOTAL 0.5 MG/DL (0.2-1.0); BLOOD UREA NITROGEN 17 MG/DL (7-18); CALCIUM LEVEL 9.2 MG/DL (8.5-10.1); CARBON DIOXIDE LEVEL 28 MEQ/L (21-32); CHLORIDE LEVEL 109 MEQ/L (98-107); CREATININE FOR GFR 0.77 MG/DL (0.55-1.30); GLOMERULAR FILTRATION RATE > 60.0 (>58); GLUCOSE, FASTING 83 MG/DL (70-100); POTASSIUM SERUM 4.2 MEQ/L (3.5-5.1); SODIUM LEVEL 142 MEQ/L (136-145); TOTAL PROTEIN 7.5 GM/DL (6.4-8.2)
== END ==
LOC: M LAB REF 18:30
PROVIDERS: ATTEND Nurse Practitioner Family
DX: N39.0 Urinary tract infection, site not specified (principal); R30.0 Dysuria

== ENCOUNTER → 2019-10-29 | Outpatient (REF) | payer BC, MEDICAID ==
[2019-10-29 18:29] LABS: APPEARANCE, URINE CLEAR (CLEAR); BACTERIA, URINE AUTO NEGATIVE (NEGATIVE); BILIRUBIN, URINE AUTO NEGATIVE (NEGATIVE); BLOOD, URINE BLOOD NEGATIVE (NEGATIVE); COLOR, URINE YELLOW (YELLOW); GLUCOSE, URINE (UA) AUTO NEGATIVE (NEGATIVE); KETONE, URINE AUTO NEGATIVE (NEGATIVE); LEUKOCYTE ESTERASE, URINE AUTO NEGATIVE (NEGATIVE); MUCUS, URINE SMALL (NEGATIVE); NITRITE, URINE AUTO NEGATIVE (NEGATIVE); PROTEIN, URINE AUTO NEGATIVE (NEGATIVE); RBC, URINE AUTO 0 /HPF (0-3); SQUAMOUS EPITHELIAL CELL UR AU 1 /HPF (0-6); UROBILINOGEN, URINE AUTO 0.2 mg/dL (0.0-2.0); WBC, URINE AUTO 0 /HPF (0-3)
== END ==
LOC: M LAB REF 17:38
PROVIDERS: ATTEND Nurse Practitioner Family
DX: R30.0 Dysuria (principal); N39.0 Urinary tract infection, site not specified

== ENCOUNTER → 2020-04-03 | Outpatient (REF) | payer BC, MEDICAID ==
[~2020-04-03] MED LIST changes: +LABE100T4 PO; -LABE10TAB PO; +MONT10TA10 PO; -MONT10TA4 PO
[2020-04-03 12:47] LABS: BASO # 0.1 10^3/uL (0.0-0.2); BASO % 0.8 % (0.0-1.0); EOS # 0.2 10^3/uL (0.0-0.5); EOS % 2.5 % (0.0-3.0); HEMATOCRIT 44.2 % (36.0-47.0); HEMOGLOBIN 13.6 g/dl (12.0-15.5); LYMPH # 2.4 10^3/uL (1.5-5.0); LYMPH % 37.1 % (24.0-44.0); MEAN CORPUSCULAR HEMOGLOBIN 29.7 pg (27.0-33.0); MEAN CORPUSCULAR HGB CONC 30.8 g/dl (32.0-36.5); MEAN CORPUSCULAR VOLUME 96.5 fl (80.0-96.0); MONO # 0.3 10^3/uL (0.0-0.8); MONO % 4.6 % (2.0-8.0); NEUTROPHILS # 3.5 10^3/uL (1.5-8.5); NEUTROPHILS % 54.8 % (36.0-66.0); PLATELET COUNT, AUTOMATED 173 10^3/uL (150-450); RED BLOOD COUNT 4.58 10^6/uL (4.00-5.40); WHITE BLOOD COUNT 6.4 10^3/uL (4.0-10.0)
[2020-04-03 12:48] LABS: ALBUMIN 3.8 GM/DL (3.2-5.2); ALT/SGPT 24 U/L (12-78); BILIRUBIN,TOTAL 0.3 MG/DL (0.2-1.0); BLOOD UREA NITROGEN 19 MG/DL (7-18); CALCIUM LEVEL 8.2 MG/DL (8.5-10.1); CARBON DIOXIDE LEVEL 21 MEQ/L (21-32); CHLORIDE LEVEL 114 MEQ/L (98-107); CHOLESTEROL LEVEL 187 MG/DL (<200); CHOLESTEROL RISK RATIO 3.339 (<5); CREATININE FOR GFR 0.81 MG/DL (0.55-1.30); FREE T4 0.73 NG/DL (0.76-1.46); GLOMERULAR FILTRATION RATE > 60.0 (>58); GLUCOSE, FASTING 92 MG/DL (70-100); HDL CHOLESTEROL 56 MG/DL (>40); LDL CHOLESTEROL 113 MG/DL (<100); NON-HDL-C 131 MG/DL; POTASSIUM SERUM 4.1 MEQ/L (3.5-5.1); SODIUM LEVEL 144 MEQ/L (136-145); TRIGLYCERIDES LEVEL 88 MG/DL (<150)
[2020-04-03 13:00] LABS: TOTAL 25(OH) VITAMIN D 11.1 NG/ML (30.0-100.0)
[2020-04-03 13:23] LABS: HEMOGLOBIN A1c 5.4 %
== END ==
LOC: M LAB REF 11:23
PROVIDERS: ATTEND Nurse Practitioner Family
DX: I10 Essential (primary) hypertension (principal); E66.9 Obesity, unspecified; E78.5 Hyperlipidemia, unspecified; E55.9 Vitamin D deficiency, unspecified

== ENCOUNTER 2020-07-03 20:17 | Emergency (ER) | payer BC, MEDICAID ==
[~2020-07-03] VITALS: Ht 167.6 cm; Wt 106.1 kg
[2020-07-03 20:18] VITALS: BP 136/99
[2020-07-04 00:34] LABS: BASO % 0.4 % (0.0-1.0); EOS # 0.2 10^3/uL (0.0-0.5); EOS % 2.7 % (0.0-3.0); HEMATOCRIT 40.5 % (36.0-47.0); HEMOGLOBIN 13.4 g/dl (12.0-15.5); LYMPH # 3.1 10^3/uL (1.5-5.0); MEAN CORPUSCULAR HEMOGLOBIN 30.1 pg (27.0-33.0); MEAN CORPUSCULAR HGB CONC 33.1 g/dl (32.0-36.5); MONO # 0.4 10^3/uL (0.0-0.8); MONO % 5.3 % (2.0-8.0); NEUTROPHILS # 3.6 10^3/uL (1.5-8.5); NEUTROPHILS % 49.3 % (36.0-66.0); PLATELET COUNT, AUTOMATED 229 10^3/uL (150-450); RED BLOOD COUNT 4.45 10^6/uL (4.00-5.40); WHITE BLOOD COUNT 7.3 10^3/uL (4.0-10.0)
[2020-07-04 01:09] LABS: ALBUMIN 3.8 GM/DL (3.2-5.2); ALT/SGPT 27 U/L (12-78); BILIRUBIN,DIRECT 0.1 MG/DL (0.0-0.2); BILIRUBIN,TOTAL 0.3 MG/DL (0.2-1.0); BLOOD UREA NITROGEN 20 MG/DL (7-18); CALCIUM LEVEL 8.7 MG/DL (8.5-10.1); CARBON DIOXIDE LEVEL 28 MEQ/L (21-32); CHLORIDE LEVEL 109 MEQ/L (98-107); CREATININE FOR GFR 0.94 MG/DL (0.55-1.30); GLOMERULAR FILTRATION RATE > 60.0 (>58); GLUCOSE, FASTING 92 MG/DL (70-100); LIPASE 156 U/L (73-393); POTASSIUM SERUM 3.9 MEQ/L (3.5-5.1); SODIUM LEVEL 142 MEQ/L (136-145); TOTAL PROTEIN 7.3 GM/DL (6.4-8.2)
[2020-07-04 01:13] LABS: ERYTHROCYTE SEDIMENTATION RATE 15 mm/hr (0-20)
[2020-07-04] MEDS ORDERED: DOXY100C37 PO (03:00)
[2020-07-04] MEDS ORDERED: DOXYCYCLINE HYCLATE 100MG TABLET PO ONE (03:00)
== END 2020-07-04 04:39 | disposition home or self-care (01) ==
LOC: M ED 20:17
DX: S30.854A Superficial foreign body of vagina and vulva, initial encounter (principal); X58.XXXA Exposure to other specified factors, initial encounter; Y92.9 Unspecified place or not applicable; Y93.9 Activity, unspecified; Y99.9 Unspecified external cause status; Z79.899 Other long term (current) drug therapy

== ENCOUNTER 2021-03-01 11:04 | Emergency (ER) | payer BC, MEDICAID ==
[~2021-03-01] VITALS: Ht 167.6 cm; Wt 100.0 kg
[~2021-03-01 11:04] MED LIST changes: +DOXY-443 PO; -MONT10TA10 PO; +MONT10TA97 PO; +OMEP40CA4 PO; -OMEP40CA97 PO
[2021-03-01] MEDS ORDERED: SUMA100T2 (11:13)
[2021-03-01] MEDS ORDERED: ASPIRIN 81 MG CHEW TABLET PO ONE (11:30)
[2021-03-01 11:46] LABS: BASO % 0.5 % (0.0-1.0); EOS # 0.3 10^3/uL (0.0-0.5); HEMATOCRIT 39.5 % (36.0-47.0); LYMPH # 2.7 10^3/uL (1.5-5.0); LYMPH % 35.9 % (24.0-44.0); MEAN CORPUSCULAR HEMOGLOBIN 30.4 pg (27.0-33.0); MEAN CORPUSCULAR HGB CONC 32.9 g/dl (32.0-36.5); MEAN CORPUSCULAR VOLUME 92.3 fl (80.0-96.0); MONO # 0.4 10^3/uL (0.0-0.8); MONO % 5.1 % (2.0-8.0); NEUTROPHILS # 4.1 10^3/uL (1.5-8.5); NEUTROPHILS % 54.2 % (36.0-66.0); PLATELET COUNT, AUTOMATED 211 10^3/uL (150-450); RED BLOOD COUNT 4.28 10^6/uL (4.00-5.40); WHITE BLOOD COUNT 7.5 10^3/uL (4.0-10.0)
[2021-03-01] MEDS: NITROGLYCERIN 0.4 MG SUBL TABLET SL PRN ×3 (11:51→12:06)
[2021-03-01 12:21] LABS: CK-MB VALUE MASS 1.3 NG/ML (<3.6); MB/CK RELATIVE INDEX 1.49 (< OR =4)
[2021-03-01 12:29] LABS: ALBUMIN 3.2 GM/DL (3.2-5.2); ALT/SGPT 24 U/L (12-78); BILIRUBIN,DIRECT < 0.1 MG/DL (0.0-0.2); BILIRUBIN,TOTAL 0.2 MG/DL (0.2-1.0); BLOOD UREA NITROGEN 14 MG/DL (7-18); CALCIUM LEVEL 8.2 MG/DL (8.5-10.1); CARBON DIOXIDE LEVEL 29 MEQ/L (21-32); CHLORIDE LEVEL 108 MEQ/L (98-107); CREATININE FOR GFR 0.75 MG/DL (0.55-1.30); FREE T4 0.69 NG/DL (0.76-1.46); GLOMERULAR FILTRATION RATE > 60.0 (>58); GLUCOSE, FASTING 122 MG/DL (70-100); LIPASE 141 U/L (73-393); POTASSIUM SERUM 3.9 MEQ/L (3.5-5.1); SODIUM LEVEL 140 MEQ/L (136-145); TOTAL PROTEIN 6.5 GM/DL (6.4-8.2)
[2021-03-01] MEDS ORDERED: LABETALOL 100MG TAB PO ONE (13:40)
[2021-03-01 13:57] VITALS: BP 184/94
[2021-03-01 15:24] LABS: CK-MB VALUE MASS 1.2 NG/ML (<3.6); MB/CK RELATIVE INDEX 1.32 (< OR =4)
[2021-03-01] MEDS ORDERED: LABE100T5 PO (17:34)
[2021-03-01 18:01] VITALS: BP 165/81
== END 2021-03-01 18:16 | disposition home or self-care (01) ==
LOC: M ED 11:04
DX: I10 Essential (primary) hypertension (principal); R07.9 Chest pain, unspecified; R94.31 Abnormal electrocardiogram [ECG] [EKG]; G35 Multiple sclerosis; J45.909 Unspecified asthma, uncomplicated; G43.909 Migraine, unspecified, not intractable, without status migrainosus; Z87.891 Personal history of nicotine dependence; Z79.899 Other long term (current) drug therapy

== ENCOUNTER 2021-03-31 10:29 | Emergency (ER) | payer BC, MEDICAID ==
[~2021-03-31] VITALS: Ht 167.6 cm; Wt 108.2 kg
[~2021-03-31 10:29] MED LIST changes: +LABE100T5 PO; +SUMA100T2 PO
[2021-03-31 11:12] LABS: BASO # 0.1 10^3/uL (0.0-0.2); BASO % 0.6 % (0.0-1.0); EOS # 0.5 10^3/uL (0.0-0.5); EOS % 6.1 % (0.0-3.0); HEMATOCRIT 38.9 % (36.0-47.0); HEMOGLOBIN 12.6 g/dl (12.0-15.5); LYMPH # 2.8 10^3/uL (1.5-5.0); LYMPH % 35.8 % (24.0-44.0); MEAN CORPUSCULAR HGB CONC 32.4 g/dl (32.0-36.5); MEAN CORPUSCULAR VOLUME 92.6 fl (80.0-96.0); MONO # 0.5 10^3/uL (0.0-0.8); MONO % 6.5 % (2.0-8.0); NEUTROPHILS # 3.9 10^3/uL (1.5-8.5); NEUTROPHILS % 50.6 % (36.0-66.0); PLATELET COUNT, AUTOMATED 193 10^3/uL (150-450); WHITE BLOOD COUNT 7.7 10^3/uL (4.0-10.0)
[2021-03-31 11:23] LABS: INR 0.89; PARTIAL THROMBOPLASTIN TIME 27.4 SECONDS (25.9-37.0); PROTHROMBIN TIME 12.4 SECONDS (12.7-14.5)
[2021-03-31 11:32] LABS: BLOOD UREA NITROGEN 16 MG/DL (7-18); CALCIUM LEVEL 8.1 MG/DL (8.5-10.1); CARBON DIOXIDE LEVEL 27 MEQ/L (21-32); CHLORIDE LEVEL 110 MEQ/L (98-107); CREATININE FOR GFR 0.65 MG/DL (0.55-1.30); GLOMERULAR FILTRATION RATE > 60.0 (>58); GLUCOSE, FASTING 80 MG/DL (70-100); POTASSIUM SERUM 4.7 MEQ/L (3.5-5.1); SODIUM LEVEL 141 MEQ/L (136-145)
[2021-03-31] MEDS ORDERED: OMEP40CA5 PO (11:43)
[2021-03-31] MEDS ORDERED: ROSU20TA5 PO (11:43)
[2021-03-31] MEDS ORDERED: ADV250INH INH (11:43)
[2021-03-31 14:01] VITALS: BP 145/87
== END 2021-03-31 14:16 | disposition home or self-care (01) ==
LOC: EDBD 10:29 → M ED 10:29
DX: R07.9 Chest pain, unspecified (principal); I10 Essential (primary) hypertension; F17.200 Nicotine dependence, unspecified, uncomplicated; Z79.51 Long term (current) use of inhaled steroids; Z79.899 Other long term (current) drug therapy

== ENCOUNTER → 2021-11-23 | Outpatient (REF) ==
[~2021-11-23] MED LIST changes: +ADV250INH INH; -LABE100T4 PO; -LABE100T5 PO; +LABE100T6 PO; +LABE100T71 PO; +OMEP40CA5 PO; +ROSU20TA5 PO
[2021-11-24 05:07] LABS: HERPES ZOSTER, VARICELLA IgG <135 index (Immune >165); RUBEOLA IgG ANTIBODY 44.5 AU/mL (Immune >16.4)
== END ==
LOC: M LAB 10:56
PROVIDERS: ATTEND Nurse Practitioner Adult Health
DX: Z11.52 Encounter for screening for COVID-19 (principal)

== ENCOUNTER → 2022-01-11 | Outpatient (CLI) | payer BC, MEDICAID ==
[2022-01-11 15:56] LABS: BASO % 0.5 % (0.0-1.0); EOS # 0.3 10^3/uL (0.0-0.5); EOS % 3.6 % (0.0-3.0); HEMATOCRIT 39.4 % (36.0-47.0); HEMOGLOBIN 12.8 g/dl (12.0-15.5); LYMPH # 3.3 10^3/uL (1.5-5.0); LYMPH % 42.5 % (24.0-44.0); MEAN CORPUSCULAR HEMOGLOBIN 29.9 pg (27.0-33.0); MEAN CORPUSCULAR HGB CONC 32.5 g/dl (32.0-36.5); MEAN CORPUSCULAR VOLUME 92.1 fl (80.0-96.0); MONO # 0.5 10^3/uL (0.0-0.8); MONO % 6.2 % (2.0-8.0); NEUTROPHILS # 3.7 10^3/uL (1.5-8.5); NEUTROPHILS % 46.9 % (36.0-66.0); PLATELET COUNT, AUTOMATED 207 10^3/uL (150-450); RED BLOOD COUNT 4.28 10^6/uL (4.00-5.40); WHITE BLOOD COUNT 7.8 10^3/uL (4.0-10.0)
[2022-01-11 16:03] LABS: APPEARANCE, URINE MANUAL CLEAR (CLEAR); COLOR, URINE MANUAL YELLOW (YELLOW)
[2022-01-11 16:04] LABS: BILIRUBIN, URINE MANUAL NEGATIVE (NEGATIVE); BLOOD URINE MANUAL NEGATIVE (NEGATIVE); GLUCOSE, URINE (UA) MANUAL NEGATIVE (NEGATIVE); KETONE, URINE MANUAL NEGATIVE (NEGATIVE); LEUKOCYTE ESTERASE, URINE MAN NEGATIVE (NEGATIVE); NITRITE, URINE MANUAL NEGATIVE (NEGATIVE); PH,URINE MAN 7.5 UNITS (5.0 - 7.0); PROTEIN, URINE MANUAL NEGATIVE (NEGATIVE); UROBILINOGEN, URINE MANUAL NORMAL (NORMAL)
[2022-01-11 17:58] LABS: CHLORIDE LEVEL 104 MMOL/L (98-107); POTASSIUM SERUM 4.3 MMOL/L (3.5-5.1); SODIUM LEVEL 141 MMOL/L (136-145)
[2022-01-11 17:59] LABS: ALBUMIN 3.6 G/DL (3.2-5.2); CARBON DIOXIDE LEVEL 30 MMOL/L (20-31)
[2022-01-11 18:01] LABS: BLOOD UREA NITROGEN 20 MG/DL (9-23)
[2022-01-11 18:03] LABS: TOTAL 25(OH) VITAMIN D 18.6 NG/ML (20.0-100.0)
[2022-01-11 18:04] LABS: CALCIUM LEVEL 8.7 MG/DL (8.5-10.1); GLUCOSE, FASTING 96 MG/DL (60-100)
[2022-01-11 18:06] LABS: ALT/SGPT 26 U/L (7.0-40)
[2022-01-11 18:07] LABS: BILIRUBIN,TOTAL 0.2 MG/DL (0.3-1.2); GLOMERULAR FILTRATION RATE > 60.0 (>58); TOTAL PROTEIN 6.9 G/DL (5.7-8.2)
== END ==
LOC: M LAB 15:30
PROVIDERS: ATTEND Psychiatry & Neurology Neurology
DX: G35 Multiple sclerosis (principal); E55.9 Vitamin D deficiency, unspecified

== ENCOUNTER → 2022-03-30 | Outpatient (REF) | payer BC, MEDICAID ==
[~2022-03-30] MED LIST changes: +MONT-5 PO; -SING10TA32 PO
[2022-03-30 12:57] LABS: BASO # 0.1 10^3/uL (0.0-0.2); BASO % 0.7 % (0.0-1.0); EOS # 0.3 10^3/uL (0.0-0.5); EOS % 3.1 % (0.0-3.0); HEMATOCRIT 40.8 % (36.0-47.0); HEMOGLOBIN 13.1 g/dl (12.0-15.5); LYMPH % 34.3 % (24.0-44.0); MEAN CORPUSCULAR HEMOGLOBIN 29.2 pg (27.0-33.0); MEAN CORPUSCULAR HGB CONC 32.1 g/dl (32.0-36.5); MEAN CORPUSCULAR VOLUME 91.1 fl (80.0-96.0); MONO # 0.5 10^3/uL (0.0-0.8); MONO % 5.7 % (2.0-8.0); NEUTROPHILS # 4.8 10^3/uL (1.5-8.5); NEUTROPHILS % 55.9 % (36.0-66.0); PLATELET COUNT, AUTOMATED 247 10^3/uL (150-450); RED BLOOD COUNT 4.48 10^6/uL (4.00-5.40); WHITE BLOOD COUNT 8.7 10^3/uL (4.0-10.0)
[2022-03-30 13:21] LABS: FREE T4 0.85 NG/DL (0.89-1.76)
[2022-03-30 13:23] LABS: THYROID STIMULATING HORMONE 5.209 uIU/ML (0.55-4.78)
[2022-03-30 13:25] LABS: ALBUMIN 3.5 G/DL (3.2-5.2); ALKALINE PHOSPHATASE 65 U/L (46-116); ALT/SGPT 23 U/L (7.0-40); AST/SGOT < 8 U/L (<34); BILIRUBIN,TOTAL 0.7 MG/DL (0.3-1.2); BLOOD UREA NITROGEN 12 MG/DL (9-23); CALCIUM LEVEL 8.7 MG/DL (8.5-10.1); CARBON DIOXIDE LEVEL 27 MMOL/L (20-31); CHLORIDE LEVEL 108 MMOL/L (98-107); CHOLESTEROL LEVEL 156 MG/DL (<200); CHOLESTEROL RISK RATIO 3.59 (<5); CREATININE FOR GFR 0.79 MG/DL (0.55-1.30); GLOMERULAR FILTRATION RATE > 60.0 (>58); GLUCOSE, FASTING 93 MG/DL (60-100); HDL CHOLESTEROL 43.4 MG/DL (>40); LDL CHOLESTEROL 96.6 MG/DL (<100); NON-HDL-C 113 MG/DL; POTASSIUM SERUM 4.4 MMOL/L (3.5-5.1); SODIUM LEVEL 140 MMOL/L (136-145); TOTAL PROTEIN 6.7 G/DL (5.7-8.2); TRIGLYCERIDES LEVEL 80 MG/DL (<150)
[2022-03-30 13:41] LABS: HEMOGLOBIN A1c 5.2 % (4.0-6.0)
== END ==
LOC: M LAB REF 11:20
PROVIDERS: ATTEND Nurse Practitioner Family
DX: Z13.228 Encounter for screening for other metabolic disorders (principal)

== ENCOUNTER → 2022-04-15 | Outpatient (CLI) | payer MEDICAID | LOC: M EKG 14:48 | PROVIDERS: ATTEND Nurse Practitioner Family | DX: Z01.818 Encounter for other preprocedural examination (principal) ==

== ENCOUNTER → 2022-07-20 | Outpatient (REF) | payer MEDICAID ==
[2022-07-20 13:33] LABS: BASO # 0.1 10^3/uL (0.0-0.2); BASO % 0.9 % (0.0-1.0); EOS # 0.3 10^3/uL (0.0-0.5); EOS % 3.7 % (0.0-3.0); HEMATOCRIT 39.7 % (36.0-47.0); HEMOGLOBIN 12.9 g/dl (12.0-15.5); LYMPH # 2.8 10^3/uL (1.5-5.0); LYMPH % 39.6 % (24.0-44.0); MEAN CORPUSCULAR HGB CONC 32.5 g/dl (32.0-36.5); MEAN CORPUSCULAR VOLUME 92.3 fl (80.0-96.0); MONO # 0.3 10^3/uL (0.0-0.8); MONO % 4.9 % (2.0-8.0); NEUTROPHILS # 3.5 10^3/uL (1.5-8.5); NEUTROPHILS % 50.6 % (36.0-66.0); PLATELET COUNT, AUTOMATED 248 10^3/uL (150-450); WHITE BLOOD COUNT 6.9 10^3/uL (4.0-10.0)
[2022-07-20 13:40] LABS: ALBUMIN 3.7 G/DL (3.2-5.2); ALKALINE PHOSPHATASE 76 U/L (46-116); ALT/SGPT 30 U/L (7.0-40); AST/SGOT 20 U/L (<34); BILIRUBIN,TOTAL 0.4 MG/DL (0.3-1.2); BLOOD UREA NITROGEN 17 MG/DL (9-23); CALCIUM LEVEL 8.8 MG/DL (8.5-10.1); CARBON DIOXIDE LEVEL 26 MMOL/L (20-31); CHLORIDE LEVEL 111 MMOL/L (98-107); CHOLESTEROL LEVEL 146 MG/DL (<200); CHOLESTEROL RISK RATIO 3.08 (<5); GLOMERULAR FILTRATION RATE > 60.0 (>58); GLUCOSE, FASTING 93 MG/DL (60-100); HDL CHOLESTEROL 47.4 MG/DL (>40); LDL CHOLESTEROL 80.6 MG/DL (<100); MAGNESIUM LEVEL 1.9 MG/DL (1.8-2.4); NON-HDL-C 98.6 MG/DL; POTASSIUM SERUM 4.3 MMOL/L (3.5-5.1); SODIUM LEVEL 142 MMOL/L (136-145); TOTAL PROTEIN 6.8 G/DL (5.7-8.2); TRIGLYCERIDES LEVEL 90 MG/DL (<150)
== END ==
LOC: M LAB REF 12:33
PROVIDERS: ATTEND Nurse Practitioner Family
DX: Z13.228 Encounter for screening for other metabolic disorders (principal)

== ENCOUNTER → 2022-11-03 | Outpatient (REF) | payer MEDICAID ==
[~2022-11-03] MED LIST changes: -ROSU20TA5 PO; +ROSU20TA61 PO
[2022-11-03 18:23] LABS: APPEARANCE, URINE CLEAR (CLEAR); BACTERIA, URINE AUTO NEGATIVE (NEGATIVE); BILIRUBIN, URINE AUTO NEGATIVE (NEGATIVE); BLOOD, URINE BLOOD NEGATIVE (NEGATIVE); COLOR, URINE STRAW (YELLOW); GLUCOSE, URINE (UA) AUTO NEGATIVE (NEGATIVE); KETONE, URINE AUTO NEGATIVE (NEGATIVE); LEUKOCYTE ESTERASE, URINE AUTO NEGATIVE (NEGATIVE); NITRITE, URINE AUTO NEGATIVE (NEGATIVE); PROTEIN, URINE AUTO NEGATIVE (NEGATIVE); RBC, URINE AUTO 0 /HPF (0-3); SPECIFIC GRAVITY URINE AUTO 1.011 (1.002-1.035); SQUAMOUS EPITHELIAL CELL UR AU 2 /HPF (0-6); UROBILINOGEN, URINE AUTO 0.2 mg/dL (0.0-2.0); WBC, URINE AUTO 1 /HPF (0-3)
== END ==
LOC: M SMT 16:57
PROVIDERS: ATTEND Specialist
DX: N39.41 Urge incontinence (principal)

== ENCOUNTER → 2022-11-18 | Outpatient (CLI) | payer MEDICAID | LOC: M PLAIMG 08:01 | PROVIDERS: ATTEND Physician Assistant | DX: R26.81 Unsteadiness on feet (principal) ==

== ENCOUNTER → 2022-11-19 | Outpatient (CLI) | payer MEDICAID | LOC: M PLAIMG 13:59 | PROVIDERS: ATTEND Physician Assistant | DX: G35 Multiple sclerosis (principal); K76.9 Liver disease, unspecified; R26.81 Unsteadiness on feet ==

== ENCOUNTER → 2022-11-19 | Outpatient (CLI) | payer MEDICAID | LOC: M PLAIMG 13:57 | PROVIDERS: ATTEND Specialist | DX: N20.0 Calculus of kidney (principal) ==

== ENCOUNTER → 2023-04-04 | Outpatient (REF) | payer MEDICAID ==
[2023-04-04 17:29] LABS: BASO % 0.5 % (0.0-1.0); EOS # 0.3 10^3/uL (0.0-0.5); EOS % 4.4 % (0.0-3.0); HEMATOCRIT 41.1 % (36.0-47.0); HEMOGLOBIN 13.8 g/dl (12.0-15.5); LYMPH # 2.8 10^3/uL (1.5-5.0); LYMPH % 37.7 % (24.0-44.0); MEAN CORPUSCULAR HGB CONC 33.6 g/dl (32.0-36.5); MEAN CORPUSCULAR VOLUME 89.3 fl (80.0-96.0); MONO # 0.4 10^3/uL (0.0-0.8); MONO % 5.2 % (2.0-8.0); NEUTROPHILS # 3.8 10^3/uL (1.5-8.5); NEUTROPHILS % 52.1 % (36.0-66.0); PLATELET COUNT, AUTOMATED 242 10^3/uL (150-450); WHITE BLOOD COUNT 7.4 10^3/uL (4.0-10.0)
[2023-04-04 17:41] LABS: ALBUMIN 3.7 G/DL (3.2-5.2); ALKALINE PHOSPHATASE 84 U/L (46-116); ALT/SGPT 27 U/L (7.0-40); AST/SGOT 19 U/L (<34); BILIRUBIN,TOTAL 0.5 MG/DL (0.3-1.2); BLOOD UREA NITROGEN 12 MG/DL (9-23); CALCIUM LEVEL 9.1 MG/DL (8.5-10.1); CARBON DIOXIDE LEVEL 30 MMOL/L (20-31); CHLORIDE LEVEL 104 MMOL/L (98-107); CHOLESTEROL LEVEL 153 MG/DL (<200); CHOLESTEROL RISK RATIO 3.46 (<5); CREATININE FOR GFR 0.78 MG/DL (0.55-1.30); GLOMERULAR FILTRATION RATE > 60.0 (>58); GLUCOSE, FASTING 85 MG/DL (60-100); HDL CHOLESTEROL 44.1 MG/DL (>40); HEMOGLOBIN A1c 5.5 % (4.0-6.0); LDL CHOLESTEROL 84.1 MG/DL (<100); MAGNESIUM LEVEL 2.1 MG/DL (1.8-2.4); NON-HDL-C 108.9 MG/DL; POTASSIUM SERUM 3.9 MMOL/L (3.5-5.1); SODIUM LEVEL 138 MMOL/L (136-145); TOTAL PROTEIN 7.2 G/DL (5.7-8.2); TRIGLYCERIDES LEVEL 124 MG/DL (<150)
[2023-04-04 17:43] LABS: THYROID STIMULATING HORMONE 3.396 uIU/ML (0.55-4.78); TOTAL 25(OH) VITAMIN D 62.6 NG/ML (20.0-100.0)
== END ==
LOC: M LAB REF 16:35
PROVIDERS: ATTEND Nurse Practitioner Family
DX: E66.01 Morbid (severe) obesity due to excess calories (principal); E55.9 Vitamin D deficiency, unspecified

== ENCOUNTER → 2023-04-28 | Outpatient (CLI) | payer MEDICAID ==
[~2023-04-28] MED LIST changes: +LABE100T40 PO; -LABE100T71 PO; +PROHANCE 279.3MG/ML 15ML VIAL ONE; +PROHANCE 279.3MG/ML 5ML VIAL ONE
== END ==
LOC: M PLAIMG 13:05
PROVIDERS: ATTEND Physician Assistant
DX: G35 Multiple sclerosis (principal)

== ENCOUNTER → 2023-05-05 | Outpatient (CLI) | payer MEDICAID | LOC: M PLAIMG 13:20 | PROVIDERS: ATTEND Physician Assistant | DX: G35 Multiple sclerosis (principal) ==

== ENCOUNTER 2023-06-11 12:31 | Emergency (ER) | payer MEDICAID ==
[~2023-06-11] VITALS: Ht 167.6 cm; Wt 112.7 kg
[~2023-06-11 12:31] MED LIST changes: -PROHANCE 279.3MG/ML 15ML VIAL ONE; -PROHANCE 279.3MG/ML 5ML VIAL ONE
[2023-06-11] MEDS ORDERED: IPRA0.00 NEB (12:40)
[2023-06-11] MEDS ORDERED: MUCI1TAB16 PO (14:07)
[2023-06-11] MEDS ORDERED: BENZ200C70 PO (14:07)
[2023-06-11] MEDS ORDERED: IPRA0.00 INH (14:07)
[2023-06-11] MEDS: guaiFENesin ER TABLET 600 MG TAB PO SCH (14:26)
[2023-06-11] MEDS: BENZONATATE 100MG CAPSULE PO ONE (14:27)
[2023-06-11 14:29] VITALS: BP 170/92; TEMP 99; O2SAT 96
== END 2023-06-11 14:30 | disposition home or self-care (01) ==
LOC: M ED 12:31
DX: J21.1 Acute bronchiolitis due to human metapneumovirus (principal); R05.9 Cough, unspecified; I10 Essential (primary) hypertension; F17.210 Nicotine dependence, cigarettes, uncomplicated; Z79.51 Long term (current) use of inhaled steroids; Z79.899 Other long term (current) drug therapy

== ENCOUNTER 2023-06-18 17:17 | Emergency (ER) | payer MEDICAID ==
[~2023-06-18] VITALS: Ht 167.6 cm; Wt 110.7 kg
[2023-06-18 17:17] VITALS: TEMP 97.8; O2SAT 97
[~2023-06-18 17:17] MED LIST changes: +BENZ200C70 PO; +DOXY-323 PO; -DOXY-443 PO; +IPRA0.00 INH; +MUCI1TAB16 PO
[2023-06-18] MEDS: ACETAMINOPHEN 500 MG TAB PO ONE (18:45)
[2023-06-18 18:51] VITALS: BP 152/98
[2023-06-18] MEDS ORDERED: PRED20TA PO (19:17)
[2023-06-18] MEDS: predniSONE 20 MG TAB PO ONE (19:25)
[2023-06-18] MEDS ORDERED: CYCL5TAB PO (20:49)
== END 2023-06-18 19:34 | disposition home or self-care (01) ==
LOC: M ED 17:17
DX: M54.6 Pain in thoracic spine (principal); M54.2 Cervicalgia; M62.830 Muscle spasm of back; Z79.51 Long term (current) use of inhaled steroids; Z79.52 Long term (current) use of systemic steroids; Z79.899 Other long term (current) drug therapy
CPT/HCPCS: 99283; J7512

== ENCOUNTER → 2023-10-27 | Outpatient (REF) | payer MEDICAID ==
[~2023-10-27] MED LIST changes: +CYCL5TAB PO; +ONDA-282 PO; -ONDA4TAB6 PO; +PRED20TA PO
== END ==
LOC: M LAB REF 16:31
PROVIDERS: ATTEND Nurse Practitioner Family
DX: J02.9 Acute pharyngitis, unspecified (principal)

== ENCOUNTER → 2023-11-24 | Outpatient (CLI) | payer OTHER ==
[~2023-11-24] MED LIST changes: -DOXY-323 PO; +DOXY-441 PO; -ROSU20TA61 PO; +ROSU20TA86 PO
== END ==
LOC: M WHC 14:56
PROVIDERS: ATTEND Nurse Practitioner Family
DX: Z12.31 Encounter for screening mammogram for malignant neoplasm of breast (principal)

== ENCOUNTER → 2023-12-01 | Outpatient (REF) | payer OTHER ==
[2023-12-01 18:36] LABS: BASO # 0.1 10^3/uL (0.0-0.2); BASO % 0.9 % (0.0-1.0); EOS # 0.2 10^3/uL (0.0-0.5); HEMATOCRIT 37.7 % (36.0-47.0); HEMOGLOBIN 12.3 g/dl (12.0-15.5); LYMPH # 2.6 10^3/uL (1.5-5.0); LYMPH % 39.4 % (24.0-44.0); MEAN CORPUSCULAR HEMOGLOBIN 29.4 pg (27.0-33.0); MEAN CORPUSCULAR HGB CONC 32.6 g/dl (32.0-36.5); MEAN CORPUSCULAR VOLUME 90.2 fl (80.0-96.0); MONO # 0.4 10^3/uL (0.0-0.8); MONO % 5.9 % (2.0-8.0); NEUTROPHILS # 3.4 10^3/uL (1.5-8.5); NEUTROPHILS % 50.5 % (36.0-66.0); PLATELET COUNT, AUTOMATED 274 10^3/uL (150-450); RED BLOOD COUNT 4.18 10^6/uL (4.00-5.40); WHITE BLOOD COUNT 6.6 10^3/uL (4.0-10.0)
[2023-12-01 19:33] LABS: FOLATE 8.3 NG/ML (>5.4)
[2023-12-01 19:38] LABS: ALBUMIN 3.5 G/DL (3.2-5.2); BILIRUBIN,TOTAL 0.3 MG/DL (0.3-1.2); CALCIUM LEVEL 9.4 MG/DL (8.5-10.1); CREATININE FOR GFR 1.22 MG/DL (0.55-1.30); GLOMERULAR FILTRATION RATE 50.3 (>58); MAGNESIUM LEVEL 2.1 MG/DL (1.8-2.4); POTASSIUM SERUM 4.1 MMOL/L (3.5-5.1); TOTAL PROTEIN 7.2 G/DL (5.7-8.2)
[2023-12-01 19:40] LABS: HEMOGLOBIN A1c 5.4 % (4.0-6.0)
== END ==
LOC: M LAB REF 17:25
PROVIDERS: ATTEND Nurse Practitioner Family
DX: K14.9 Disease of tongue, unspecified (principal); E66.9 Obesity, unspecified

== ENCOUNTER → 2023-12-21 | Outpatient (CLI) | payer OTHER ==
[~2023-12-21] MED LIST changes: -CYCL5TAB PO; +CYCL5TAB4 PO
== END ==
LOC: M WHC 13:38
PROVIDERS: ATTEND Nurse Practitioner Family
DX: Z12.31 Encounter for screening mammogram for malignant neoplasm of breast (principal)

== ENCOUNTER → 2024-02-23 | Outpatient (REF) | payer OTHER ==
[~2024-02-23] MED LIST changes: -ADV250INH INH; +ADVA1AER9 INH
[2024-02-23 14:15] LABS: URINE PREG TEST NEGATIVE (NEGATIVE)
== END ==
LOC: M LAB REF 13:36
PROVIDERS: ATTEND Physician Assistant
DX: N91.2 Amenorrhea, unspecified (principal)

== ENCOUNTER → 2024-03-09 | Outpatient (REF) | payer OTHER ==
[2024-03-09 16:56] LABS: AMORPHOUS SEDIMENT SMALL (NEGATIVE); APPEARANCE, URINE CLOUDY (CLEAR); BACTERIA, URINE AUTO 1+ (NEGATIVE); BILIRUBIN, URINE AUTO NEGATIVE (NEGATIVE); BLOOD, URINE BLOOD NEGATIVE (NEGATIVE); COLOR, URINE YELLOW (YELLOW); GLUCOSE, URINE (UA) AUTO NEGATIVE (NEGATIVE); KETONE, URINE AUTO NEGATIVE (NEGATIVE); LEUKOCYTE ESTERASE, URINE AUTO NEGATIVE (NEGATIVE); MUCUS, URINE SMALL (NEGATIVE); NITRITE, URINE AUTO NEGATIVE (NEGATIVE); PROTEIN, URINE AUTO NEGATIVE (NEGATIVE); RBC, URINE AUTO 1 /HPF (0-3); SPECIFIC GRAVITY URINE AUTO 1.019 (1.002-1.035); SQUAMOUS EPITHELIAL CELL UR AU 39 /HPF (0-6); UROBILINOGEN, URINE AUTO 0.2 mg/dL (0.0-2.0); WBC, URINE AUTO 3 /HPF (0-3)
== END ==
LOC: M LAB REF 16:21
PROVIDERS: ATTEND Physician Assistant Medical
DX: N39.0 Urinary tract infection, site not specified (principal)

== ENCOUNTER → 2024-03-28 | Outpatient (REF) | payer OTHER ==
[~2024-03-28] MED LIST changes: +FAMO1TAB11 PO; +HYDR-3363 PO; +LISI10TA22 PO; +MELO7.5T35 PO; +OXYB-54 PO
[2024-03-29 13:32] LABS: CREATININE, URINE 106.8 MG/DL; MAU/CREAT RATIO 6.5 MCG/MG (0.0-30.0)
== END ==
LOC: M LAB REF 12:10
PROVIDERS: ATTEND Nurse Practitioner Family
DX: B34.9 Viral infection, unspecified (principal)

== ENCOUNTER → 2024-04-02 | Outpatient (REF) | payer OTHER ==
[2024-04-02 17:12] LABS: ALBUMIN 3.4 G/DL (3.2-5.2); ALKALINE PHOSPHATASE 70 U/L (35-104); ALT/SGPT 23 U/L (7.0-40); AST/SGOT 16 U/L (<34); BILIRUBIN,TOTAL 0.3 MG/DL (0.3-1.2); BLOOD UREA NITROGEN 14 MG/DL (9-23); CALCIUM LEVEL 8.6 MG/DL (8.5-10.1); CARBON DIOXIDE LEVEL 27 MMOL/L (20-31); CHLORIDE LEVEL 111 MMOL/L (98-107); CREATININE FOR GFR 0.78 MG/DL (0.55-1.30); GLOMERULAR FILTRATION RATE > 60.0 (>58); GLUCOSE, FASTING 83 MG/DL (60-100); MAGNESIUM LEVEL 1.9 MG/DL (1.8-2.4); POTASSIUM SERUM 4.1 MMOL/L (3.5-5.1); SODIUM LEVEL 145 MMOL/L (136-145); TOTAL PROTEIN 6.7 G/DL (5.7-8.2)
== END ==
LOC: M LAB REF 16:07
PROVIDERS: ATTEND Nurse Practitioner Family
DX: I10 Essential (primary) hypertension (principal)

== ENCOUNTER 2024-04-06 07:17 | Day surgery (SDC) | payer OTHER ==
[~2024-04-06] VITALS: Ht 167.6 cm; Wt 102.1 kg
[2024-04-06 09:15] VITALS: BP 162/82; O2SAT 96
== END 2024-04-06 09:25 | disposition home or self-care (01) ==
LOC: M OPP 07:17
PROVIDERS: ATTEND Surgery
DX: Z12.11 Encounter for screening for malignant neoplasm of colon (principal); K64.1 Second degree hemorrhoids; Z79.899 Other long term (current) drug therapy; J45.909 Unspecified asthma, uncomplicated

== ENCOUNTER 2024-05-14 09:55 | Emergency (ER) | payer OTHER ==
[~2024-05-14] VITALS: Ht 167.6 cm; Wt 103.1 kg
[2024-05-14 10:10] VITALS: TEMP 98.1
[2024-05-14 12:25] VITALS: BP 180/88; O2SAT 100
[2024-05-14 12:49] LABS: KETONE, URINE AUTO RFX NEGATIVE (NEGATIVE); LEUKOCYTE ESTERASE UR AUTO RFX NEGATIVE (NEGATIVE); NITRITE, URINE AUTO RFX NEGATIVE (NEGATIVE); RBC, URINE AUTO RFX 0 /HPF (0-3); SQUAM EPITHELIAL CELL UR AURFX 2 /HPF (0-6); WBC, URINE AUTO RFX 2 /HPF (0-3)
[2024-05-14] MEDS ORDERED: FLUTISP (12:53)
[2024-05-14] MEDS ORDERED: LISI20TA33 (12:53)
[2024-05-14] MEDS ORDERED: HYDR12.55 (12:53)
[2024-05-14] MEDS: ACETAMINOPHEN 500 MG TAB PO ONE (13:52)
[2024-05-14 14:22] LABS: BASO # 0.1 10^3/uL (0.0-0.2); BASO % 0.8 % (0.0-1.0); EOS # 0.3 10^3/uL (0.0-0.5); EOS % 4.3 % (0.0-3.0); HEMATOCRIT 38.6 % (36.0-47.0); HEMOGLOBIN 12.8 g/dl (12.0-15.5); LYMPH # 2.8 10^3/uL (1.5-5.0); LYMPH % 46.1 % (24.0-44.0); MEAN CORPUSCULAR HEMOGLOBIN 30.2 pg (27.0-33.0); MEAN CORPUSCULAR HGB CONC 33.2 g/dl (32.0-36.5); MONO # 0.4 10^3/uL (0.0-0.8); MONO % 6.5 % (2.0-8.0); NEUTROPHILS # 2.5 10^3/uL (1.5-8.5); NEUTROPHILS % 42.1 % (36.0-66.0); PLATELET COUNT, AUTOMATED 192 10^3/uL (150-450); RED BLOOD COUNT 4.24 10^6/uL (4.00-5.40)
== END 2024-05-14 14:15 | disposition left against medical advice (07) ==
LOC: M ED 09:55
DX: R10.9 Unspecified abdominal pain (principal); K21.9 Gastro-esophageal reflux disease without esophagitis; J45.909 Unspecified asthma, uncomplicated; I10 Essential (primary) hypertension; Z79.51 Long term (current) use of inhaled steroids; Z79.899 Other long term (current) drug therapy; Z53.9 Procedure and treatment not carried out, unspecified reason

== ENCOUNTER → 2024-06-04 | Outpatient (CLI) | payer OTHER ==
[~2024-06-04] MED LIST changes: +FLUTISP; +HYDR12.55; +LISI20TA33
== END ==
LOC: M WHC 15:12
PROVIDERS: ATTEND Nurse Practitioner Family
DX: R92.8 Other abnormal and inconclusive findings on diagnostic imaging of breast (principal)

== ENCOUNTER → 2024-08-30 | Outpatient (REF) | payer OTHER ==
[~2024-08-30] MED LIST changes: +TOPI-256 PO; -TOPI25TA10 PO
[2024-08-30 18:19] LABS: CALCIUM LEVEL 9.3 MG/DL (8.5-10.1); CARBON DIOXIDE LEVEL 30.0 MMOL/L (20-31); CHLORIDE LEVEL 107.0 MMOL/L (98-107); CREATININE FOR GFR 1.0 MG/DL (0.55-1.30); GLOMERULAR FILTRATION RATE 69.5 (>58); POTASSIUM SERUM 4.3 MMOL/L (3.5-5.1); SODIUM LEVEL 145.0 MMOL/L (136-145)
== END ==
LOC: M LAB REF 17:06
PROVIDERS: ATTEND Nurse Practitioner Family
DX: I10 Essential (primary) hypertension (principal)

== ENCOUNTER → 2024-10-05 | Outpatient (REF) | payer OTHER ==
[2024-10-05 17:20] LABS: ALT/SGPT 29 U/L (7.0-40); AST/SGOT 26 U/L (<34); CALCIUM LEVEL 9.3 MG/DL (8.5-10.1); CARBON DIOXIDE LEVEL 29 MMOL/L (20-31); CHLORIDE LEVEL 108 MMOL/L (98-107); CHOLESTEROL LEVEL 159 MG/DL (<200); CHOLESTEROL RISK RATIO 3.47 (<5); CREATININE FOR GFR 0.88 MG/DL (0.55-1.30); GLOMERULAR FILTRATION RATE 81.0 (>58); LDL CHOLESTEROL 85.9 MG/DL (<100); NON-HDL-C 113.3 MG/DL; POTASSIUM SERUM 4.2 MMOL/L (3.5-5.1); SODIUM LEVEL 146 MMOL/L (136-145); TRIGLYCERIDES LEVEL 137 MG/DL (<150)
[2024-10-05 17:25] LABS: HCG, SERUM QUALITATIVE NEGATIVE (NEGATIVE)
== END ==
LOC: M LAB REF 16:14
PROVIDERS: ATTEND Nurse Practitioner Family
DX: N91.2 Amenorrhea, unspecified (principal); E78.5 Hyperlipidemia, unspecified; I10 Essential (primary) hypertension

== ENCOUNTER → 2024-10-17 | Outpatient (CLI) | payer MEDICAID, OTHER | LOC: M PLALAB 14:51 | PROVIDERS: ATTEND Specialist | DX: N92.6 Irregular menstruation, unspecified (principal) ==

== ENCOUNTER 2025-01-18 09:45 | Emergency (ER) | payer OTHER ==
[~2025-01-18] VITALS: Ht 167.6 cm; Wt 102.8 kg
[~2025-01-18 09:45] MED LIST changes: -LABE100T6 PO; +LABE100T91 PO
[2025-01-18 10:37] LABS: BASO # 0.1 10^3/uL (0.0-0.2); BASO % 1.0 % (0.0-1.0); EOS # 0.6 10^3/uL (0.0-0.5); EOS % 9.4 % (0.0-3.0); LYMPH # 2.0 10^3/uL (1.5-5.0); LYMPH % 32.5 % (24.0-44.0); MONO # 0.3 10^3/uL (0.0-0.8); MONO % 4.9 % (2.0-8.0); NEUTROPHILS # 3.3 10^3/uL (1.5-8.5); NEUTROPHILS % 51.9 % (36.0-66.0); PLATELET COUNT, AUTOMATED 223 10^3/uL (150-450)
[2025-01-18 11:00] LABS: CK-MB VALUE MASS 2.6 NG/ML (<3.6)
[2025-01-18 11:03] LABS: ALT/SGPT 33 U/L (7.0-40); AST/SGOT 27 U/L (<34); CALCIUM LEVEL 9.2 MG/DL (8.5-10.1); CARBON DIOXIDE LEVEL 28 MMOL/L (20-31); CHLORIDE LEVEL 108 MMOL/L (98-107); CREATININE FOR GFR 0.83 MG/DL (0.55-1.30); GLOMERULAR FILTRATION RATE 86.9 (>58); POTASSIUM SERUM 4.1 MMOL/L (3.5-5.1); SODIUM LEVEL 143 MMOL/L (136-145)
[2025-01-18 11:05] LABS: FREE T4 1.03 NG/DL (0.89-1.76)
[2025-01-18 11:06] LABS: INR 0.89
[2025-01-18 11:08] LABS: HCG, SERUM QUALITATIVE NEGATIVE (NEGATIVE)
[2025-01-18 11:09] LABS: CPK CREATINE PHOSPHOKINASE 130 U/L (34-145); MB/CK RELATIVE INDEX 2.00 (< OR =4)
[2025-01-18 12:22] LABS: CK-MB VALUE MASS 2.4 NG/ML (<3.6); CPK CREATINE PHOSPHOKINASE 149.0 U/L (34-145); MB/CK RELATIVE INDEX 1.61 (< OR =4)
[2025-01-18] MEDS ORDERED: ERGO500029 PO (12:47)
[2025-01-18] MEDS ORDERED: CETI-24 PO (12:47)
[2025-01-18] MEDS ORDERED: CYCL-707 PO (12:47)
[2025-01-18] MEDS ORDERED: LISI40TA10 PO (12:47)
[2025-01-18] MEDS ORDERED: MELO15TA28 PO (12:47)
[2025-01-18 13:06] VITALS: BP 170/78
[2025-01-18] MEDS ORDERED: VENTAER INH (13:36)
[2025-01-18] MEDS ORDERED: HOME MED LIST COMPLETE! XX SCH (13:40)
[2025-01-18 13:53] VITALS: BP 212/114; TEMP 98; O2SAT 100
== END 2025-01-18 14:01 | disposition home or self-care (01) ==
LOC: M ED 09:45
DX: M79.18 Myalgia, other site (principal); E78.5 Hyperlipidemia, unspecified; G43.909 Migraine, unspecified, not intractable, without status migrainosus; E66.9 Obesity, unspecified; Z90.49 Acquired absence of other specified parts of digestive tract; Z87.891 Personal history of nicotine dependence; Z79.899 Other long term (current) drug therapy

== ENCOUNTER → 2025-02-11 | Outpatient (REF) | payer OTHER ==
[~2025-02-11] MED LIST changes: +CETI-24 PO; +ERGO500029 PO; +LISI40TA10 PO; +MELO15TA28 PO; +VENTAER INH
[2025-02-15 11:00] LABS: HPV APTIMA Detected (Not Detected)
== END ==
LOC: M LAB REF 12:07
PROVIDERS: ATTEND Nurse Practitioner Family
DX: N76.0 Acute vaginitis (principal); Z12.4 Encounter for screening for malignant neoplasm of cervix